=== PATIENT | female | born 1945 | race Caucasian/White ===

== ENCOUNTER 2024-02-02 10:14 | Outpatient (AMB) | payer MEDICARE, SELFPAY ==
--- NOTE | 2024-02-02 10:18 | MHC.PC.OV ---
Vital Signs 02/02/24 10:33 Height 4 ft 11.65 in Weight 163 lb 8 oz BMI 32.3 BP 128/70 Blood Pressure Location Lt brachial Position Sitting Respiration 14 Pulse 87 Pulse Source Pulse Oximeter Temp 98.1 F Temp Source Oral Pulse Oximetry (%) 97 Oxygen Delivery Method Room Air Intake Visit Reasons: ESTABLISH CARE Intake Note: New patient visit Allergies codeine Allergy (Unknown, Verified 02/02/24 10:29) Nausea morphine Allergy (Unknown, Verified 02/02/24 10:29) Nausea tizanidine Allergy (Unknown, Verified 02/02/24 10:29) dry mouth Medication List - Last Reconciled 02/02/24 by Richelle Holcomb PA-C amlodipine 2.5 mg PO DAILY levothyroxine 88 mcg PO DAILY multivitamin 1 tab PO DAILY omeprazole 20 mg PO DAILY semaglutide (Ozempic) mg subcut tramadol 50 mg PO BID PRN vitamins A,C,H-qjkt-ahhqrt 2,148 mcg-113 mg-45 mg-17.4mg (PreserVision AREDS) 2 tabs PO BID Tobacco use date assessed: 02/02/24 Fall risk assessment: 2 + Falls in past year (Tripped) Last assessed Fall Risk: 02/02/24 Dental Screening Dental Screen Date: 02/02/24 Did you have a dental visit in the last 12 months?: Yes Did you have a dental problem in the last 6 months where you did not have access to dental care?: No Was dental information given to patient?: Patient has dentist HPI ESTABLISH CARE HPI Details Patient is an 78 year old female with a significant past medical history of hypothyroidism, CKD stage 3, hypertension, 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 This is her 1st visit here and she was last seen by myself in August. Psych: Her daughter, Tita, in December. She was dx with metastatic melanoma and within 2 weeks . Patient states that she is really struggling with this and most of our visit today was spent discussing Tita. She was her daughter who went everywhere with her. Tita has 3 boys, the youngest is 25. She states that this was sudden and unexpected and has been very challenging. She knows someone through the home who helps with grief counseling and states that she will consider reaching out if this does not gradually improve. She has 3 other children and 2 of them live very close by and her daughter who is in [place] calls in all the time. She states that she also goes to anglican. CV: bp today is wnl. She is on amlodipine 2.5 mg and losartan 50 mg Endo: last tsh was wnl. on levothyroxine 88 mcg. Her dm is managed with ozempic. Her last A1c was 6.4. Nephro: Follows with Dr. Brito. Musculoskeletal: Feels better with tramadol at night. States her neck pain and neuropathy feel better. [facility] Medical History (Updated 02/02/24 @ 12:52 by Richelle Holcomb PA-C) Vitreous hemorrhage, unspecified eye Hyperglycemia Type 2 diabetes mellitus Postablative hypothyroidism Obesity, Class I, BMI 30-34.9 Mild mitral regurgitation Macular degeneration Lumbar spinal stenosis Lumbar pain with radiation down both legs Hypothyroidism HTN (hypertension) History of nephrolithiasis Dyslipidemia Diabetic neuropathy CKD stage 3 due to type 2 diabetes mellitus Cervical spondylosis Surgical History (Updated 02/02/24 @ 11:02 by Tracy Mcintyre CMA) History of bilateral knee replacement History of colonoscopy Family History (Updated 02/02/24 @ 11:05 by Tracy Mcintyre CMA) Mother Family history of CABG Father Alcoholism Daughter Melanoma Sister Cirrhosis of liver Other Substance use Social History (Updated 02/02/24 @ 11:06 by Tracy Mcintyre CMA) Housing: House Patient Tobacco Use Status: Never used Tobacco e-Cigarette/Vaping Use: Never Used Second Hand Smoke Exposure: No service: No Current occupational status: retired Current occupational exposures/hazards: No Cognitive needs: No Hearing needs: No Vision needs: No Questionnaire PHQ-9 Over the last 2 weeks, how often have you been bothered by any of the following problems? 1. Little interest or pleasure in doing things: several days 2. Feeling down, depressed, or hopeless: several days 3. Trouble falling or staying asleep, or sleeping too much: not at all 4. Feeling tired or having little energy: several days 5. Poor appetite or overeating: several days 6. Feeling bad about yourself - or that you are a failure or have let yourself or your family down: not at all 7. Trouble concentrating on things, such as reading the newspaper or watching television: several days 8. Moving or speaking so slowly that other people could have noticed. Or the opposite - being so fidgety or restless that you have been moving around a lot more than usual: not at all 9. Thoughts that you would be better off or of hurting yourself in some way: not at all Total score: 5 Depression Screening Interpretation: Positive Depression Screening Done: Yes 06719 - PHQ-9 Billing: Yes Source: Developed by Drs. Artemio Diaz, Belinda Ding, Christian Godinez and colleagues, with an educational tonia from [employer]. Thrive Questionnaire Date Thrive assessed: 02/02/24 I am a: Patient What is your living situation today?: I have a steady place to live Within the past 12 months, did the food you bought not last and you didn't have the money to get more?: Never true Within the past 12 months, did you worry whether your food would run out before you got money to buy more?: Never true Do you have trouble paying for medicines?: No Do you have trouble getting transportation to medical appointments?: No Do you have trouble paying your heating and electricity bill?: No Do you have trouble taking care of your child, family member or friend?: No Do you have trouble with day-to-day activities such as bathing, preparing meals, shopping, managing finances, etc.?: No Are you currently unemployed and looking for a job?: No Are you interested in more education?: No Please select the resources that you would like help with: None Currently or been in a relationship where the following occur: No concerns reported THRIVE Score: 0 AUDIT C Alcohol Use Questionnaire (AUDIT-C) 1. How often do you have a drink containing alcohol?: Never 3. How often do you have six or more drinks on one occasion?: Never Total Score: 0 BRIAN-7 AMB Questionnaire BRIAN-7 Date BRIAN - 7 assessed: 02/02/24 Feeling nervous, anxious, or on edge: 1 = Several days Not being able to stop or control worryin = Several days Worrying too much about different things: 0 = Not at all Trouble relaxin = Not at all Being so restless that it is hard to sit still: 0 = Not at all Becoming easily annoyed or irritable: 0 = Not at all Feeling afraid as if something awful might happen: 0 = Not at all Total BRIAN-7 score (0-4 normal; 5-9 mild; 10-14 moderate; 15-21 severe): 2 Source: Developed by Drs. Artemio Diaz, Belinda Ding, Christian Godinez and colleagues, with an educational tonia from [employer]. BRIAN-7 Assessment Billing BRIAN-7 Assessment Tool: BRIAN-7 Assessment 77058 Physical exam (Primary Care) Vital Signs: Last Vital Signs Temp 98.1 F 02/02/24 10:33 Pulse 87 02/02/24 10:33 Resp 14 02/02/24 10:33 BP 128/70 02/02/24 10:33 Pulse Ox 97 02/02/24 10:33 Oxygen Delivery Method Room Air 02/02/24 10:33 BMI result Body Mass Index 32.3 Tobacco/Smoking Status: Tobacco use Status Tobacco use date assessed 02/02/24 02/02/24 10:22 Patient Tobacco Use Status Never used Tobacco 02/02/24 11:06 e-Cigarette/Vaping Use Never Used 02/02/24 11:06 PHQ-9: PHQ-9 Score PHQ-9: Total score 5 02/02/24 11:06 Depression Screening Interpretation: Positive Thrive Assessment: Date of Thrive Assessment Date Thrive assessed 02/02/24 02/02/24 11:06 Currently or been in a relationship where the following occur: No concerns reported Const Orientation/consciousness: patient oriented x3 HENMT Ears: hearing grossly normal bilaterally Neck Thyroid: Thyroid normal Lymphatic: no lymphadenopathy noted Resp Auscultation: clear to auscultation bilaterally Cardio Rate: regular rate Rhythm: regular rhythm Heart sounds: S1 normal heart sound present and S2 normal heart sound present GI Inspection: Yes normal to inspection Palpation (GI): Soft to palpation and Other GI palpation findings present (nontender, no cva tenderness) Auscultation: normoactive bowel sounds Rectal Exam - Female: deferred Skin General skin exam: no rashes or lesions noted Neuro General: patient oriented x3, gait normal and no focal motor deficits Assessment and Plan Assessment & Plan (1) Controlled type 2 diabetes mellitus: Code(s): E11.9 - Type 2 diabetes mellitus without complications Qualifiers: Diabetes mellitus alf insulin use: without alf use Diabetes mellitus complication status: with kidney complications Diabetes mellitus complication detail: with chronic kidney disease Chronic kidney disease stage: stage 3 (moderate) Qualified Code(s): E11.22 - Type 2 diabetes mellitus with diabetic chronic kidney disease; N18.30 - Chronic kidney disease, stage 3 unspecified Plan: Currently well-controlled with Ozempic 0.5 mg. Continue current regimen. Diabetic labs ordered. Follow up in 3 months. Sooner if needed. (2) Postablative hypothyroidism: Code(s): E89.0 - Postprocedural hypothyroidism Plan: TSH ordered. Continue levothyroxine 88 mcg. (3) Dyslipidemia: Code(s): E78.5 - Hyperlipidemia, unspecified Plan: Diet controlled. (4) Diabetic neuropathy: Code(s): E11.40 - Type 2 diabetes mellitus with diabetic neuropathy, unspecified Qualifiers: Diabetes mellitus type: type 2 Diabetes mellitus complication detail: diabetic polyneuropathy Qualified Code(s): E11.42 - Type 2 diabetes mellitus with diabetic polyneuropathy Plan: No improvement with gabapentin. Tolerates tramadol. (5) CKD stage 3 due to type 2 diabetes mellitus: Code(s): E11.22 - Type 2 diabetes mellitus with diabetic chronic kidney disease; N18.30 - Chronic kidney disease, stage 3 unspecified Plan: Follows with Dr. Brito. (6) HTN (hypertension): Code(s): I10 - Essential (primary) hypertension Qualifiers: Hypertension type: primary hypertension Qualified Code(s): I10 - Essential (primary) hypertension Plan: Recently had amlodipine added to her regimen. She is also on losartan 50 mg. (7) Grief reaction: Code(s): F43.21 - Adjustment disorder with depressed mood Plan: offered referral/medication and declines. has a good support system with son and daughter and anglican. She will let me know if she changes her mind Coding Level of Care Code Est Pt Level 4 (44364) Complex EM visit Add On G2211 Diagnoses Controlled type 2 diabetes mellitus with stage 3 chronic kidney disease, without long-term current use of insulin E11.22; N18.30 Diabetes mellitus predatory animal exterminator insulin use: without predatory animal exterminator use Diabetes mellitus complication status: with kidney complications Diabetes mellitus complication detail: with chronic kidney disease Chronic kidney disease stage: stage 3 (moderate) Postablative hypothyroidism E89.0 Dyslipidemia E78.5 Diabetic polyneuropathy associated with type 2 diabetes mellitus E11.42 Diabetes mellitus type: type 2 Diabetes mellitus complication detail: diabetic polyneuropathy CKD stage 3 due to type 2 diabetes mellitus E11.22; N18.30 Primary hypertension I10 Hypertension type: primary hypertension Grief reaction F43.21 Additional Codes BRIAN-7 Assessment Billing - BRIAN-7 Assessment Tool: BRIAN-7 Assessment [id number] ([id number])
[2024-02-02 10:33] VITALS: BP 128/70; PULSE 87; RESP 14; TEMP 36.7; O2SAT 97; BMI 32.3
== END 2024-02-02 11:49 | disposition home or self-care (01) ==
PROVIDERS: PCP Physician Assistant; Visit Provider Physician Assistant
DX: I12.9 Hypertensive chronic kidney disease with stage 1 through stage 4 chronic kidney disease, or unspecified chronic kidney disease (principal); E11.22 Type 2 diabetes mellitus with diabetic chronic kidney disease; N18.30 Chronic kidney disease, stage 3 unspecified; E11.42 Type 2 diabetes mellitus with diabetic polyneuropathy; E89.0 Postprocedural hypothyroidism; E78.5 Hyperlipidemia, unspecified; F43.21 Adjustment disorder with depressed mood
CPT/HCPCS: 99214; G2211

== ENCOUNTER 2024-04-12 07:33 | Outpatient (REF) | payer MEDICARE, SELFPAY ==
[2024-04-12 11:42] LABS: Estimated Average Glucose 140 mg/dL; Hemoglobin A1C 151.3382 umol/L; Hemoglobin A1c % 6.5 % (<6.0); Total Hemoglobin (HGBA1C) 3203.5896 umol/L
[2024-04-12 12:33] LABS: Alanine Aminotransferase 22 U/L (0-31); Albumin Level 4.2 g/dL (3.5-5.0); Alkaline Phosphatase 53 U/L (39-117); Anion Gap 12 (12-20); Aspartate Amino Transferase 34 U/L (5-31); Bilirubin Total 0.3 mg/dL (0.0-1.0); Blood Urea Nitrogen 24 mg/dL (9-16); Calcium 10.8 mg/dL (8.4-10.2); Carbon Dioxide 28 mmol/L (22-29); Chloride 105 mmol/L (96-108); Cholesterol 203 mg/dL (<200); Estimated Glomerular Filt Rate 37; Glucose Random 133 mg/dL (60-115); HDL Cholesterol 44 mg/dL (>40); LDL Cholesterol Calculated 104 mg/dL (<100); Sodium 141 mmol/L (135-145); TSH reflex Free T4 0.83 uIU/mL (0.32-4.0); Total Protein 7.6 g/dL (6.5-8.0); Triglycerides 279 mg/dL (<150)
[2024-04-12 12:33] LABS: Microalbum/Creatinine Ratio Ur 179.6 ug/mg cr (<30)
== END 2024-04-12 07:34 | disposition home or self-care (01) ==
LOC: HO.WFDLDS 07:33
PROVIDERS: Visit Provider Physician Assistant
DX: E11.22 Type 2 diabetes mellitus with diabetic chronic kidney disease (principal); N18.30 Chronic kidney disease, stage 3 unspecified; E89.0 Postprocedural hypothyroidism
CPT/HCPCS: 36415; 80053; 80061; 82043; 82570; 83036; 84443

== ENCOUNTER 2024-05-04 08:19 | Outpatient (AMB) | payer MEDICARE, SELFPAY ==
--- NOTE | 2024-05-04 08:28 | MHC.PC.OV ---
Vital Signs 05/04/24 08:33 Height 4 ft 11.65 in Weight 165 lb 8 oz BMI 32.7 BP 128/78 Blood Pressure Location Rt brachial Position Sitting Intake Visit Reasons: F/U Labs Intake Note: Follow up Allergies codeine Allergy (Unknown, Verified 05/04/24 08:28) Nausea morphine Allergy (Unknown, Verified 05/04/24 08:28) Nausea tizanidine Allergy (Unknown, Verified 05/04/24 08:28) dry mouth Medication List - Last Reconciled 05/04/24 by iRchelle Holcomb PA-C amlodipine 2.5 mg PO DAILY cholecalciferol (vitamin D3) 25 mcg PO DAILY levothyroxine 88 mcg PO DAILY losartan 25 mg PO DAILY mecobalamin (vitamin B12) 1,000 mcg sublingual DAILY metformin ER 500 mg PO TID multivitamin 1 tab PO DAILY omeprazole 20 mg PO DAILY [quinine 500 2 tablets daily] semaglutide (Ozempic) mg subcut tramadol 50 mg PO BID PRN 30 days vitamins A,C,G-qlag-cbipbh 2,148 mcg-113 mg-45 mg-17.4mg (PreserVision AREDS) 2 tabs PO BID Tobacco use date assessed: 02/02/24 Dental Screening Dental Screen Date: 02/02/24 HPI F/U Labs HPI Details Patient is an 78 year old female with a significant past medical history of hypothyroidism, CKD stage 3, hypertension, 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 Psych: Her daughter, Tita, in December. She was dx with metastatic melanoma and within 2 weeks . Patient states that she is really struggling with this and most of our visit today was spent discussing Tita. She was her daughter who went everywhere with her. Tita has 3 boys, the youngest is 25. She states that this was sudden and unexpected and has been very challenging. She knows someone through the home who helps with grief counseling and states that she will consider reaching out if this does not gradually improve. She has 3 other children and 2 of them live very close by and her daughter who is in [place] calls in all the time. She states that she also goes to restorationist. CV: bp today is wnl. She is on amlodipine 2.5 mg and losartan 50 mg Endo: Last calcium level was elevated however patient has been taking calcium and vitamin-D. last tsh was wnl. on levothyroxine 88 mcg. Her dm is managed with ozempic and metformin. Her last A1c was 6.5. Tolerating Ozempic well. Nephro: Follows with Dr. Brito. Musculoskeletal: Feels better with tramadol at night. States her neck pain and neuropathy feel better. [facility] Medical History (Updated 02/02/24 @ 12:52 by Richelle Holcomb PA-C) Vitreous hemorrhage, unspecified eye Hyperglycemia Type 2 diabetes mellitus Postablative hypothyroidism Obesity, Class I, BMI 30-34.9 Mild mitral regurgitation Macular degeneration Lumbar spinal stenosis Lumbar pain with radiation down both legs Hypothyroidism HTN (hypertension) History of nephrolithiasis Dyslipidemia Diabetic neuropathy CKD stage 3 due to type 2 diabetes mellitus Cervical spondylosis Surgical History History of bilateral knee replacement History of colonoscopy Family History Mother Family history of CABG Father Alcoholism Daughter Melanoma Sister Cirrhosis of liver Other Substance use Social History (Updated 05/04/24 @ 08:37 by Tracy Mcintyre CMA) Housing: House Alcohol intake: never Patient Tobacco Use Status: Never used Tobacco e-Cigarette/Vaping Use: Never Used Second Hand Smoke Exposure: No service: No Current occupational status: retired Current occupational exposures/hazards: No Cognitive needs: No Hearing needs: No Vision needs: No Questionnaire PHQ-9 Over the last 2 weeks, how often have you been bothered by any of the following problems? 1. Little interest or pleasure in doing things: not at all 2. Feeling down, depressed, or hopeless: not at all 3. Trouble falling or staying asleep, or sleeping too much: not at all 4. Feeling tired or having little energy: not at all 5. Poor appetite or overeating: not at all 6. Feeling bad about yourself - or that you are a failure or have let yourself or your family down: not at all 7. Trouble concentrating on things, such as reading the newspaper or watching television: not at all 8. Moving or speaking so slowly that other people could have noticed. Or the opposite - being so fidgety or restless that you have been moving around a lot more than usual: not at all 9. Thoughts that you would be better off or of hurting yourself in some way: not at all Total score: 0 Depression Screening Interpretation: Negative Depression Screening Done: Yes 57827 - PHQ-9 Billing: Yes Source: Developed by Drs. Artemio Diaz, Belinda Ding, Christian Godinez and colleagues, with an educational tonia from [employer]. Thrive Questionnaire Date Thrive assessed: 05/04/24 I am a: Patient What is your living situation today?: I have a steady place to live Within the past 12 months, did the food you bought not last and you didn't have the money to get more?: Never true Within the past 12 months, did you worry whether your food would run out before you got money to buy more?: Never true Do you have trouble paying for medicines?: No Do you have trouble getting transportation to medical appointments?: No Do you have trouble paying your heating and electricity bill?: No Do you have trouble taking care of your child, family member or friend?: No Do you have trouble with day-to-day activities such as bathing, preparing meals, shopping, managing finances, etc.?: No Are you currently unemployed and looking for a job?: No Are you interested in more education?: No Please select the resources that you would like help with: None Currently or been in a relationship where the following occur: No concerns reported THRIVE Score: 0 AUDIT C Alcohol Use Questionnaire (AUDIT-C) 1. How often do you have a drink containing alcohol?: Never 3. How often do you have six or more drinks on one occasion?: Never Total Score: 0 BRIAN-7 AMB Questionnaire BRIAN-7 Date BRIAN - 7 assessed: 05/04/24 Feeling nervous, anxious, or on edge: 0 = Not at all Not being able to stop or control worryin = Not at all Worrying too much about different things: 0 = Not at all Trouble relaxin = Not at all Being so restless that it is hard to sit still: 0 = Not at all Becoming easily annoyed or irritable: 0 = Not at all Feeling afraid as if something awful might happen: 0 = Not at all Total BRIAN-7 score (0-4 normal; 5-9 mild; 10-14 moderate; 15-21 severe): 0 Source: Developed by Drs. Artemio Diaz, Belinda Ding, Christian Godinez and colleagues, with an educational tonia from [employer]. BRIAN-7 Assessment Billing BRIAN-7 Assessment Tool: BRIAN-7 Assessment 01905 Physical exam (Primary Care) Vital Signs: Last Vital Signs BP 128/78 05/04/24 08:33 BMI result Body Mass Index 32.7 Tobacco/Smoking Status: Tobacco use Status Tobacco use date assessed 02/02/24 05/04/24 08:35 Patient Tobacco Use Status Never used Tobacco 05/04/24 08:37 e-Cigarette/Vaping Use Never Used 05/04/24 08:37 PHQ-9: PHQ-9 Score PHQ-9: Total score 0 05/04/24 08:42 Depression Screening Interpretation: Negative Thrive Assessment: Date of Thrive Assessment Date Thrive assessed 05/04/24 05/04/24 08:37 Currently or been in a relationship where the following occur: No concerns reported Const Orientation/consciousness: patient oriented x3 HENMT Ears: hearing grossly normal bilaterally Neck Thyroid: Thyroid normal Lymphatic: no lymphadenopathy noted Resp Auscultation: clear to auscultation bilaterally Cardio Rate: regular rate Rhythm: regular rhythm Heart sounds: S1 normal heart sound present and S2 normal heart sound present Skin General skin exam: no rashes or lesions noted Neuro General: patient oriented x3, gait normal and no focal motor deficits Results Reviewed Results Reviewed: Laboratory Tests 04/12/24 04/12/24 07:35 07:42 Sodium 141 Potassium 4.0 Chloride 105 BUN 24 H Creatinine 1.37 Estimated GFR 37 Estimat Average Glucose 140 Hemoglobin A1c % 6.5 H Calcium 10.8 H AST 34 H ALT 22 Alkaline Phosphatase 53 Triglycerides 279 H Cholesterol 203 H LDL Cholesterol, Calc 104 H HDL Cholesterol 44 TSH 0.83 Urine Creatinine 133.60 Urine Microalbumin 240.0 Microalb/Creat Ratio 179.6 H Coding Level of Care Code Est Pt Level 4 (73867) Complex EM visit Add On G2211 Diagnoses CKD stage 3 due to type 2 diabetes mellitus E11.22; N18.30 Primary hypertension I10 Hypertension type: primary hypertension Controlled type 2 diabetes mellitus with stage 3 chronic kidney disease, without long-term current use of insulin E11.22; N18.30 Chronic kidney disease stage: stage 3 (moderate) Diabetes mellitus complication detail: with chronic kidney disease Diabetes mellitus complication status: with kidney complications Diabetes mellitus terminal operations manager insulin use: without prison use Hypercalcemia E83.52 Additional Codes BRIAN-7 Assessment Billing - BRIAN-7 Assessment Tool: BRIAN-7 Assessment 01991 ([id number]) PHQ-9 - 04652 - PHQ-9 Billing: Yes ([id number]) Assessment & Plan Assessment & Plan (1) CKD stage 3 due to type 2 diabetes mellitus: Code(s): E11.22 - Type 2 diabetes mellitus with diabetic chronic kidney disease; N18.30 - Chronic kidney disease, stage 3 unspecified Category: Medical Plan: Following with Nephrology (2) HTN (hypertension): Code(s): I10 - Essential (primary) hypertension Category: Medical Qualifiers: Hypertension type: primary hypertension Qualified Code(s): I10 - Essential (primary) hypertension Plan: WNL. Continue current regimen (3) Controlled type 2 diabetes mellitus: Code(s): E11.9 - Type 2 diabetes mellitus without complications Category: Medical Qualifiers: Chronic kidney disease stage: stage 3 (moderate) Diabetes mellitus complication detail: with chronic kidney disease Diabetes mellitus complication status: with kidney complications Diabetes mellitus terminal operations manager insulin use: without prison use Qualified Code(s): E11.22 - Type 2 diabetes mellitus with diabetic chronic kidney disease; N18.30 - Chronic kidney disease, stage 3 unspecified Plan: Discontinue metformin. Increase Ozempic. (4) Hypercalcemia: Code(s): E83.52 - Hypercalcemia Plan: Discontinue calcium supplement. Take vitamin-D alone. Recheck lab in a few weeks. Orders: Orders Basic Metabolic Panel Today E11.22 - Type 2 diabetes mellitus with diabetic chronic kidney disease, E83.52 - Hypercalcemia, I10 - Essential (primary) hypertension, N18.30 - Chronic kidney disease, stage 3 unspecified Medications: New semaglutide (Ozempic) 1 mg (0.75 mL) subcut QWEEK 3 mL 3RF
[2024-05-04 08:33] VITALS: BP 128/78; BMI 32.7
== END 2024-05-04 09:12 | disposition home or self-care (01) ==
PROVIDERS: PCP Physician Assistant; Visit Provider Physician Assistant
DX: E11.22 Type 2 diabetes mellitus with diabetic chronic kidney disease (principal); N18.30 Chronic kidney disease, stage 3 unspecified; I10 Essential (primary) hypertension; E83.52 Hypercalcemia

== ENCOUNTER → 2024-05-04 08:19 | Outpatient (BNVA) | payer MEDICARE, SELFPAY | PROVIDERS: PCP Physician Assistant; Visit Provider Physician Assistant | DX: I12.9 Hypertensive chronic kidney disease with stage 1 through stage 4 chronic kidney disease, or unspecified chronic kidney disease (principal); E11.22 Type 2 diabetes mellitus with diabetic chronic kidney disease; N18.30 Chronic kidney disease, stage 3 unspecified; E83.52 Hypercalcemia | CPT/HCPCS: 96127; 99212 ==

== ENCOUNTER 2024-06-26 08:17 | Outpatient (REF) | payer MEDICARE, SELFPAY ==
[2024-06-26 12:13] LABS: Anion Gap 12 (12-20); Blood Urea Nitrogen 27 mg/dL (9-16); Calcium 10.4 mg/dL (8.4-10.2); Carbon Dioxide 26 mmol/L (22-29); Chloride 106 mmol/L (96-108); Estimated Glomerular Filt Rate 33; Glucose Random 129 mg/dL (60-115); Potassium 4.4 mmol/L (3.3-5.1); Sodium 140 mmol/L (135-145)
== END 2024-06-26 08:18 | disposition home or self-care (01) ==
LOC: HO.WFDLDS 08:17
PROVIDERS: Visit Provider Physician Assistant
DX: E11.22 Type 2 diabetes mellitus with diabetic chronic kidney disease (principal); N18.30 Chronic kidney disease, stage 3 unspecified; I10 Essential (primary) hypertension; E83.52 Hypercalcemia
CPT/HCPCS: 36415; 80048

== ENCOUNTER 2024-07-06 10:06 | Outpatient (AMB) | payer MEDICARE, SELFPAY ==
--- NOTE | 2024-07-06 10:15 | A.OFFPC_ITS ---
Vital Signs 07/06/24 10:17 Height 4 ft 11.65 in Weight 167 lb 2 oz BMI 33.0 BP 136/72 Blood Pressure Location Rt brachial Position Sitting Pulse 72 Pulse Source Pulse Oximeter Pulse Oximetry (%) 98 Oxygen Delivery Method Room Air Intake Visit Reasons: labs Allergies codeine Allergy (Unknown, Verified 05/04/24 08:28) Nausea morphine Allergy (Unknown, Verified 05/04/24 08:28) Nausea tizanidine Allergy (Unknown, Verified 05/04/24 08:28) dry mouth Medication List - Last Reconciled 07/06/24 by Richelle Holcomb PA-C amlodipine 2.5 mg PO DAILY cholecalciferol (vitamin D3) 25 mcg PO DAILY levothyroxine 88 mcg PO DAILY losartan 25 mg PO DAILY mecobalamin (vitamin B12) 1,000 mcg sublingual DAILY multivitamin 1 tab PO DAILY omeprazole 20 mg PO DAILY [quinine 500 2 tablets daily] semaglutide (Ozempic) 1 mg (0.75 mL) subcut QWEEK tramadol 50 mg PO BID PRN 30 days vitamins A,C,E-zvea-dujdmp 2,148 mcg-113 mg-45 mg-17.4mg (PreserVision AREDS) 2 tabs PO BID Tobacco use date assessed: 02/02/24 Dental Screening Dental Screen Date: 02/02/24 HPI labs HPI Details Patient is an 78 year old female with a significant past medical history of hypothyroidism, CKD stage 3, hypertension, 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 Psych: Her daughter, Tita, in December. She was dx with metastatic melanoma and within 2 weeks . She is overall coping and doing better. She does not want to speak with anyone about this and has a good support system. She was her daughter who went everywhere with her. Tita has 3 boys, the youngest is 25. She has 3 other children and 2 of them live very close by and her daughter who is in [place] calls in all the time. She states that she also goes to orthodox. CV: bp today is wnl. She is on amlodipine 2.5 mg and losartan 50 mg Endo: Last calcium level was elevated despite stopping calcium supplements. last tsh was wnl. on levothyroxine 88 mcg. Her dm is managed with ozempic. Tolerating Ozempic well. States that her GI upset resolved once she discontinued the metformin.. Her last A1c was 6.5. Nephro: Follows with Dr. Brito. Musculoskeletal: Feels better with tramadol 1 to 2 times a day. States her neck pain and neuropathy feel better. She thinks that she should see [facility] again because her low back has been stiff and achy. This was bothered her on and off for years.. At times it goes into the right buttock. She states the right hip is achy as well. She is worried about seeing someone for the hip because she had her left hip replaced a few years ago and it is still painful. No urinary symptoms. Ambulates without assistive devices. No numbness, tingling or weakness. [facility] Medical History (Updated 07/06/24 @ 10:35 by Richelle Holcomb PA-C) Vitreous hemorrhage, unspecified eye Hyperglycemia Type 2 diabetes mellitus Postablative hypothyroidism Obesity, Class I, BMI 30-34.9 Mild mitral regurgitation Macular degeneration Lumbar spinal stenosis Lumbar pain with radiation down both legs Hypothyroidism HTN (hypertension) History of nephrolithiasis Dyslipidemia Diabetic neuropathy CKD stage 3 due to type 2 diabetes mellitus Cervical spondylosis Surgical History History of bilateral knee replacement History of colonoscopy Family History Mother Family history of CABG Father Alcoholism Daughter Melanoma Sister Cirrhosis of liver Other Substance use Social History (Updated 07/06/24 @ 10:20 by Tracy Mcintyre CMA) Housing: House Alcohol intake: never Patient Tobacco Use Status: Never used Tobacco e-Cigarette/Vaping Use: Never Used Second Hand Smoke Exposure: No service: No Current occupational status: retired Current occupational exposures/hazards: No Cognitive needs: No Hearing needs: No Vision needs: No Questionnaire PHQ-9 Over the last 2 weeks, how often have you been bothered by any of the following problems? 1. Little interest or pleasure in doing things: not at all 2. Feeling down, depressed, or hopeless: not at all 3. Trouble falling or staying asleep, or sleeping too much: several days 4. Feeling tired or having little energy: several days 5. Poor appetite or overeating: not at all 6. Feeling bad about yourself - or that you are a failure or have let yourself or your family down: not at all 7. Trouble concentrating on things, such as reading the newspaper or watching television: not at all 8. Moving or speaking so slowly that other people could have noticed. Or the opposite - being so fidgety or restless that you have been moving around a lot more than usual: not at all 9. Thoughts that you would be better off or of hurting yourself in some way: not at all Total score: 2 Depression Screening Interpretation: Negative Depression Screening Done: Yes 24578 - PHQ-9 Billing: Yes Source: Developed by Drs. Artemio Diaz, Belinda Ding, Christian Godinez and colleagues, with an educational tonia from [employer]. Thrive Questionnaire Date Thrive assessed: 07/06/24 I am a: Patient What is your living situation today?: I have a steady place to live Within the past 12 months, did the food you bought not last and you didn't have the money to get more?: Never true Within the past 12 months, did you worry whether your food would run out before you got money to buy more?: Never true Do you have trouble paying for medicines?: No Do you have trouble getting transportation to medical appointments?: No Do you have trouble paying your heating and electricity bill?: No Do you have trouble taking care of your child, family member or friend?: No Do you have trouble with day-to-day activities such as bathing, preparing meals, shopping, managing finances, etc.?: No Are you currently unemployed and looking for a job?: No Are you interested in more education?: No Please select the resources that you would like help with: Utilities Currently or been in a relationship where the following occur: No concerns reported THRIVE Score: 0 AUDIT C Alcohol Use Questionnaire (AUDIT-C) 1. How often do you have a drink containing alcohol?: Never Total Score: 0 Score Reviewed/Action Taken: Yes BRIAN-7 AMB Questionnaire BRIAN-7 Date BRIAN - 7 assessed: 07/06/24 Feeling nervous, anxious, or on edge: 1 = Several days Not being able to stop or control worryin = Several days Worrying too much about different things: 1 = Several days Trouble relaxin = Not at all Being so restless that it is hard to sit still: 0 = Not at all Becoming easily annoyed or irritable: 0 = Not at all Feeling afraid as if something awful might happen: 0 = Not at all Total BRIAN-7 score (0-4 normal; 5-9 mild; 10-14 moderate; 15-21 severe): 3 Source: Developed by Drs. Artemio Diaz, Belinda Ding, Christian Godinez and colleagues, with an educational tonia from [employer]. BRIAN-7 Assessment Billing BRIAN-7 Assessment Tool: BRIAN-7 Assessment 03554 Physical exam (Primary Care) Vital Signs: Last Vital Signs Pulse 72 07/06/24 10:17 BP 136/72 07/06/24 10:17 Pulse Ox 98 07/06/24 10:17 Oxygen Delivery Method Room Air 07/06/24 10:17 BMI result Body Mass Index 33.0 Tobacco/Smoking Status: Tobacco use Status Tobacco use date assessed 02/02/24 07/06/24 10:16 Patient Tobacco Use Status Never used Tobacco 07/06/24 10:20 e-Cigarette/Vaping Use Never Used 07/06/24 10:20 PHQ-9: PHQ-9 Score PHQ-9: Total score 2 07/06/24 10:20 Depression Screening Interpretation: Negative Thrive Assessment: Date of Thrive Assessment Date Thrive assessed 07/06/24 07/06/24 10:20 Currently or been in a relationship where the following occur: No concerns reported Const Orientation/consciousness: patient oriented x3 HENMT Ears: hearing grossly normal bilaterally Neck Thyroid: Thyroid normal Lymphatic: no lymphadenopathy noted Resp Auscultation: clear to auscultation bilaterally Cardio Rate: regular rate Rhythm: regular rhythm Heart sounds: S1 normal heart sound present and S2 normal heart sound present GI Inspection: Yes normal to inspection Palpation (GI): Soft to palpation and Other GI palpation findings present (nontender, no cva tenderness) Auscultation: normoactive bowel sounds Rectal Exam - Female: deferred Skin General skin exam: no rashes or lesions noted Neuro General: patient oriented x3, gait normal and no focal motor deficits Results Reviewed Results Reviewed: Laboratory Tests 04/12/24 06/26/24 07:35 08:17 Creatinine 1.37 1.52 H Random Glucose 133 H 129 H Hemoglobin A1c % 6.5 H Calcium 10.8 H 10.4 H Coding Level of Care Code Est Pt Level 4 (81781) Complex EM visit Add On G2211 Diagnoses CKD stage 3 due to type 2 diabetes mellitus E11.22; N18.30 Primary hypertension I10 Hypertension type: primary hypertension Hypercalcemia E83.52 Postablative hypothyroidism E89.0 Dyslipidemia E78.5 Right hip pain M25.551 Lumbar pain M54.50 Additional Codes PHQ-9 - 08792 - PHQ-9 Billing: Yes ([id number]) BRIAN-7 Assessment Billing - BRIAN-7 Assessment Tool: BRIAN-7 Assessment 99896 ([id number]) Assessment & Plan Assessment & Plan (1) CKD stage 3 due to type 2 diabetes mellitus: Code(s): E11.22 - Type 2 diabetes mellitus with diabetic chronic kidney disease; N18.30 - Chronic kidney disease, stage 3 unspecified Category: Medical Plan: Following with Dr. Brito for her kidney function. Stable. We will rechecked dax munson. Doing very well on Ozempic. We will continue to monitor. A1c ordered. (2) HTN (hypertension): Code(s): I10 - Essential (primary) hypertension Category: Medical Qualifiers: Hypertension type: primary hypertension Qualified Code(s): I10 - Essential (primary) hypertension Plan: WNL (3) Hypercalcemia: Code(s): E83.52 - Hypercalcemia Category: Medical Plan: Labs ordered. We will follow up pending test results. (4) Postablative hypothyroidism: Code(s): E89.0 - Postprocedural hypothyroidism Category: Medical Plan: We will monitor TSH (5) Dyslipidemia: Code(s): E78.5 - Hyperlipidemia, unspecified Category: Medical Plan: Overdue for lipids (6) Right hip pain: Code(s): M25.551 - Pain in right hip Category: Medical Plan: X-rays ordered. Referral to physiatry. Phone number provided. (7) Lumbar pain: Code(s): M54.50 - Low back pain, unspecified Category: Medical Plan . Orders: Orders Lipid Panel Today E78.5 - Hyperlipidemia, unspecified Basic Metabolic Panel Today E11.22 - Type 2 diabetes mellitus with diabetic chronic kidney disease, E83.52 - Hypercalcemia, I10 - Essential (primary) hypertension, N18.30 - Chronic kidney disease, stage 3 unspecified TSH reflex Free T4 Today E89.0 - Postprocedural hypothyroidism Hemoglobin A1c Today R73.01 - Impaired fasting glucose XR lumbar spine 2-3V Today M25.551 - Pain in right hip, M54.50 - Low back pain, unspecified XR hip RT w PEL 1V Today M25.551 - Pain in right hip, M54.50 - Low back pain, unspecified Referrals Physiatry Referral M25.551 - Pain in right hip, M54.50 - Low back pain, unspecified Medications: Refilled tramadol 50 mg PO BID 30 days PRN 60 tabs 0RF pain semaglutide (Ozempic) 1 mg (0.75 mL) subcut QWEEK 9 mL 3RF
[2024-07-06 10:17] VITALS: BP 136/72; PULSE 72; O2SAT 98; BMI 33.0
== END 2024-07-06 11:08 | disposition home or self-care (01) ==
PROVIDERS: PCP Physician Assistant; Visit Provider Physician Assistant
DX: E11.22 Type 2 diabetes mellitus with diabetic chronic kidney disease (principal); N18.30 Chronic kidney disease, stage 3 unspecified; I10 Essential (primary) hypertension; E83.52 Hypercalcemia; E89.0 Postprocedural hypothyroidism; E78.5 Hyperlipidemia, unspecified; M25.551 Pain in right hip; M54.50 Low back pain, unspecified

== ENCOUNTER 2024-07-06 11:02 | Outpatient (REF) | payer MEDICARE, SELFPAY ==
[2024-07-06 14:17] LABS: Estimated Average Glucose 154 mg/dL; Hemoglobin A1C 176.5952 umol/L; Total Hemoglobin (HGBA1C) 3300.3792 umol/L
[2024-07-06 14:24] LABS: Anion Gap 13 (12-20); Blood Urea Nitrogen 29 mg/dL (9-16); Carbon Dioxide 24 mmol/L (22-29); Chloride 106 mmol/L (96-108); Cholesterol 220 mg/dL (<200); Estimated Glomerular Filt Rate 36; Glucose Random 179 mg/dL (60-115); HDL Cholesterol 40 mg/dL (>40); LDL Cholesterol Calculated 116 mg/dL (<100); Potassium 4.4 mmol/L (3.3-5.1); Sodium 139 mmol/L (135-145); Triglycerides 324 mg/dL (<150)
[2024-07-06 14:39] LABS: TSH reflex Free T4 0.45 uIU/mL (0.32-4.0)
== END 2024-07-06 11:03 | disposition home or self-care (01) ==
LOC: HO.WFDLDS 11:02
PROVIDERS: Visit Provider Physician Assistant
DX: E11.22 Type 2 diabetes mellitus with diabetic chronic kidney disease (principal); I12.9 Hypertensive chronic kidney disease with stage 1 through stage 4 chronic kidney disease, or unspecified chronic kidney disease; N18.30 Chronic kidney disease, stage 3 unspecified; E83.52 Hypercalcemia; E89.0 Postprocedural hypothyroidism; E78.5 Hyperlipidemia, unspecified; M25.551 Pain in right hip; M54.50 Low back pain, unspecified
CPT/HCPCS: 36415; 80048; 80061; 83036; 84443; 96127; 99212

== ENCOUNTER 2024-07-13 08:26 | Outpatient (REF) | payer MEDICARE, SELFPAY ==
--- NOTE | ~2024-07-13 | XR_ITS ---
CLINICAL HISTORY: M54.50 - Low back pain, unspecified Exam: AP, lateral, and spot lateral views of the lumbar spine. Comparison: None. Findings: Bony alignment of the lumbar vertebral bodies is anatomic. No fracture. [id number] degenerative disc disease throughout the visualized thoracolumbar spine, especially at the lumbosacral junction. At the lumbosacral junction, there is osteophytic ridging, discogenic sclerosis, and vacuum phenomenon. Moderate to severe degenerative change of the facet joints within the mid to lower lumbar spine. Partial visualization of the left hip arthroplasty. Impression: Multilevel degenerative disc disease and degenerative facet disease as above. This document has been electronically signed by: Alex Chan MD on 07/14/2024 09:13:41
--- NOTE | ~2024-07-13 | XR_ITS ---
CLINICAL HISTORY: M25.551 - Pain in right hip Exam: AP pelvis with AP and frog-leg lateral views of the right hip. Comparison: None. Findings: Severe degenerative change of the right hip joint. There is complete loss of the medial joint space with bulky osteophyte formation. No fracture or erosive change identified. Left hip arthroplasty is identified. Position and alignment of the prosthesis is appropriate. No fracture or abnormal lucency is seen adjacent to the surgical hardware. Mild degenerative change of the sacroiliac joints and pubic symphysis. Impression: Severe right hip DJD. This document has been electronically signed by: Alex Chan MD on 07/14/2024 09:14:00
== END 2024-07-13 08:27 | disposition home or self-care (01) ==
LOC: HO.XRAY 08:26
PROVIDERS: PCP Physician Assistant; Visit Provider Physician Assistant
DX: M54.50 Low back pain, unspecified (principal); M25.551 Pain in right hip
CPT/HCPCS: 72100; 73502

== ENCOUNTER → 2024-07-13 08:31 | Outpatient (BNV) | payer MEDICARE, SELFPAY | PROVIDERS: PCP Physician Assistant; Visit Provider Radiology Diagnostic Radiology | DX: M51.360 Other intervertebral disc degeneration, lumbar region with discogenic back pain only (principal); M16.11 Unilateral primary osteoarthritis, right hip | CPT/HCPCS: 72100; 73502 ==

== ENCOUNTER 2024-10-05 10:03 | Outpatient (AMB) | payer MEDICARE, SELFPAY ==
--- NOTE | 2024-10-05 10:22 | A.OFFPC_ITS ---
Vital Signs 10/05/24 10:24 Height 4 ft 11.65 in BP 130/68 Blood Pressure Location Lt brachial Position Sitting Pulse 72 Pulse Source Pulse Oximeter Pulse Oximetry (%) 99 Oxygen Delivery Method Room Air Intake Visit Reasons: dm Intake Note: Diabetes. 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 Psych: Her daughter, Tita, in December. She was dx with metastatic melanoma and within 2 weeks . She is overall coping and doing better. She does not want to speak with anyone about this and has a good support system. She was her daughter who went everywhere with her. Tita has 3 boys, the youngest is 25. She has 3 other children and 2 of them live very close by and her daughter who is in [place] calls in all the time. She states that she also goes to [employer]. CV: bp today is wnl. She is on amlodipine 2.5 mg and losartan 50 mg Endo: Last calcium level was elevated despite stopping calcium supplements. last tsh was wnl. on levothyroxine 88 mcg. Her dm is managed with ozempic. Tolerating Ozempic well. States that her GI upset resolved once she discontinued the metformin.. Her A1c is 7.3. She does not want to increase her dose. States that she has been eating a lot of Easter candy. Nephro: Follows with Dr. Brito. Musculoskeletal: Feels better with tramadol 1 to 2 times a day. States her neck pain and neuropathy feel better. She follows with [facility] again for her back. She states the right hip is becoming more bothersome. She requests a referral to a doctor in [place]. No urinary symptoms. Ambulates without assistive devices. No numbness, tingling or weakness. [facility] Medical History (Updated 07/06/24 @ 10:35 by Richelle Holcomb PA-C) Vitreous hemorrhage, unspecified eye Hyperglycemia Type 2 diabetes mellitus Postablative hypothyroidism Obesity, Class I, BMI 30-34.9 Mild mitral regurgitation Macular degeneration Lumbar spinal stenosis Lumbar pain with radiation down both legs Hypothyroidism HTN (hypertension) History of nephrolithiasis Dyslipidemia Diabetic neuropathy CKD stage 3 due to type 2 diabetes mellitus Cervical spondylosis Surgical History History of bilateral knee replacement History of colonoscopy Family History Mother Family history of CABG Father Alcoholism Daughter Melanoma Sister Cirrhosis of liver Other Substance use Social History (Updated 07/06/24 @ 10:20 by Tracy Mcintyre CMA) Housing: House Alcohol intake: never Patient Tobacco Use Status: Never used Tobacco e-Cigarette/Vaping Use: Never Used Second Hand Smoke Exposure: No service: No Current occupational status: retired Current occupational exposures/hazards: No Cognitive needs: No Hearing needs: No Vision needs: No Questionnaire Thrive Questionnaire Date Thrive assessed: 07/06/24 I am a: Patient What is your living situation today?: I have a steady place to live Within the past 12 months, did the food you bought not last and you didn't have the money to get more?: Never true Within the past 12 months, did you worry whether your food would run out before you got money to buy more?: Never true Do you have trouble paying for medicines?: No Do you have trouble getting transportation to medical appointments?: No Do you have trouble paying your heating and electricity bill?: No Do you have trouble taking care of your child, family member or friend?: No Do you have trouble with day-to-day activities such as bathing, preparing meals, shopping, managing finances, etc.?: No Are you currently unemployed and looking for a job?: No Are you interested in more education?: No Please select the resources that you would like help with: Utilities Currently or been in a relationship where the following occur: No concerns reported THRIVE Score: 0 AUDIT C Alcohol Use Questionnaire (AUDIT-C) 1. How often do you have a drink containing alcohol?: Never 3. How often do you have six or more drinks on one occasion?: Never Total Score: 0 BRIAN-7 AMB Questionnaire BRIAN-7 Date BRIAN - 7 assessed: 07/06/24 Source: Developed by Drs. Artemio Diaz, Belinda Ding, Christian Godinez and colleagues, with an educational tonia from [employer]. Physical exam (Primary Care) Vital Signs: Last Vital Signs Pulse 72 10/05/24 10:24 BP 130/68 10/05/24 10:24 Pulse Ox 99 10/05/24 10:24 Oxygen Delivery Method Room Air 10/05/24 10:24 Tobacco/Smoking Status: Tobacco use Status Tobacco use date assessed 02/02/24 10/05/24 10:27 Patient Tobacco Use Status Never used Tobacco 10/05/24 10:27 e-Cigarette/Vaping Use Never Used 10/05/24 10:27 Thrive Assessment: Date of Thrive Assessment Date Thrive assessed 07/06/24 10/05/24 10:27 Currently or been in a relationship where the following occur: No concerns reported Const Orientation/consciousness: patient oriented x3 HENMT Ears: hearing grossly normal bilaterally Neck Thyroid: Thyroid normal Lymphatic: no lymphadenopathy noted Resp Auscultation: clear to auscultation bilaterally Cardio Rate: regular rate Rhythm: regular rhythm Heart sounds: S1 normal heart sound present and S2 normal heart sound present GI Inspection: Yes normal to inspection Palpation (GI): Soft to palpation and Other GI palpation findings present (nontender, no cva tenderness) Auscultation: normoactive bowel sounds Rectal Exam - Female: deferred Skin General skin exam: no rashes or lesions noted Neuro General: patient oriented x3, gait normal and no focal motor deficits Results AMB Hemoglobin A1c AMB Hemoglobin A1c 7.3 % Last Edit by Tracy Mcintyre CMA on 10/05/24 10:35 Results Reviewed Results Reviewed: Laboratory Last Values Hgb A1c (Clinic) 7.3 % (4.0-6.0) H 10/05/24 10:34 Coding Level of Care Code Est Pt Level 4 (52584) Complex EM visit Add On G2211 Diagnoses Controlled type 2 diabetes mellitus with stage 3 chronic kidney disease, without long-term current use of insulin E11.22; N18.30 Chronic kidney disease stage: stage 3 (moderate) Diabetes mellitus complication detail: with chronic kidney disease Diabetes mellitus complication status: with kidney complications Diabetes mellitus skilled nursing insulin use: without skilled nursing use Diabetic polyneuropathy associated with type 2 diabetes mellitus E11.42 Diabetes mellitus complication detail: diabetic polyneuropathy Diabetes mellitus type: type 2 Right hip pain M25.551 CKD stage 3 due to type 2 diabetes mellitus E11.22; N18.30 Primary hypertension I10 Hypertension type: primary hypertension Assessment & Plan Assessment & Plan (1) Controlled type 2 diabetes mellitus: Code(s): E11.9 - Type 2 diabetes mellitus without complications Category: Medical Qualifiers: Chronic kidney disease stage: stage 3 (moderate) Diabetes mellitus complication detail: with chronic kidney disease Diabetes mellitus complication status: with kidney complications 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 use: without scoring machine operator use Qualified Code(s): E11.22 - Type 2 diabetes mellitus with diabetic chronic kidney disease; N18.30 - Chronic kidney disease, stage 3 unspecified (2) Diabetic neuropathy: Code(s): E11.40 - Type 2 diabetes mellitus with diabetic neuropathy, unspecified Category: Medical Qualifiers: Diabetes mellitus complication detail: diabetic polyneuropathy Diabetes mellitus type: type 2 Qualified Code(s): E11.42 - Type 2 diabetes mellitus with diabetic polyneuropathy (3) Right hip pain: Code(s): M25.551 - Pain in right hip Category: Medical (4) CKD stage 3 due to type 2 diabetes mellitus: Code(s): E11.22 - Type 2 diabetes mellitus with diabetic chronic kidney disease; N18.30 - Chronic kidney disease, stage 3 unspecified Category: Medical (5) HTN (hypertension): Code(s): I10 - Essential (primary) hypertension Category: Medical Qualifiers: Hypertension type: primary hypertension Qualified Code(s): I10 - Essential (primary) hypertension Plan Discussed increasing Ozempic but currently wants to hold off on this. We will continue current regimen. Labs prior to appointment. Requested referral today to a specific orthopedic surgeon for her right hip for question repair. Orders: Orders AMB Hemoglobin A1c Today E11.22 - Type 2 diabetes mellitus with diabetic chronic kidney disease, N18.30 - Chronic kidney disease, stage 3 unspecified Lipid Panel Today E11.22 - Type 2 diabetes mellitus with diabetic chronic kidney disease, E11.42 - Type 2 diabetes mellitus with diabetic polyneuropathy, I10 - Essential (primary) hypertension, M25.551 - Pain in right hip, N18.30 - Chronic kidney disease, stage 3 unspecified Comprehensive [place]. Panel Fast Today E11.22 - Type 2 diabetes mellitus with diabetic chronic kidney disease, E11.42 - Type 2 diabetes mellitus with diabetic polyneuropathy, I10 - Essential (primary) hypertension, M25.551 - Pain in right hip, N18.30 - Chronic kidney disease, stage 3 unspecified Calcium, Ionized Today E11.22 - Type 2 diabetes mellitus with diabetic chronic kidney disease, E11.42 - Type 2 diabetes mellitus with diabetic polyneuropathy, E83.52 - Hypercalcemia, I10 - Essential (primary) hypertension, M25.551 - Pain in right hip, N18.30 - Chronic kidney disease, stage 3 unspecified Hemoglobin A1c Today E11.22 - Type 2 diabetes mellitus with diabetic chronic kidney disease, E11.42 - Type 2 diabetes mellitus with diabetic polyneuropathy, I10 - Essential (primary) hypertension, M25.551 - Pain in right hip, N18.30 - Chronic kidney disease, stage 3 unspecified, R73.01 - Impaired fasting glucose TSH reflex Free T4 Today E11.22 - Type 2 diabetes mellitus with diabetic chronic kidney disease, E11.42 - Type 2 diabetes mellitus with diabetic rafaela yneuropathy, I10 - Essential (primary) hypertension, M25.551 - Pain in right hip, N18.30 - Chronic kidney disease, stage 3 unspecified Microalbumin, Random (w Creat) Today E11.22 - Type 2 diabetes mellitus with diabetic chronic kidney disease, E11.42 - Type 2 diabetes mellitus with diabetic polyneuropathy, I10 - Essential (primary) hypertension, M25.551 - Pain in right hip, N18.30 - Chronic kidney disease, stage 3 unspecified Referrals Orthopedics Referral M25.551 - Pain in right hip
[2024-10-05 10:24] VITALS: BP 130/68; PULSE 72; O2SAT 99
--- OUTSIDE RECORDS SUMMARY | 2024-10-05 11:50 | XMS_ITS | Clinical Summary ---
Author Organization [facility] Address [address] [place] [address] Phone Care Team Providers Care Solvent Process Extractor Operator Name Role Phone Richelle Holcomb PA-C Primary Care Provider + Allergies Active Allergy Reactions Criticality Noted Date Comments Codeine 03/24/2023 Morphine 03/24/2023 Sulfa Antibiotics 09/23/2018 Mother and sister allergic to this Tizanidine 03/24/2023 Medications * This document contains information received from the source organization and may not represent a complete record from that organization. Calcium Citrate 250 MG tablet Take 250 mg by mouth 1 (one) time each day Active LEVOTHYROXINE SODIUM PO Take 0.88 mcg by mouth 1 (one) time each day Active metFORMIN (GLUCOPHAGE) 500 MG tablet Take 500 mg by mouth in the morning and 500 mg in the evening. Take with meals. 1 tablet in AM and 2 Tablets at night . Active omeprazole (PriLOSEC) [address] capsule Take 20 mg by mouth 1 (one) time each day Do not crush or chew. Active Semaglutide, 1 MG/DOSE, (Ozempic, 1 MG/DOSE,) 2 MG/1.5ML solution pen-injector Inject under the skin Active cyanocobalamin (VITAMIN B-12) 1000 MCG tablet Take 100 mcg by mouth 1 (one) time each day Active Ascorbic Acid (vitamin C) 500 MG tablet Take 500 mg by mouth 1 (one) time each day Active traMADol (ULTRAM) 50 MG tablet TAKE 1 TABLET BY MOUTH EVERY 12 HOURS NEEDED FOR PAIN FOR 30 DAYS Active QUININE SULFATE PO Take 500 mg by mouth in the morning and 500 mg in the evening. 2 tablets at night . Active Multiple Vitamins-Amador als (PRESERVISION AREDS 2 PO) Take by mouth Active acetaminophen (TYLENOL 8 HOUR) 650 MG 8 hr tablet Take 650 mg by mouth every 8 (eight) hours if needed for mild pain Do not crush, chew, or split. Active losartan (Cozaar) 25 MG tablet Take 1 tablet (25 mg total) by mouth 1 (one) time each day 90 tablet 3 4 Active amLODIPine (NORVASC) 2.5 MG tablet TAKE 1 TABLET BY MOUTH 1 TIME EACH DAY. 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 03/24/2023 Dyslipidemia 03/24/2023 History of calculus of kidney 03/24/2023 Essential (primary) hypertension 03/24/2023 Hypothyroidism 03/24/2023 Low back pain 03/24/2023 Macular degeneration 03/24/2023 Mild mitral valve regurgitation 03/24/2023 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 03/24/2023 Body mass index 40+ - severely obese 03/24/2023 Postablative hypothyroidism 03/24/2023 Type 2 diabetes mellitus with hyperglycemia 09/2022 Polymyalgia rheumatica 03/24/2023 Encounters Date Type Department Care Team Description 09/06/2024 Refill [facility] [place] [address] [place] [address] Slim Brito MD from Last 3 Months Social History Tobacco Use Types Packs/Day Years Used Date Smoking Tobacco: Never Smokeless Tobacco: Never Tobacco Cessation:Counseling Given: Not Answered Alcohol Use Standard Drinks/Week Comments Never 0 (1 standard drink = 0.6 oz pur e alcohol) Comments Unknown Sex and Gender Information Value Date Recorded Sex Assigned at Not on file Legal Sex Female 10:20 AM EDT Gender Identity Not on file Sexual Orientation Not on file Last Filed Vital Signs Vital Sign Reading Time Taken Comments Blood Pressure 136/83 04/20/2024 2:09 PM EDT Pulse 86 04/20/2024 2:09 PM EDT Temperature - - Respiratory Rate - - Oxygen Saturation - - Inhaled Oxygen Concentration - - Weight 73.9 kg (163 lb) 04/20/2024 2:09 PM EDT Height - - Body Mass Index - - Plan of Treatment Upcoming Encounters Date Type Department Care Team (Late st Contact Info) Description 04/26/2025 1:30 PM EST Office Visit [facility] [address] [place] [phone] Slim Brito MD [facility] [address] [phone] 04/26/2025 1:45 PM EST Office Visit [facility] [address] [phone] Slim Brito MD [facility] [address] [phone] Health Maintenance Due Date Last Done Comments Pneumococcal Vaccine: 50+ Ye ars (1 of 2 - PCV) 11/03/1964 Diabetes: Hemoglobin A1C 03/24/2023 Diabetes: Ophthalmology Exam 03/24/2023 Diabetes: Pedal Pulse Checked 03/24/2023 Diabetes: Sensory Foot Exam 03/24/2023 Diabetes: Visual Foot Exam 03/24/2023 Influenza Vaccine (Season Ended) 2025 02/28/20 19 Hepatitis B Vaccine Aged Out No longe r eligible based on patient's age to complete this topic Insurance Medicare [facility] Medicare [facility] Care Teams Solvent Process Extractor Operator Relationship Specialty Start Date End Date Richelle Holcomb PA-C [address] [place] [phone] PCP - General Physician Soil Engineer 10/21/22
== END 2024-10-05 10:53 | disposition home or self-care (01) ==
LOC: HO.HMCFM 10:04
PROVIDERS: PCP Physician Assistant; Visit Provider Physician Assistant
DX: E11.22 Type 2 diabetes mellitus with diabetic chronic kidney disease (principal); N18.30 Chronic kidney disease, stage 3 unspecified; E11.42 Type 2 diabetes mellitus with diabetic polyneuropathy; M25.551 Pain in right hip; I10 Essential (primary) hypertension

== ENCOUNTER → 2024-10-05 10:03 | Outpatient (BNVA) | payer MEDICARE, SELFPAY | PROVIDERS: PCP Physician Assistant; Visit Provider Physician Assistant | DX: I12.9 Hypertensive chronic kidney disease with stage 1 through stage 4 chronic kidney disease, or unspecified chronic kidney disease (principal); E11.22 Type 2 diabetes mellitus with diabetic chronic kidney disease; N18.30 Chronic kidney disease, stage 3 unspecified; E11.42 Type 2 diabetes mellitus with diabetic polyneuropathy; M25.551 Pain in right hip | CPT/HCPCS: 83036; 99212 ==

== ENCOUNTER 2024-12-19 07:43 | Outpatient (REF) | payer MEDICARE, SELFPAY ==
--- OUTSIDE RECORDS SUMMARY | 2024-12-19 07:45 | XMS_ITS | Clinical Summary ---
Author Organization [facility] Address [address] [place] [address] Phone Care Team Providers Care Wholesale Diamond Broker Name Role Phone Richelle Holcomb PA-C Primary [...] 2 tablets at night . Active Multiple Vitamins-Minera ls (PRESERVISION AREDS 2 PO) Take by mouth Active acetaminophen (TYLENOL 8 HOUR) 650 MG 8 hr tablet Take 650 mg by mouth every 8 (eight) hours if needed for mild pain Do not crush, chew, or split. Active losartan (Cozaar) 25 MG tablet Take 1 tablet (25 mg total) by mouth 1 (one) time each day 90 tablet 3 04/20/2024 Active amLODIPine (NORVASC) 2.5 MG tablet TAKE 1 TABLET BY MOUTH 1 TIME EACH DAY. 90 tablet 3 09/06/2024 Active Active Problems Problem Noted Date Diagnosed Date [...] mellitus with hyperglycemia 09/2022 Polymyalgia rheumatica 03/24/2023 Social History Tobacco Use Types Packs/Day Years [...] Office Visit [facility] [address] [place] [phone] Slim Brito MD [address] [phone] 04/26/2025 1:45 PM EST Office Visit [facility] [address] [place] [phone] Slim Brito MD [address] [phone] Health Maintenance Due Date Last Done Comments [...] age to complete this topic Insurance Medicare [facility] Medicare [facility] Care Teams Wholesale Diamond Broker Relationship Specialty Start Date End Date Richelle Holcomb PA-C [address] [place] [phone] PCP - General Physician Supervisor Felting 10/21/22
[2024-12-19 11:52] LABS: Hemoglobin A1C 169.4716 umol/L; Total Hemoglobin (HGBA1C) 3224.2004 umol/L
[2024-12-19 12:13] LABS: Microalbum/Creatinine Ratio Ur 54.0 ug/mg cr (<30)
[2024-12-19 12:14] LABS: Alanine Aminotransferase 25 U/L (0-31); Albumin Level 4.2 g/dL (3.5-5.0); Alkaline Phosphatase 59 U/L (39-117); Anion Gap 13 (12-20); Aspartate Amino Transferase 35 U/L (5-31); Blood Urea Nitrogen 23 mg/dL (9-16); Calcium 9.8 mg/dL (8.4-10.2); Carbon Dioxide 25 mmol/L (22-29); Chloride 106 mmol/L (96-108); Cholesterol 216 mg/dL (<200); Estimated Glomerular Filt Rate 33; HDL Cholesterol 41 mg/dL (>40); Magnesium 1.6 mg/dL (1.6-2.6); Potassium 4.3 mmol/L (3.3-5.1); Sodium 140 mmol/L (135-145); Total Protein 7.3 g/dL (6.5-8.0); Triglycerides 242 mg/dL (<150)
[2024-12-20 15:42] LABS: Calcium, Ionized 5.4 mg/dL (4.7-5.5)
== END 2024-12-19 07:44 | disposition home or self-care (01) ==
LOC: HO.WFDLDS 07:43
PROVIDERS: Visit Provider Physician Assistant
DX: E83.52 Hypercalcemia (principal); M25.551 Pain in right hip; E11.42 Type 2 diabetes mellitus with diabetic polyneuropathy; E11.22 Type 2 diabetes mellitus with diabetic chronic kidney disease; N18.30 Chronic kidney disease, stage 3 unspecified; I10 Essential (primary) hypertension; R73.01 Impaired fasting glucose
CPT/HCPCS: 36415; 80053; 80061; 82043; 82306; 82330; 82570; 83036; 83735; 84443

== ENCOUNTER 2025-01-04 08:16 | Outpatient (AMB) | payer MEDICARE, SELFPAY ==
--- OUTSIDE RECORDS SUMMARY | 2025-01-04 08:20 | XMS_ITS | Clinical Summary ---
Author Organization [facility] [place] Address [address] [place] [address] Phone Care Team Providers Care Special Education Resource Teacher Name Role Phone Richelle Holcomb PA-C Primary [...] Office Visit [facility] [address] [place] [phone] Slim Brito MD [address] [phone] 04/26/2025 1:45 PM EST Office Visit [facility] [address] [place] [phone] Slim Brito MD [address] [phone] Health Maintenance Due Date Last Done Comments Pneumococcal Vaccine: 50+ Ye ars (1 of 2 - PCV) 11/03/1964 Diabetes: Hemoglobin A1C 03/24/2023 Diabetes: Ophthalmology Exam 03/24/2023 Diabetes: Pedal Pulse Checked 03/24/2023 Diabetes: Sensory Foot Exam 03/24/2023 Diabetes: Visual Foot Exam 03/24/2023 Influenza Vaccine (#1) 2025 02/27/2019 Hepatitis B Vaccine Aged Out No longe r eligible based on patient's age to complete this topic Insurance Medicare [facility] Medicare [facility] Care Teams Special Education Resource Teacher Relationship Specialty Start Date End Date Richelle Holcomb PA-C [address] [place] [phone] PCP - General Physician It Professional 10/21/22
--- NOTE | 2025-01-04 08:24 | MHC.PC.OV ---
Vital Signs 01/04/25 08:26 Height 4 ft 11.65 in Weight 170 lb 2 oz BMI 33.6 BP 126/72 Blood Pressure Location Rt brachial Position Sitting Respiration 12 Pulse 78 Pulse Source Pulse Oximeter Pulse Oximetry (%) 97 Oxygen Delivery Method Room Air Intake Visit Reasons: labs and dm Intake Note: Diabetes follow up. Air Traffic Control Supervisor Required: No Allergies codeine Allergy (Unknown, Verified 01/04/25 08:24) Nausea morphine Allergy (Unknown, Verified 01/04/25 08:24) Nausea tizanidine Allergy (Unknown, Verified 01/04/25 08:24) dry mouth Medication List - Last Reconciled 01/04/25 by Richelle Holcomb PA-C amlodipine 2.5 mg PO DAILY cholecalciferol (vitamin D3) 25 mcg PO DAILY levothyroxine 88 mcg PO DAILY losartan 25 mg PO DAILY mecobalamin (vitamin B12) 1,000 mcg sublingual DAILY multivitamin 1 tab PO DAILY omeprazole 20 mg PO DAILY [quinine 500 2 tablets daily] semaglutide (Ozempic) 1 mg (0.75 mL) subcut QWEEK tramadol 50 mg PO BID PRN 30 days vitamins A,C,L-hwjs-bsklnx 2,148 mcg-113 mg-45 mg-17.4mg (PreserVision AREDS) 2 tabs PO BID Tobacco use date assessed: 01/04/25 Fall risk assessment: No Falls in past year Last assessed Fall Risk: 01/04/25 Dental Screening Dental Screen Date: 01/04/25 Did you have a dental visit in the last 12 months?: Yes Did you have a dental problem in the last 6 months where you did not have access to dental care?: No Was dental information given to patient?: Patient has dentist HPI labs and dm HPI Details Patient is an 79 year old female with a significant past medical history of hypothyroidism, CKD stage 3, hypertension, 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 Psych: Her daughter, Tita, in December 2023. She was dx with metastatic melanoma and within 2 weeks . She is overall coping and doing better. She does not want to speak with anyone about this and has a good support system. She was her daughter who went everywhere with her. [place] lives in [facility] [place] is local (helps with lawn and finances), Pricila lives out by [place]. She states that she also goes to [facility]. CV: bp today is wnl. She is on amlodipine 2.5 mg and losartan 50 mg Endo: Last calcium level was elevated despite stopping calcium supplements. last tsh was wnl. on levothyroxine 88 mcg. Her dm is managed with ozempic. Tolerating Ozempic well. States that her GI upset resolved once she discontinued the metformin.. Her A1c is 7. Nephro: Follows with Dr. Brito. She is seeing Dr. Brito in March. Uro: follows with urology in the fall for monitoring the stones. She sees Dr. Ceron. GI: Uses omeprazole Musculoskeletal: Feels better with tramadol 1 to 2 times a day. States her neck pain and neuropathy feel better. She follows with [facility] again for her back. She states the right hip is becoming more bothersome. She is seeing an ortho in [place] in February. She has been doing pt for 3 months. She finds PT somewhat helpful. No urinary symptoms. Ambulates without assistive devices. No numbness, tingling or weakness. [facility] Medical History (Updated 01/04/25 @ 08:59 by Richelle Holcomb PA-C) Vitreous hemorrhage, unspecified eye Hyperglycemia Type 2 diabetes mellitus Postablative hypothyroidism Obesity, Class I, BMI 30-34.9 Mild mitral regurgitation Macular degeneration Lumbar spinal stenosis Lumbar pain with radiation down both legs Hypothyroidism HTN (hypertension) History of nephrolithiasis Dyslipidemia Diabetic neuropathy CKD stage 3 due to type 2 diabetes mellitus Cervical spondylosis Surgical History History of bilateral knee replacement History of colonoscopy Family History Mother Family history of CABG Father Alcoholism Daughter Melanoma Sister Cirrhosis of liver Other Substance use Social History (Updated 01/04/25 @ 08:30 by Tracy Mcintyre CMA) Housing: House Alcohol intake: never Patient Tobacco Use Status: Never used Tobacco e-Cigarette/Vaping Use: Never Used Second Hand Smoke Exposure: No service: No Current occupational status: retired Current occupational exposures/hazards: No Cognitive needs: No Hearing needs: No Vision needs: No Questionnaire Thrive Questionnaire Date Thrive assessed: 07/06/24 I am a: Patient What is your living situation today?: I have a steady place to live Within the past 12 months, did the food you bought not last and you didn't have the money to get more?: Never true Within the past 12 months, did you worry whether your food would run out before you got money to buy more?: Never true Do you have trouble paying for medicines?: No Do you have trouble getting transportation to medical appointments?: No Do you have trouble paying your heating and electricity bill?: No Do you have trouble taking care of your child, family member or friend?: No Do you have trouble with day-to-day activities such as bathing, preparing meals, shopping, managing finances, etc.?: No Are you currently unemployed and looking for a job?: No Are you interested in more education?: No Please select the resources that you would like help with: Utilities Currently or been in a relationship where the following occur: No concerns reported THRIVE Score: 0 AUDIT C Alcohol Use Questionnaire (AUDIT-C) 1. How often do you have a drink containing alcohol?: Never 3. How often do you have six or more drinks on one occasion?: Never Total Score: 0 BRIAN-7 AMB Questionnaire BRIAN-7 Date BRIAN - 7 assessed: 07/06/24 Source: Developed by Drs. Artemio Diaz, Belinda Ding, Christian Godinez and colleagues, with an educational tonia from [employer]. Physical exam (Primary Care) Vital Signs: Last Vital Signs Pulse 78 01/04/25 08:26 Resp 12 01/04/25 08:26 BP 126/72 01/04/25 08:26 Pulse Ox 97 01/04/25 08:26 Oxygen Delivery Method Room Air 01/04/25 08:26 BMI result Body Mass Index 33.6 Tobacco/Smoking Status: Tobacco use Status Tobacco use date assessed 01/04/25 01/04/25 08:30 Patient Tobacco Use Status Never used Tobacco 01/04/25 08:30 e-Cigarette/Vaping Use Never Used 01/04/25 08:30 Thrive Assessment: Date of Thrive Assessment Date Thrive assessed 07/06/24 01/04/25 08:30 Currently or been in a relationship where the following occur: No concerns reported Results Reviewed Results Reviewed: Laboratory Tests 04/12/24 12/19/24 12/19/24 07:42 07:44 07:52 Sodium 140 Potassium 4.3 Chloride 106 Carbon Dioxide 25 Anion Gap 13 BUN 23 H Creatinine 1.51 H Estimated GFR 33 Fasting Glucose 130 H Hemoglobin A1c % 7.0 H Calcium 9.8 Ionized Calcium 5.4 Magnesium 1.6 Total Bilirubin 0.4 AST 35 H ALT 25 Alkaline Phosphatase 59 Total Protein 7.3 Albumin 4.2 Triglycerides 242 H Cholesterol 216 H LDL Cholesterol, Calc 127 H HDL Cholesterol 41 25-OH Vitamin D Total 79.9 TSH 1.11 Urine Creatinine 133.60 99.93 Urine Microalbumin 240.0 54.0 Microalb/Creat Ratio 179.6 H 54.0 H Coding Level of Care Code Est Pt Level 4 (81648) Complex EM visit Add On G2211 Diagnoses CKD stage 3 due to type 2 diabetes mellitus E11.22; N18.30 Dyslipidemia E78.5 Primary hypertension I10 Hypertension type: primary hypertension Controlled type 2 diabetes mellitus E11.9 Renal stones N20.0 Lumbar pain M54.50 Assessment & Plan Assessment & Plan (1) CKD stage 3 due to type 2 diabetes mellitus: Code(s): E11.22 - Type 2 diabetes mellitus with diabetic chronic kidney disease; N18.30 - Chronic kidney disease, stage 3 unspecified Category: Medical Plan: I will add Jardiance. We discussed risks and benefits and adverse effects such as yeast infections, UTIs etc.. I will recheck renal function in 2-3 weeks. We will return in 3-4 weeks for recheck. Continue with the Ozempic (2) Dyslipidemia: Code(s): E78.5 - Hyperlipidemia, unspecified Category: Medical Plan: We will monitor. (3) HTN (hypertension): Code(s): I10 - Essential (primary) hypertension Category: Medical Qualifiers: Hypertension type: primary hypertension Qualified Code(s): I10 - Essential (primary) hypertension Plan: WNL. Continue current regimen (4) Controlled type 2 diabetes mellitus: Code(s): E11.9 - Type 2 diabetes mellitus without complications Category: Medical Plan: As listed above (5) Renal stones: Code(s): N20.0 - Calculus of kidney Category: Medical Plan: following with urology. believes last u/s showed no stones (6) Lumbar pain: Code(s): M54.50 - Low back pain, unspecified Category: Medical Plan: well controlled with tramadol Orders: Orders Basic Metabolic Panel Today E11.22 - Type 2 diabetes mellitus with diabetic chronic kidney disease, E78.5 - Hyperlipidemia, unspecified, I10 - Essential (primary) hypertension, N18.30 - Chronic kidney disease, stage 3 unspecified Microalbumin, Random (w Creat) Today E11.22 - Type 2 diabetes mellitus with diabetic chronic kidney disease, E78.5 - Hyperlipidemia, unspecified, I10 - Essential (primary) hypertension, N18.30 - Chronic kidney disease, stage 3 unspecified Medications: New empagliflozin (Jardiance) 10 mg PO QAM 90 tabs 0RF Refilled tramadol 50 mg PO BID PRN 60 tabs 0RF pain 30 days
[2025-01-04 08:26] VITALS: BP 126/72; PULSE 78; RESP 12; O2SAT 97; BMI 33.6
== END 2025-01-04 08:54 | disposition home or self-care (01) ==
LOC: HO.HMCFM 08:17
PROVIDERS: PCP Physician Assistant; Visit Provider Physician Assistant
DX: E11.22 Type 2 diabetes mellitus with diabetic chronic kidney disease (principal); N18.30 Chronic kidney disease, stage 3 unspecified; E78.5 Hyperlipidemia, unspecified; I10 Essential (primary) hypertension; N20.0 Calculus of kidney; M54.50 Low back pain, unspecified

== ENCOUNTER → 2025-01-04 08:16 | Outpatient (BNVA) | payer MEDICARE, SELFPAY | PROVIDERS: PCP Physician Assistant; Visit Provider Physician Assistant | DX: I12.9 Hypertensive chronic kidney disease with stage 1 through stage 4 chronic kidney disease, or unspecified chronic kidney disease (principal); E11.22 Type 2 diabetes mellitus with diabetic chronic kidney disease; N18.30 Chronic kidney disease, stage 3 unspecified; E78.5 Hyperlipidemia, unspecified; N20.0 Calculus of kidney; M54.50 Low back pain, unspecified | CPT/HCPCS: 99212 ==

== ENCOUNTER 2025-01-23 07:48 | Outpatient (REF) | payer MEDICARE, SELFPAY ==
--- OUTSIDE RECORDS SUMMARY | 2025-01-23 07:50 | XMS_ITS | Clinical Summary ---
Author Organization [facility] Address [address] [place] [address] Phone Care Team Providers Care Field Crop Harvest Worker Name Role Phone Richelle Holcomb PA-C Primary [...] Care Team (Late st Contact Info) Description 02/20/2025 Orders Only [facility] [address] [place] [phone] Slim Brito MD [address] [phone] Stage 3a chronic kidney disease (HCC); Hypertensive chronic kidney disease 04/26/2025 1:30 PM EST Office Visit [facility] [address] [place] [phone] Slim Brito MD [address] [phone] 04/26/2025 1:45 PM EST Office Visit [facility] [address] [phone] Slim Brito MD [address] [phone] Health Maintenance Due Date Last [...] age to complete this topic Insurance Medicare [facility] Medicare [facility] Care Teams Field Crop Harvest Worker Relationship Specialty Start Date End Date Richelle Holcomb PA-C [address] [place] [phone] PCP - General Physician Microbiology Professor 10/21/22
--- OUTSIDE RECORDS SUMMARY | 2025-01-23 07:50 | XMS_ITS | Clinical Summary ---
Author Organization [facility] Address [address] [place] [phone] Phone Care Team Providers Care Magnet Placer Name Role Phone Richelle Holcomb Primary Care Provider [phone] Allergies Active Allergy Reactions Criticality Noted Date Comments Codeine Nausea and/or Vomiting 02/02/2018 vomiting Morphine Nausea and/or Vomiting 09/23/2018 Sulfa (Sulfonamide Antibiotics) 09/23/2018 Mother and sister allergic to this Medications losartan (COZAAR) 25 MG tablet 11/28/2017 Active potassium citrate (UROCIT-K) 10 mEq SR tablet Take 10 mEq by mouth 3 (three) times a day with meals. 11/17/2017 Active JANUVIA 100 mg tablet Take 100 mg by mouth daily. 12/11/2017 Active MULTIVITAMIN ORAL Take 1 tablet by mouth daily. Active ergocalciferol, vitamin D2, (VITAMIN D2 ORAL) Take 1 tablet by mouth daily. Active docusate sodium (COLACE) 100 MG capsule Take 100 mg by mouth 2 (two) times a day as needed for constipation . Active CONTOUR NEXT Strp strips CHECK BLOOD GLUCOSE LEVELS TWICE A WEEK 6 08/23/2018 Active ascorbic acid, vitamin C, (VITAMIN C) 500 MG tablet Take 500 mg by mouth daily. Active vitamin E 100 units capsule Take 100 Units by mouth daily. Active traMADol (ULTRAM) 50 mg tablet Take 1 tablets by mouth every 6-8 hours as needed for pain, maximum 400 mg/day. Patient may request partial fill. 15 tablet 11/17/2018 Active levothyroxine (SYNTHROID, LEVOTHROID) 100 MCG tablet 03/24/2019 Active metFORMIN (GLUCOPHAGE) 500 MG tablet 02/27/2019 Activ e cyanocobalamin, vitamin B-12, 100 MCG tablet Take 100 mcg by mouth daily. Active Active Problems Problem Noted Date Diagnosed Date Aftercare following left hip joint replacement s adry 09/28/2018 Primary osteoarthritis of left hip 05/03/2018 Hx of total knee replacement, left 02/02/2018 Overview (02/02/2018): 2003 [place] Left knee pain 12/17/2017 Left hip pain 12/17/2017 Encounters Date Type Department Care Team Description 12/20/2024 9:45 AM EDT Office Visit [address] [address] Gaurav Manriquez MD Robbins, Rebecca, PT Chronic bilateral low back pain, unspecified whether sciatica present (Primary Dx) 12/18/2024 4:00 PM EDT Office Visit [address] [address] Gaurav Manriquez MD Robbins, Rebecca, PT Chronic bilateral low back pain, unspecified whether sciatica present (Primary Dx); Impaired functional mobility, balance, gait, and endurance 12/13/2024 9:45 AM EDT Office Visit [address] [address] Gaurav Manriquez MD Robbins, Rebecca, PT Chronic bilateral low back pain, unspecified whether sciatica present (Primary Dx) 12/11/2024 12:00 PM EDT Office Visit [address] [address] Gaurav Manriquez MD Robbins, Rebecca, PT Chronic bilateral low back pain, unspecified whether sciatica present (Primary Dx) 12/06/2024 8:15 AM EDT Office Visit [address] [address] Gaurav Manriquez MD Robbins, Rebecca, PT Chronic bilateral low back pain, unspecified whether sciatica present (Primary Dx); Impaired functional mobility, balance, gait, and endurance 12/04/2024 12:00 PM EDT Office Visit [address] [address] Gaurav Manriquez MD Robbins, Rebecca, PT Chronic bilateral low back pain, unspecified whether sciatica present (Primary Dx); Impaired functional mobility, balance, gait, and endurance 11/29/2024 8:15 AM EDT Office Visit [address] [address] Gaurav Manriquez MD Robbins, Rebecca, PT Chronic bilateral low back pain, unspecified whether sciatica present (Primary Dx) 11/27/2024 2:30 PM EDT Office Visit [address] [address] Gaurav Manriquez MD Robbins, Rebecca, PT Chronic bilateral low back pain, unspecified whether sciatica present (Primary Dx); Impaired functional mobility, balance, gait, and endurance 11/22/2024 9:00 AM EDT Office Visit [address] [address] Gaurav Manriquez MD Robbins, Rebecca, PT Chronic bilateral low back pain, unspecified whether sciatica present (Primary Dx) 11/01/2024 3:15 PM EDT Office Visit [address] [address] Gaurav Manriquez MD Robbins, Rebecca, PT Chronic bilateral low back pain, unspecified whether sciatica present (Primary Dx); Impaired functional mobility, balance, gait, and endurance 10/27/2024 9:00 AM EDT Office Visit [address] [address] Gaurav Manriquez MD Robbins, Rebecca, PT Chronic bilateral low back pain, unspecified whether sciatica present (Primary Dx) 10/25/2024 8:15 AM EDT Office Visit [address] [address] Gaurav Manriquez MD Robbins, Estee, PT Chronic bilateral low back pain, unspecified whether sciatica present (Primary Dx) from Last 3 Months Immunizations Immunization Administration Dates Next Due Pneumococcal conjugate PCV13 09/29/2018(Deferred : Patient Refused) Family History Medical History Relation Comments No Known Problems Brother Cancer Daughter No Known Problems Father No Known Problems Maternal Aunt No Known Problems Maternal Grandfather No Known Problems Maternal Grandmother No Known Problems Maternal Uncle Infl. arthritis Mother No Known Problems Paternal Aunt No Known Problems Paternal Grandfather No Known Problems Paternal Grandmother No Known Problems Paternal Uncle Diabetes Sister Infl. arthritis Sister Infl. arthritis Unspecified Clotting disorder Neg Hx Collagen disease Neg Hx Depression Neg Hx Dislocations Neg Hx Gout Neg Hx Osteoporosis Neg Hx Scoliosis Neg Hx Relation Status Comments Brother Daughter Father Maternal Aunt Maternal Grandfather Maternal Grandmother Maternal Uncle Mother Paternal Aunt Paternal Grandfather Paternal Grandmother Paternal Uncle Sister Unspecified Social History Tobacco Use Types Packs/Day Years Used Date Smoking Tobacco: Never Smokeless Tobacco: Never Alcohol Use Standard Drinks/Week Comments No 0 (1 standard drink = 0.6 oz pur e alcohol) Education Answer Date Recorded Are you interested in more education? Not on montrell e 10/16/2022 Are you concerned about learning? Not on file 10/16/2022 No 10/16/2022 No 10/16/2022 Digital Access Answer Date Recorded No 11/14/2022 No 11/14/2022 No 11/14/2022 Reliable internet access at home? Not on file 11/14/2022 Device with a working camera? Not on file Comments No Sex and Gender Information Value Date Recorded Sex Assigned at Not on file Legal Sex Female 4:01 PM EDT Gender Identity Not on file Sexual Orientation Not on file Last Filed Vital Signs Vital Sign Reading Time Taken Comments Blood Pressure 126/78 10/13/2018 12:00 PM EDT Pulse 87 10/13/2018 12:00 PM EDT Temperature 36.6 C (97.8 F) 10/13/2018 12:00 PM EDT Respiratory Rate 16 10/01/2018 7:20 AM EDT Oxygen Saturation 97% 10/13/2018 12:00 PM EDT Inhaled Oxygen Concentration - - Weight 78.9 kg (174 lb) 11/10/2018 8:30 AM EDT Height 152.4 cm (5') 10/31/2018 11:04 AM EDT Body Mass Index 33.98 10/31/2018 11:04 AM EDT Plan of Treatment Health Maintenance Due Date Last Done Comments Adult Td,Tdap Booster 1945 TSH LEVEL 1945 DEPRESSION SCREENING 1955 PNEUMOCOCCAL VACCINES (50+ years) (1 of 1 - PCV) 11/03/1993 ZOSTER VACCINES (1 of 2) 11/03/1993 OSTEOPOROSIS SCREENING INITI AL (ONE-TIME) 11/03/2008 RSV VACCINE (1 - 1-dose 75+ series) 11/03/2018 CREATININE LEVEL 09/30/2019 09/29/2018, 09/01/2018 POTASSIUM LEVEL 09/30/2019 09/29/2018, 09/01/2018 COVID-19 VACCINE (3 - 2023-2 5 season) 2024 08/24/2020, 07/27/2020 HEPATITIS A VACCINES Aged Out No long er eligible based on patient's age to complete this topic HIB VACCINES Aged Out No longer eligi ble based on patient's age to complete this topic MENINGOCOCCAL VACCINES (ACWY) Aged Out No longer eligible based on patient's age to complete this topic MENINGOCOCCAL VACCINES (B) Aged Out N o longer eligible based on patient's age to complete this topic Medical Devices Implanted Type Area Agile Scrum Coach Device Identifier Shelf Expiration Date Model / Serial / Lot Bilateral Knee Replacements Permanent Oral Bridges Acetabular Shell 54mm Size F G7 Porous Plasma [employer] Hole - [id number] Implanted:Qty: 1 on 09/28/2018 by Gaurav Hayden MD at [facility] Left: Hip [employer] 07/17/2028 [id number] / / [id number] Screw Dome 6.5x35mm G7 Aceetabular Low Profile Hip - [id number] Implanted:Qty: 1 on 09/28/2018 by Gaurav Hayden MD at [facility] Left: Hip [employer] 07/20/2023 [id number] / / [id number] Acetabular Liner 36 Mmf G7 Polyethylene Arcomxl Neutral - [id number] Implanted:Qty: 1 on 09/28/2018 by Gaurav Hayden MD at [facility] Left: Hip [employer] 07/27/2023 [id number] / / [id number] Hip Stem [id number] 135deg Echo Bimetric Revision Titanium Porous Reduced Proximalimal Profile Neck - [id number] Implanted:Qty: 1 on 09/28/2018 by Gaurav Hayden MD at [facility] Left: Hip [employer] 08/23/2028 [id number] / / [id number] Hip Head 1 36mm Minus 3 Implant Femoral Hd Modular Bailey 05 - [id number] Implanted:Qty: 1 on 09/28/2018 by Gaurav Hayden MD at [facility] Left: Hip [employer] 07/15/[id number] / / [id number] Procedures Procedure Name Priority Date/Time Associated Diagnosis Comments BASIC METABOLIC PANEL Routine 09/29/2018 4:39 AM EDT from Last 3 Months or Most Recently Relevant to Health Maintenance Results * (ABNORMAL) Basic metabolic panel (09/29/2018 4:39 AM EDT) SODIUM 135 133 - 146 mmol/L [facility] CHLORIDE 99 96 - 108 mmol/L [facility] POTASSIUM 4.6 3.3 - 5.1 mmol/L [facility] CO2 23 21 - 35 mmol/L [facility] BUN 19 6 - 19 mg/dL [facility] CREATININE 0.90 0.5 - 1.5 mg/dL [facility] GLUCOSE 189(H) 70 - 99 mg/dL [facility] CALCIUM 8.6 8.4 - 10.3 mg/dL [facility] EGFR 63 >59 mL/min/1.7 3m2 [facility] Comment:If patient is black, multiply result by 1.159. Estimated glomerular filtration rate calculated using the CKD-EPI equation. ANION GAP 18 10 - 20 mmol/L [facility] Blood 09/29/2018 4:39 AM EDT 09/29/2018 5:07 AM EDT Gaurav Hayden MD LAB BLOOD ORDERABLES Final R esult [address] [id number] from Last 3 Months or Most Recently Relevant to Health Maintenance Insurance MEDICARE PART A & B [employer] MEDEX SUPPLEMENT MEDICARE PART A & B [employer] MEDEX SUPPLEMENT MEDICARE PART A & B [employer] MEDEX SUPPLEMENT MEDICARE PART A & B [employer]EX SUPPLEMENT MEDICARE PART A & B [employer] MEDEX SUPPLEMENT [place] MEDICARE PART A & B [employer] MEDEX SUPPLEMENT MEDICARE PART A & B [employer] MEDEX SUPPLEMENT MEDICARE PART A & B [employer] MEDEX SUPPLEMENT MEDICARE PART A & B [employer] MEDEX SUPPLEMENT Advance Directives For more information, please contact: [phone] (9AM - 5PM [facility]athy/[facility], Wednesday-Wednesday) Documents on File Type Date Recorded Patient Spring Former Hand Expl anation Healthcare Proxy 10/03/2018 11:50 AM * Full Code (Presumed) (Latest Code Status on File) Date Activated Date Inactivated Comments 09/28/2018 7:58 PM 10/01/2018 2:50 PM * Full Code (Presumed) Date Activated Date Inactivated Comments 09/28/2018 11:42 AM 09/28/2018 7:58 PM Care Teams Magnet Placer Relationship Specialty Start Date End Date Richelle Holcomb PA [address] [address] PCP - General Physician Pot Washer 08/28/24 Additional Source Comments The information contained in this document represents components of the legal health record. It is not the complete legal health record.[facility]
[2025-01-23 12:09] LABS: Anion Gap 14 (12-20); Blood Urea Nitrogen 29 mg/dL (9-16); Calcium 9.8 mg/dL (8.4-10.2); Carbon Dioxide 25 mmol/L (22-29); Chloride 106 mmol/L (96-108); Estimated Glomerular Filt Rate 29; Potassium 4.1 mmol/L (3.3-5.1); Sodium 141 mmol/L (135-145)
[2025-01-23 12:45] LABS: Microalbum/Creatinine Ratio Ur 29.2 ug/mg cr (<30)
== END 2025-01-23 07:49 | disposition home or self-care (01) ==
LOC: HO.WFDLDS 07:48
PROVIDERS: Visit Provider Physician Assistant
DX: E11.22 Type 2 diabetes mellitus with diabetic chronic kidney disease (principal); I12.9 Hypertensive chronic kidney disease with stage 1 through stage 4 chronic kidney disease, or unspecified chronic kidney disease; N18.30 Chronic kidney disease, stage 3 unspecified; E78.5 Hyperlipidemia, unspecified
CPT/HCPCS: 36415; 80048; 82043; 82570

== ENCOUNTER 2025-02-07 09:21 | Outpatient (AMB) | payer MEDICARE, SELFPAY ==
--- NOTE | 2025-02-07 09:28 | A.OFFPC_ITS ---
Vital Signs 02/07/25 09:31 Height 4 ft 11.65 in Weight 166 lb 2 oz BMI 32.8 BP 136/56 L Blood Pressure Location Rt brachial Position Sitting Respiration 14 Pulse 82 Pulse Source Pulse Oximeter Temp 98 F Temp Source Oral Pulse Oximetry (%) 98 Oxygen Delivery Method Room Air Intake Visit Reasons: med check Intake Note: Medication follow up Csr Retail Required: No Allergies codeine Allergy (Unknown, Verified 02/07/25 09:28) Nausea morphine Allergy (Unknown, Verified 02/07/25 09:28) Nausea tizanidine Allergy (Unknown, Verified 02/07/25 09:28) dry mouth Medication List - Last Reconciled 02/07/25 by Richelle Holcomb PA-C amlodipine 2.5 mg PO DAILY cholecalciferol (vitamin D3) 25 mcg PO DAILY empagliflozin (Jardiance) 10 mg PO QAM levothyroxine 88 mcg PO DAILY losartan 25 mg PO DAILY mecobalamin (vitamin B12) 1,000 mcg sublingual DAILY multivitamin 1 tab PO DAILY omeprazole 20 mg PO DAILY [quinine 500 2 tablets daily] semaglutide (Ozempic) 1 mg (0.75 mL) subcut QWEEK tramadol 50 mg PO BID PRN 30 days vitamins A,C,Q-ntev-quztmt 2,148 mcg-113 mg-45 mg-17.4mg (PreserVision AREDS) 2 tabs PO BID Tobacco use date assessed: 02/07/25 Fall risk assessment: 1 Fall in past year Last assessed Fall Risk: 02/07/25 Dental Screening Dental Screen Date: 01/04/25 HPI med check HPI Details Patient is an 79 year old female with a significant past medical his tory of hypothyroidism, CKD stage 3, hypertension, 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 Psych: Her daughter, Tita, in December 2023. She was dx with metastatic melanoma and within 2 weeks . She is overall coping and doing better. She does not want to speak with anyone about this and has a good support system. She was her daughter who went everywhere with her. Park lives in [place], Reagan is local (helps with lawn and finances), Pricila lives out by [place]. She states that she also goes to orthodox. CV: bp today is wnl. She is on amlodipine 2.5 mg and losartan 25 mg Endo: last tsh was wnl. on levothyroxine 88 mcg. Her dm is managed with ozempic and at our last visit I started her on Jardiance as she has CKD. Tolerating the medications well but states that she probably has not been drinking as much water as she should. Nephro: Follows with Dr. Brito. She is seeing Dr. Brito in March. Uro: follows with urology in the fall for monitoring the stones. She sees Dr. Ceron. GI: Uses omeprazole Musculoskeletal: Feels better with tramadol 1 to 2 times a day. States her neck pain and neuropathy feel better. She follows with [facility] again for her back. She states the right hip is becoming more bothersome. She is seeing an ortho in [place] in February. She has been doing pt for 3 months. She finds PT somewhat helpful. No urinary symptoms. Ambulates without assistive devices. No numbness, tingling or weakness. [facility] Medical History (Updated 01/04/25 @ 08:59 by Richelle Holcomb PA-C) Vitreous hemorrhage, unspecified eye Hyperglycemia Type 2 diabetes mellitus Postablative hypothyroidism Obesity, Class I, BMI 30-34.9 Mild mitral regurgitation Macular degeneration Lumbar spinal stenosis Lumbar pain with radiation down both legs Hypothyroidism HTN (hypertension) History of nephrolithiasis Dyslipidemia Diabetic neuropathy CKD stage 3 due to type 2 diabetes mellitus Cervical spondylosis Surgical History History of bilateral knee replacement History of colonoscopy Family History Mother Family history of CABG Father Alcoholism Daughter Melanoma Sister Cirrhosis of liver Other Substance use Social History (Updated 01/04/25 @ 08:30 by Tracy Mcintyre CMA) Housing: House Alcohol intake: never Patient Tobacco Use Status: Never used Tobacco e-Cigarette/Vaping Use: Never Used Second Hand Smoke Exposure: No service: No Current occupational status: retired Current occupational exposures/hazards: No Cognitive needs: No Hearing needs: No Vision needs: No Questionnaire Thrive Questionnaire Date Thrive assessed: 07/06/24 I am a: Patient What is your living situation today?: I have a steady place to live Within the past 12 months, did the food you bought not last and you didn't have the money to get more?: Never true Within the past 12 months, did you worry whether your food would run out before you got money to buy more?: Never true Do you have trouble paying for medicines?: No Do you have trouble getting transportation to medical appointments?: No Do you have trouble paying your heating and electricity bill?: No Do you have trouble taking care of your child, family member or friend?: No Do you have trouble with day-to-day activities such as bathing, preparing meals, shopping, managing finances, etc.?: No Are you currently unemployed and looking for a job?: No Are you interested in more education?: No Please select the resources that you would like help with: Utilities Currently or been in a relationship where the following occur: No concerns reported THRIVE Score: 0 BRIAN-7 AMB Questionnaire BRIAN-7 Date BRIAN - 7 assessed: 07/06/24 Source: Developed by Drs. Artemio Diaz, Belinda Ding, Christian Godinez and colleagues, with an educational tonia from [employer]. Physical exam (Primary Care) Tobacco/Smoking Status: Tobacco use Status Tobacco use date assessed 01/04/25 02/07/25 09:30 Patient Tobacco Use Status Never used Tobacco 02/07/25 09:30 e-Cigarette/Vaping Use Never Used 02/07/25 09:30 Thrive Assessment: Date of Thrive Assessment Date Thrive assessed 07/06/24 02/07/25 09:30 Currently or been in a relationship where the following occur: No concerns reported Const Orientation/consciousness: patient oriented x3 HENAZ Ears: hearing grossly normal bilaterally Neck Thyroid: Thyroid normal Lymphatic: no lymphadenopathy noted Resp Auscultation: clear to auscultation bilaterally Cardio Rate: regular rate Rhythm: regular rhythm Heart sounds: S1 normal heart sound present and S2 normal heart sound present GI Inspection: Yes normal to inspection Palpation (GI): Soft to palpation and Other GI palpation findings present (nontender, no cva tenderness) Auscultation: normoactive bowel sounds Rectal Exam - Female: deferred Skin General skin exam: no rashes or lesions noted Neuro General: patient oriented x3, gait normal and no focal motor deficits Coding Level of Care Code Est Pt Level 4 (72984) Complex EM visit Add On G2211 Diagnoses CKD stage 3 due to type 2 diabetes mellitus E11.22; N18.30 Primary hypertension I10 Hypertension type: primary hypertension Controlled type 2 diabetes mellitus E11.9 Assessment & Plan Assessment & Plan (1) CKD stage 3 due to type 2 diabetes mellitus: Code(s): E11.22 - Type 2 diabetes mellitus with diabetic chronic kidney disease; N18.30 - Chronic kidney disease, stage 3 unspecified Category: Medical Plan: Recently added Jardiance. We will check labs. (2) HTN (hypertension): Code(s): I10 - Essential (primary) hypertension Category: Medical Qualifiers: Hypertension type: primary hypertension Qualified Code(s): I10 - Essential (primary) hypertension Plan: We will recheck at next visit and if still low end normal we will consider discontinuing amlodipine (3) Controlled type 2 diabetes mellitus: Code(s): E11.9 - Type 2 diabetes mellitus without complications Category: Medical Plan: Monitor labs. Recently out of Jardiance with the Ozempic. Orders: Orders Basic Metabolic Panel Today E11.22 - Type 2 diabetes mellitus with diabetic chronic kidney disease, E78.5 - Hyperlipidemia, unspecified, I10 - Essential (primary) hypertension, N18.30 - Chronic kidney disease, stage 3 unspecified Hemoglobin A1c Today E11.22 - Type 2 diabetes mellitus with diabetic chronic kidney disease, E78.5 - Hyperlipidemia, unspecified, I10 - Essential (primary) hypertension, N18.30 - Chronic kidney disease, stage 3 unspecified, R73.01 - Impaired fasting glucose Complete Blood Count Auto Diff Today E11.22 - Type 2 diabetes mellitus with diabetic chronic kidney disease, E78.5 - Hyperlipidemia, unspecified, I10 - Essential (primary) hypertension, N18.30 - Chronic kidney disease, stage 3 unspecified Liver Panel Today E11.22 - Type 2 diabetes mellitus with diabetic chronic kidney disease, E78.5 - Hyperlipidemia, unspecified, I10 - Essential (primary) hypertension, N18.30 - Chronic kidney disease, stage 3 unspecified
[2025-02-07 09:31] VITALS: BP 136/56; PULSE 82; RESP 14; TEMP 36.6; O2SAT 98; BMI 32.8
--- OUTSIDE RECORDS SUMMARY | 2025-02-07 10:04 | XMS_ITS | Clinical Summary ---
Author Organization [facility] Address [address] [place] [address] Phone Care Team Providers Care Landscape Painter Name Role Phone Richelle Holcomb PA-C Primary [...] Orders Only [facility] [address] [place] [phone] Slim Brito MD [address] [phone] Stage 3a chronic kidney disease (HCC); Hypertensive chronic kidney disease 04/26/2025 1:30 PM EST Office Visit [facility] [address] [place] [phone] Slim Brito MD [address] [phone] 04/26/2025 1:45 PM EST Office Visit [facility] [address] [phone] Slim Brito MD [address] [phone] Health Maintenance Due Date Last [...] age to complete this topic Insurance Medicare [facility] Medicare [facility] Care Teams Landscape Painter Relationship Specialty Start Date End Date Richelle Holcomb PA-C [address] [place] [id number] PCP - General Physician Electronics Maintenance Technician 10/21/22
--- OUTSIDE RECORDS SUMMARY | 2025-02-07 10:04 | XMS_ITS | Clinical Summary ---
Author Organization [facility] Address [address] [place] [address] Phone Care Team Providers Care Brickmason Name Role Phone Richelle Holcomb Primary Care Provider [phone] Allergies Active Allergy Reactions Criticality Noted Date [...] Description 12/20/2024 9:45 AM EDT Office Visit [address] [address] Gaurav Manriquez MD Robbins, Rebecca, PT Chronic bilateral low back pain, unspecified whether sciatica present (Primary Dx) 12/18/2024 4:00 PM EDT Office Visit [address] [address] Gaurav Manriquez MD Robbins, Rebecca, PT Chronic bilateral low back pain, unspecified whether sciatica present (Primary Dx); Impaired functional mobility, balance, gait, and endurance 12/13/2024 9:45 AM EDT Office Visit [address] [address] Gaurav Manriquez MD Robbins, Rebecca, PT Chronic bilateral low back pain, unspecified whether sciatica present (Primary Dx) 12/11/2024 12:00 PM EDT Office Visit [address] [address] Gaurav Manriquez MD Robbins, Rebecca, PT Chronic bilateral low back pain, unspecified whether sciatica present (Primary Dx) 12/06/2024 8:15 AM EDT Office Visit [address] [address] Gaurav Manriquez MD Robbins, Rebecca, PT Chronic bilateral low back pain, unspecified whether sciatica present (Primary Dx); Impaired functional mobility, balance, gait, and endurance 12/04/2024 12:00 PM EDT Office Visit [address] [address] Gaurav Manriquez MD Robbins, Rebecca, PT Chronic bilateral low back pain, unspecified whether sciatica present (Primary Dx); Impaired functional mobility, balance, gait, and endurance 11/29/2024 8:15 AM EDT Office Visit [address] [address] Gaurav Manriquez MD Robbins, Rebecca, PT Chronic bilateral low back pain, unspecified whether sciatica present (Primary Dx) 11/27/2024 2:30 PM EDT Office Visit [address] [address] Gaurav Manriquez MD Robbins, Rebecca, PT Chronic bilateral low back pain, unspecified whether sciatica present (Primary Dx); Impaired functional mobility, balance, gait, and endurance 11/22/2024 9:00 AM EDT Office Visit [address] [address] Gaurav Manriquez MD Robbins, Rebecca, PT Chronic [...] this topic Medical Devices Implanted Type Area Hospice Registered Nurse Device Identifier Shelf Expiration Date Model / Serial / Lot Bilateral Knee Replacements Permanent Oral Bridges Acetabular Shell 54mm Size F G7 Porous Plasma Strong Limited Hole - [id number] Implanted:Qty: 1 on 09/28/2018 by Gaurav Hayden MD at [facility] Left: Hip [employer] 07/17/2028 [id number] / / [id number] Screw Dome 6.5x35mm G7 Aceetabular Low Profile Hip - [id number] Implanted:Qty: 1 on 09/28/2018 by Gaurav Hayden MD at [facility] Left: Hip [employer] 07/20/2023 [id number] / / [id number] Acetabular Liner 36 Mmf G7 Polyethylene Arcomxl Neutral - [id number] Implanted:Qty: 1 on 09/28/2018 by Gaurav Hayden MD at [facility] Left: Hip [employer] 07/27/2023 [id number] / / [id number] Hip Stem [id number] 135deg Echo Bimetric Revision Titanium Porous Reduced Proximalimal Profile Neck - [id number] Implanted:Qty: 1 on 09/28/2018 by Gaurav Hayden MD at [facility] Left: Hip [employer] 08/23/2028 [id number] / / [id number] Hip Head 1 36mm Minus 3 Implant Femoral Hd Modular [place] 05 - [id number] Implanted:Qty: 1 on 09/28/2018 by Gaurav Hayden MD at [facility] Left: Hip [employer] 07/15/2028 [id number] / / [id number] Procedures Procedure Name Priority Date/Time Associated Diagnosis Comments BASIC METABOLIC PANEL Routine 09/29/2018 4:39 AM EDT from Last 3 Months or Most Recently Relevant to Health Maintenance Results * (ABNORMAL) Basic metabolic panel (09/29/2018 4:39 AM EDT) SODIUM 135 133 - 146 mmol/L [facility] CHLORIDE 99 96 - 108 mmol/L [facility] POTASSIUM 4.6 3.3 - 5.1 mmol/L [facility] CO2 23 21 - 35 mmol/L [facility] BUN 19 6 - 19 mg/dL [facility] CREATININE 0.90 0.5 - 1.5 mg/dL [facility] GLUCOSE 189(H) 70 - 99 mg/dL [facility] CALCIUM 8.6 8.4 - 10.3 mg/dL [facility] EGFR 63 >59 mL/min/1.7 3m2 [facility] Comment:If patient is black, multiply result by 1.159. Estimated glomerular filtration rate calculated using the CKD-EPI equation. ANION GAP 18 10 - 20 mmol/L [facility] Blood 09/29/2018 4:39 AM EDT 09/29/2018 5:07 AM EDT us Gaurav Hayden MD LAB BLOOD ORDERABLES Final R esult [facility] [address] [place], [place] [id number] from Last 3 Months or Most Recently Relevant to Health Maintenance Insurance MED[place] PART [place] [id number] [place] MEDEX SUPPLEMENT MEDICARE PART A & B [employer] [place] MEDEX SUPPLEMENT MEDICARE PART A & B [employer] MEDEX SUPPLEMENT MEDICARE PART A & B [employer] MEDEX SUPPLEMENT [place] MEDICARE PART A & B [employer] MEDEX SUPPLEMENT MEDICARE PART A & B [employer] MEDEX SUPPLEMENT MEDICARE PART A & B [employer] MEDEX SUPPLEMENT MEDICARE PART A & B [employer] MEDEX SUPPLEMENT MEDICARE PART A & B Member Subscriber Plan / Payer (Ef fective 2008-Present) Name:Sol Mott Member ID:[id number] Relation to Subscriber:Self Name:Sol Mott Subscriber ID:[id number] Payer ID:[id number] Group ID:Not on file Type:Medicare Address: [facility] [employer] [facility] [address] [address] [employer] MEDEX SUPPLEMENT Advance Directives For more information, please contact: [phone] (9AM - 5PM [facility], Wednesday-Wednesday) Documents on File Type Date Recorded Patient Watermaster Expl anation Healthcare Proxy 10/03/2018 11:50 AM * Full Code (Presumed) (Latest Code Status on File) Date Activated Date Inactivated Comments 09/28/2018 7:58 PM 10/01/2018 2:50 PM * Full Code (Presumed) Date Activated Date Inactivated Comments 09/28/2018 11:42 AM 09/28/2018 7:58 PM Care Teams Brickmason Relationship Specialty Start Date End Date Richelle Holcomb PA [address] [facility] [address] [place] [address] PCP - General Physician Sales Development Consultant 08/28/24 Additional Source Comments The information contained in this document represents components of the legal health record. It is not the complete legal health record.[facility]
== END 2025-02-07 09:55 | disposition home or self-care (01) ==
LOC: HO.HMCFM 09:21
PROVIDERS: PCP Physician Assistant; Visit Provider Physician Assistant
DX: E11.22 Type 2 diabetes mellitus with diabetic chronic kidney disease (principal); N18.30 Chronic kidney disease, stage 3 unspecified; I10 Essential (primary) hypertension

== ENCOUNTER → 2025-02-07 09:21 | Outpatient (BNVA) | payer MEDICARE, SELFPAY | PROVIDERS: PCP Physician Assistant; Visit Provider Physician Assistant | DX: I12.9 Hypertensive chronic kidney disease with stage 1 through stage 4 chronic kidney disease, or unspecified chronic kidney disease (principal); E11.22 Type 2 diabetes mellitus with diabetic chronic kidney disease; N18.30 Chronic kidney disease, stage 3 unspecified; Z79.899 Other long term (current) drug therapy | CPT/HCPCS: 99212 ==

== ENCOUNTER 2025-03-06 07:31 | Outpatient (REF) | payer MEDICARE, SELFPAY ==
--- OUTSIDE RECORDS SUMMARY | 2025-03-06 07:34 | XMS_ITS | Encounter Summary ---
Author Organization [facility] Address [address] [place] [address] Phone Care Team Providers Care Manager Communication Name Role Phone Noel Paul MD Primary Care Provider Marija Muniz MD Primary Care Provider [phone] Richelle Holcomb Primary Care Provider [phone]- [phone] Encounter Details Date Type Department Care Team (Late st Contact Info) Description 05/30/2018 Ancillary Orders [facility] Orthopedics & Sports Medicine [address] [place] [address] Irina Velasquez MD [address] [place] [address] Orthopedics & Sports Medicine, [facility] [place], [place] [id number] [email or web address] Social History Tobacco Use Types Packs/Day Years Used Date Smoking Tobacco: Never Smokeless Tobacco: Never Alcohol Use Standard Drinks/Week Comments No 0 (1 standard drink = 0.6 oz pur e alcohol) Comments Unknown Sex and Gender Information Value Date Recorded Sex Assigned at Not on file Legal Sex Female 4:01 PM EDT Gender Identity Not on file Sexual Orientation Not on file documented as of this encounter Plan of Treatment Not on file documented as of this encounter Visit Diagnoses Not on filedocumented in this encounter Care Teams Manager Communication Relationship Specialty Start Date End Date Noel Paul MD PCP - General Internal Medicine 12/08/17 09/07/18 Marija Schultz MD [address] [place] [address] [email or web address] PCP - General Internal Medicine 09/08/18 08/27/24 Richelle Holcomb PA [address] [place] [address] PCP - General Physician Milanese Knitting Machine Operator 08/28/24 documented as of this encounter Additional Source Comments The information contained in this document represents components of the legal health record. It is not the complete legal health record.[facility]
--- OUTSIDE RECORDS SUMMARY | 2025-03-06 07:34 | XMS_ITS | Encounter Summary ---
Author Organization [facility] Address [address] [place] [address] Phone Care Team Providers Care Sort Line Name Role Phone Noel Paul MD Primary Care Provider Marija Muniz MD Primary Care Provider [phone] Richelle Holcomb Primary Care Provider [phone] Encounter Details Date Type Department Care Team (Late st Contact Info) Description 12/27/2017 Ancillary Orders [facility] Orthopedics & Sports Medicine [address] [place] [address] Irina Velasquez MD [address] [place] [address] Orthopedics & Sports Medicine, [facility]. [place], [place] [id number] [email or web address] Social History Tobacco Use Types Packs/Day Years [...] on filedocumented in this encounter Care Teams Sort Line Relationship Specialty Start Date End Date Noel Paul MD PCP - General Internal Medicine 12/08/17 09/07/18 Marija Schultz MD [address] [place] [address] [email or web address] PCP - General Internal Medicine 09/08/18 08/27/24 Richelle Holcomb PA [address] [place] [address] PCP - General Physician Fitness Management Director 08/28/24 documented as of this encounter Additional Source Comments The information contained in this document represents components of the legal health record. It is not the complete legal health record.[facility]
--- OUTSIDE RECORDS SUMMARY | 2025-03-06 07:34 | XMS_ITS | Clinical Summary ---
Author Organization [facility] Address [address] [place] [address] Phone Care Team Providers Care Newspaper Delivery Driver Name Role Phone Richelle Holcomb PA-C Primary [...] Encounters Date Type Department Care Team Description 02/20/2025 Orders Only [facility] [address] [place] [address] Slim Brito MD Stage 3a chronic kidney disease (HCC); Hypertensive chronic kidney disease from Last 3 Months Social History Tobacco [...] Care Team (Late st Contact Info) Description 03/22/2025 1:30 PM EDT Office Visit [facility] [address] [place] [phone] Slim Brito MD [address] [phone] Health Maintenance Due Date Last Done Comments [...] age to complete this topic Insurance Medicare [facility] Medicare [facility] Care Teams Newspaper Delivery Driver Relationship Specialty Start Date End Date Richelle Holcomb PA-C [address] [place] [address] PCP - General Physician Promotions Director 10/21/22
--- OUTSIDE RECORDS SUMMARY | 2025-03-06 07:34 | XMS_ITS | Encounter Summary ---
Author Organization [facility] Address [address] [place] [address] Phone Care Team Providers Care Corporate Logistics Manager Name Role Phone Noel Paul MD Primary Care Provider Marija Muniz MD Primary Care Provider [phone] Richelle Holcomb Primary Care Provider [phone] Encounter Details Date Type Department Care Team (Late st Contact Info) Description 05/30/2018 Ancillary Orders [address] [address] Irina Velasquez MD [address] [place] [address] Orthopedics & Sports Medicine, [place] [address] [email or web address] Left hip pain Social History Tobacco Use Types Packs/Day Years [...] as of this encounter Plan of Treatment Pending Results Name Type Priority Associated Diagnoses Date /Time FL Guidance Needle Placement Non-Spine Imaging Routine Left hip pain 05/31/2018 2:19 PM EST Scheduled Orders Name Type Priority Associated Diagnoses Orde r Schedule FL Guidance Needle Placement Non-Spine Imaging Routine Left hip pain Expected: 05/30/2018, Expires: 08/29/2019 documented as of this encounter Visit Diagnoses Diagnosis Left hip pain Pain in joint, pelvic region and thigh documented in this encounter Care Teams Corporate Logistics Manager Relationship Specialty Start Date End Date Noel Paul MD PCP - General Internal Medicine 12/08/17 09/07/18 Marija Schultz MD [address] [place] [address] [email or web address] PCP - General Internal Medicine 09/08/18 08/27/24 Richelle Holcomb PA [address] [place] [address] PCP - General Physician Weather Anchor 08/28/24 documented as of this encounter Additional Source Comments The information contained in this document represents components of the legal health record. It is not the complete legal health record.[facility]
--- OUTSIDE RECORDS SUMMARY | 2025-03-06 07:34 | XMS_ITS | Clinical Summary ---
Author Organization [facility] Address [address] [place] [address] Phone Care Team Providers Care Slate Handler Name Role Phone Richelle Holcomb Primary Care Provider [phone] Allergies Active Allergy Reactions Criticality Noted Date [...] Description 12/20/2024 9:45 AM EDT Office Visit [address] [address] Gaurav Manriquez MD Robbins, Rebecca, PT Chronic bilateral low back pain, unspecified whether sciatica present (Primary Dx) 12/18/2024 4:00 PM EDT Office Visit [address] [address] Gaurav Manriquez MD Robbins, Rebecca, PT Chronic bilateral low back pain, unspecified whether sciatica present (Primary Dx); Impaired functional mobility, balance, gait, and endurance 12/13/2024 9:45 AM EDT Office Visit [address] [address] Gaurav Manriquez MD Robbins, Rebecca, PT Chronic bilateral low back pain, unspecified whether sciatica present (Primary Dx) 12/11/2024 12:00 PM EDT Office Visit [address] [address] Gaurav Manriquez MD Robbins, Rebecca, PT Chronic bilateral low back pain, unspecified whether sciatica present (Primary Dx) 12/06/2024 8:15 AM EDT Office Visit [address] [address] Gaurav Manriquez MD Robbins, Rebecca, PT Chronic bilateral low back pain, unspecified whether sciatica present (Primary Dx); Impaired functional mobility, balance, gait, and endurance 12/04/2024 12:00 PM EDT Office Visit [facility] [address] [place] [address] Gaurav Manriquez MD Robbins, Rebecca, PT Chronic bilateral low back pain, unspecified whether sciatica present (Primary Dx); Impaired functional mobility, balance, gait, and endurance from Last 3 Months Immunizations Immunization Administration [...] VACCINES (1 of 2) 11/03/1993 OSTEOPOROSIS SCREENING INITIAL (ONE-TIME) 11/03/2008 RSV VACCINE (1 - 1-dose 75+ series) 11/03/2018 CREATININE LEVEL 09/30/2019 09/29/2018, 09/01/2018 POTASSIUM LEVEL 09/30/2019 09/29/2018, 09/01/2018 INFLUENZA VACCINE (#1) 2025 9, 02/19/2018, 03/03/2017, Additional history exists COVID-19 VACCINE ( season) 2025 08/24/2020, 07/27/2020 HEPATITIS A VACCINES Aged Out [...] this topic Medical Devices Implanted Type Area Senior Software Architect Device Identifier Shelf Expiration Date Model / Serial / Lot Bilateral Knee Replacements Permanent Oral Bridges Acetabular Shell 54mm Size F G7 Porous Plasma [place] [employer] Hole - [id number] Implanted:Qty: 1 on 09/28/2018 by Gaurav Hayden MD at [facility] Left: Hip [employer] 07/17/2028 [id number] / / [id number] Screw Dome 6.5x35mm G7 Aceetabular Low Profile Hip - [id number] Implanted:Qty: 1 on 09/28/2018 by Gaurav Hayden MD at [facility] Left: Hip [employer] 07/20/2023 [id number] / / [id number] Acetabular Liner 36 Mmf G7 Polyethylene Arcomxl Neutral - [id number] Implanted:Qty: 1 on 09/28/2018 by Gaurav Hayden MD at [facility] Left: Hip [employer] 07/27/2023 [id number] / / [id number] Hip Stem [id number] 135deg Echo Bimetric Revision Titanium Porous Reduced Proximalimal Profile Neck - [id number] Implanted:Qty: 1 on 09/28/2018 by Gaurav Hayden MD at [facility] Left: Hip [employer] 08/23/2028 [id number] / / [id number] Hip Head 1 36mm Minus 3 Implant Femoral Hd Modular [place] 05 - [id number] Implanted:Qty: 1 on 09/28/2018 by Gaurav Hayden MD at [facility] Left: Hip [employer] 07/15/2028 [id number] / / [id number] Procedures Procedure Name Priority Date/Time Associated Diagnosis Comments BASIC METABOLIC PANEL Routine 09/29/2018 4:39 AM EDT from Last 3 Months or Most Recently Relevant to Health Maintenance Results * (ABNORMAL) Basic metabolic panel (09/29/2018 4:39 AM EDT) SODIUM 135 133 - 146 mmol/L [facility] CHLORIDE 99 96 - 108 mmol/L [facility] POTASSIUM 4.6 3.3 - 5.1 mmol/L [facility] CO2 23 21 - 35 mmol/L [facility] BUN 19 6 - 19 mg/dL [facility] CREATININE 0.90 0.5 - 1.5 mg/dL [facility] GLUCOSE 189(H) 70 - 99 mg/dL [facility] CALCIUM 8.6 8.4 - 10.3 mg/dL [facility] EGFR 63 >59 mL/min/1.7 3m2 [facility] Comment:If patient is black, multiply result by 1.159. Estimated glomerular filtration rate calculated using the CKD-EPI equation. ANION GAP 18 10 - 20 mmol/L [facility] Blood 09/29/2018 4:39 AM EDT 09/29/2018 5:07 AM EDT Gaurav Hayden MD LAB BLOOD ORDERABLES Final R esult [facility] [address] [place] [address] from Last 3 Months or Most Recently Relevant to Health Maintenance Insurance [place] A [place] [id number] [facility] MEDEX SUPPLEMENT MEDICARE PART A & B [employer] MEDEX SUPPLEMENT MEDICARE PART A & B [employer] MEDEX SUPPLEMENT MEDICARE PART A & B [employer] MEDEX SUPPLEMENT MEDICARE PART A & B [place] [employer] MEDEX SUPPLEMENT [place] MEDICARE PART A & B [employer] MEDEX SUPPLEMENT [facility] [place] MEDICARE PART A & B [employer] MEDEX SUPPLEMENT MEDICARE PART A & B [facility] MEDEX SUPPLEMENT [facility] [place], [place] MEDICARE PART A & B [employer] MED[employer] SUPPLEMENT Advance Directives For more information, please contact: [phone] (9AM - 5PM [facility], Wednesday-Wednesday) Documents on File Type Date Recorded Patient Medical Reception Expl anation Healthcare Proxy 10/03/2018 11:50 AM * Full Code (Presumed) (Latest Code Status on File) Date Activated Date Inactivated Comments 09/28/2018 7:58 PM 10/01/2018 2:50 PM * Full Code (Presumed) Date Activated Date Inactivated Comments 09/28/2018 11:42 AM 09/28/2018 7:58 PM Care Teams Slate Handler Relationship Specialty Start Date End Date Richelle Holcomb PA [address] [place] [address] PCP - General Physician Chief Dispatcher Service 08/28/24 Additional Source Comments The information contained in this document represents components of the legal health record. It is not the complete legal health record.[facility]
--- OUTSIDE RECORDS SUMMARY | 2025-03-06 07:34 | XMS_ITS | Encounter Summary ---
Author Organization [facility] Address [address] [place] [address] Phone Care Team Providers Care Health Technician Name Role Phone Marija Schultz MD Primary Care Provider Richelle Holcomb Primary Care Provider [phone] Encounter Details Date Type Department Care Team (Late st Contact Info) Description 09/28/2018 Procedure Pass [place] Admitting Dept - Virtual Department [address] [place] [address] Social History Tobacco Use Types Packs/Day Years Used Date Smoking Tobacco: Never Smokeless Tobacco: Never Alcohol Use Standard Drinks/Week Comments No 0 (1 standard drink = 0.6 oz pur e alcohol) Comments No Sex and Gender Information Value Date Recorded Sex Assigned at Not on file Legal Sex Female 4:01 PM EDT Gender Identity Not on file Sexual Orientation Not on file documented as of this encounter Plan of Treatment Not on file documented as of this encounter Visit Diagnoses Not on filedocumented in this encounter Care Teams Health Technician Relationship Specialty Start Date End Date Marija Schultz MD [address] [address] [email or web address] PCP - General Internal Medicine 09/08/18 08/27/24 Richelle Holcomb PA [address] [place] [address] PCP - General Physician Web Programmer 08/28/24 documented as of this encounter Additional Source Comments The information contained in this document represents components of the legal health record. It is not the complete legal health record.[facility]
--- OUTSIDE RECORDS SUMMARY | 2025-03-06 07:34 | XMS_ITS | Encounter Summary ---
Author Organization [facility] Address [address] [place] [address] Phone Care Team Providers Care Early Morning Babysitter Name Role Phone Noel Paul MD Primary Care Provider Marija Muniz MD Primary Care Provider [phone] Richelle Holcomb Primary Care Provider [phone] Encounter Details Date Type Department Care Team (Late st Contact Info) Description 12/27/2017 Ancillary Orders [address] [address] Irina Velasquez MD [address] [place] [address] Orthopedics & Sports Medicine, [place] [address] [email or web address] Left hip pain Social History Tobacco Use [...] Placement Non-Spine Imaging Routine Left hip pain 12/28/2017 2:15 PM EDT Scheduled Orders Name Type Priority Associated Diagnoses Orde r Schedule FL Guidance Needle Placement Non-Spine Imaging Routine Left hip pain Expected: 12/27/2017, Expires: 12/27/2018 documented as of this encounter Visit Diagnoses Diagnosis Left hip pain Pain in joint, pelvic region and thigh documented in this encounter Care Teams Early Morning Babysitter Relationship Specialty Start Date End Date Noel Paul MD PCP - General Internal Medicine 12/08/17 09/07/18 Marija Schultz MD [address] [place] [address] [email or web address] PCP - General Internal Medicine 09/08/18 08/27/24 Richelle Holcomb PA [address] [place] [address] PCP - General Physician Pit Worker Power Shovel 08/28/24 documented as of this encounter Additional Source Comments The information contained in this document represents components of the legal health record. It is not the complete legal health record.[facility]
[2025-03-06 11:26] LABS: MANUAL DIFF FLAG NO
[2025-03-06 11:41] LABS: Hematocrit 37.8 % (37.0-47.0); Hemoglobin 12.6 g/dl (12.0-16.0); Imm Gran Abs Auto 0.03 X10*3/uL (0.00-0.03); Imm Gran Pct Auto 0.5 % (0.0-0.4); Lymphocytes Absolute Auto 2.4 X10*3/uL (1.2-4.9); Mean Corpuscular HGB Conc 33.3 g/dl (31.0-35.0); Mean Corpuscular Hemoglobin 28.6 pg (27.0-33.0); Mean Corpuscular Volume 85.9 fL (80.0-98.0); NRBC Abs Auto 0.000 X10*3/uL (0.0-0.012); NRBC Pct Auto 0.0 /100WBC (0.0-0.2); Platelet Count 219 X10*3/uL (160-400); Red Blood Count 4.40 X10*6/uL (4.20-5.50); White Blood Count 5.8 X10*3/uL (4.8-10.8)
[2025-03-06 11:48] LABS: Hemoglobin A1C 171.5969 umol/L; Total Hemoglobin (HGBA1C) 3275.5947 umol/L
[2025-03-06 12:27] LABS: Alanine Aminotransferase 21 U/L (0-31); Albumin Level 4.2 g/dL (3.5-5.0); Alkaline Phosphatase 68 U/L (39-117); Anion Gap 14 (12-20); Aspartate Amino Transferase 31 U/L (5-31); Blood Urea Nitrogen 28 mg/dL (9-16); Calcium 9.7 mg/dL (8.4-10.2); Carbon Dioxide 23 mmol/L (22-29); Chloride 106 mmol/L (96-108); Estimated Glomerular Filt Rate 30; Potassium 3.8 mmol/L (3.3-5.1); Sodium 139 mmol/L (135-145); Total Protein 7.5 g/dL (6.5-8.0)
== END 2025-03-06 07:32 | disposition home or self-care (01) ==
LOC: HO.WFDLDS 07:31
PROVIDERS: Visit Provider Physician Assistant
DX: I12.9 Hypertensive chronic kidney disease with stage 1 through stage 4 chronic kidney disease, or unspecified chronic kidney disease (principal); E11.22 Type 2 diabetes mellitus with diabetic chronic kidney disease; N18.30 Chronic kidney disease, stage 3 unspecified; E78.5 Hyperlipidemia, unspecified
CPT/HCPCS: 36415; 80048; 80076; 83036; 85025

== ENCOUNTER 2025-03-15 10:08 | Outpatient (AMB) | payer MEDICARE, SELFPAY ==
[2025-03-15 10:19] VITALS: BP 136/84; PULSE 58; RESP 14; O2SAT 93; BMI 32.5
--- NOTE | 2025-03-15 10:19 | A.OFFPC_ITS ---
Vital Signs 03/15/25 10:19 Height 4 ft 11.65 in Weight 164 lb 8 oz BMI 32.5 BP 136/84 Blood Pressure Location Rt brachial Position Sitting Respiration 14 Pulse 58 Pulse Source Pulse Oximeter Pulse Oximetry (%) 93 Oxygen Delivery Method Room Air Intake Visit Reasons: dm check, lab check Intake Note: Diabetes follow up Jewelry Store Manager Required: No Allergies codeine Allergy (Unknown, Verified 03/15/25 10:20) Nausea morphine Allergy (Unknown, Verified 03/15/25 10:20) Nausea tizanidine Allergy (Unknown, Verified 03/15/25 10:20) dry mouth Tobacco use date assessed: 03/15/25 Fall risk assessment: No Falls in past year Last assessed Fall Risk: 03/15/25 Dental Screening Dental Screen Date: 01/04/25 HPI dm check, lab check HPI Details Patient is an 79 year old female with a significant past medical history of hypothyroidism, CKD stage 3, hypertension, 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 Psych: Her daughter, Tita, in December 2023. She was dx with metastatic melanoma and within 2 weeks . She is overall coping and doing better. She does not want to speak with anyone about this and has a good support system. She was her daughter who went everywhere with her. Park lives in [place], Reagan is local (helps with lawn and finances), Pricila lives out by [place]. She states that she also goes to congregational. CV: bp today is wnl. She is on amlodipine 2.5 mg and losartan 25 mg Endo: last tsh was wnl. on levothyroxine 88 mcg. Her dm is managed with ozempic and at our last visit I started her on Jardiance as she has CKD. Tolerating the medications well and states that she is trying to increase her fluid intake. Nephro: Follows with Dr. Brito. She is seeing Dr. Brito in March. Uro: follows with urology in the fall for monitoring the stones. She sees Dr. Ceron. GI: Uses omeprazole Musculoskeletal: Feels better with tramadol 1 to 2 times a day. States her neck pain and neuropathy feel better. She follows with [facility] again for her back. She states the right hip is becoming more bothersome. She is seeing an ortho Dr. Cadet in [place] and is scheduled for her surgery at the end of March. She has been doing pt for 3 months. She finds PT somewhat helpful. No urinary symptoms. Ambulates without assistive devices. No numbness, tingling or weakness. [facility] Medical History (Updated 01/04/25 @ 08:59 by Richelle Holcomb PA-C) Vitreous hemorrhage, unspecified eye Hyperglycemia Type 2 diabetes mellitus Postablative hypothyroidism Obesity, Class I, BMI 30-34.9 Mild mitral regurgitation Macular degeneration Lumbar spinal stenosis Lumbar pain with radiation down both legs Hypothyroidism HTN (hypertension) History of nephrolithiasis Dyslipidemia Diabetic neuropathy CKD stage 3 due to type 2 diabetes mellitus Cervical spondylosis Surgical History History of bilateral knee replacement History of colonoscopy Family History Mother Family history of CABG Father Alcoholism Daughter Melanoma Sister Cirrhosis of liver Other Substance use Social History (Updated 02/07/25 @ 09:39 by Tracy Mcintyre CMA) Housing: House Alcohol intake: never Patient Tobacco Use Status: Never used Tobacco e-Cigarette/Vaping Use: Never Used Second Hand Smoke Exposure: No service: No Current occupational status: retired Current occupational exposures/hazards: No Cognitive needs: No Hearing needs: No Vision needs: No Questionnaire Thrive Questionnaire Date Thrive assessed: 07/06/24 I am a: Patient What is your living situation today?: I have a steady place to live Within the past 12 months, did the food you bought not last and you didn't have the money to get more?: Never true Within the past 12 months, did you worry whether your food would run out before you got money to buy more?: Never true Do you have trouble paying for medicines?: No Do you have trouble getting transportation to medical appointments?: No Do you have trouble paying your heating and electricity bill?: No Do you have trouble taking care of your child, family member or friend?: No Do you have trouble with day-to-day activities such as bathing, preparing meals, shopping, managing finances, etc.?: No Are you currently unemployed and looking for a job?: No Are you interested in more education?: No Please select the resources that you would like help with: Utilities Currently or been in a relationship where the following occur: No concerns reported THRIVE Score: 0 AUDIT C Alcohol Use Questionnaire (AUDIT-C) 2. How many drinks containing alcohol do you have on a typical day when you are drinking?: 1 or 2 3. How often do you have six or more drinks on one occasion?: Never Total Score: 0 BRIAN-7 AMB Questionnaire BRIAN-7 Date BRIAN - 7 assessed: 07/06/24 Source: Developed by Drs. Artemio Diaz, Belinda Ding, Christian Godinez and colleagues, with an educational tonia from [employer]. Physical exam (Primary Care) Vital Signs: Last Vital Signs Pulse 58 03/15/25 10:19 Resp 14 03/15/25 10:19 BP 136/84 03/15/25 10:19 Pulse Ox 93 03/15/25 10:19 Oxygen Delivery Method Room Air 03/15/25 10:19 BMI result Body Mass Index 32.5 Tobacco/Smoking Status: Tobacco use Status Tobacco use date assessed 03/15/25 03/15/25 10:26 Patient Tobacco Use Status Never used Tobacco 03/15/25 10:26 e-Cigarette/Vaping Use Never Used 03/15/25 10:26 Thrive Assessment: Date of Thrive Assessment Date Thrive assessed 07/06/24 03/15/25 10:26 Currently or been in a relationship where the following occur: No concerns reported Const Orientation/consciousness: patient oriented x3 HENMT Ears: hearing grossly normal bilaterally Neck Thyroid: Thyroid normal Lymphatic: no lymphadenopathy noted Resp Auscultation: clear to auscultation bilaterally Cardio Rate: regular rate Rhythm: regular rhythm Heart sounds: S1 normal heart sound present and S2 normal heart sound present GI Inspection: Yes normal to inspection Palpation (GI): Soft to palpation and Other GI palpation findings present (nontender, no cva tenderness) Auscultation: normoactive bowel sounds Rectal Exam - Female: deferred Skin General skin exam: no rashes or lesions noted Neuro General: patient oriented x3, gait normal and no focal motor deficits Coding Level of Care Code Est Pt Level 4 (58126) Complex EM visit Add On G2211 Diagnoses Dyslipidemia E78.5 Primary hypertension I10 Hypertension type: primary hypertension Postablative hypothyroidism E89.0 Controlled type 2 diabetes mellitus E11.9 Assessment & Plan Assessment & Plan (1) Dyslipidemia: Code(s): E78.5 - Hyperlipidemia, unspecified Category: Medical Plan: We will monitor (2) HTN (hypertension): Code(s): I10 - Essential (primary) hypertension Category: Medical Qualifiers: Hypertension type: primary hypertension Qualified Code(s): I10 - Essential (primary) hypertension Plan: WNL. Continue current regimen (3) Postablative hypothyroidism: Code(s): E89.0 - Postprocedural hypothyroidism Category: Medical Plan: Continue current regimen. We will monitor (4) Controlled type 2 diabetes mellitus: Code(s): E11.9 - Type 2 diabetes mellitus without complications Category: Medical Plan: A1c has improved. Continue current regimen. Orders: Orders Comprehensive Met. Panel 03/15/25 E11.22 - Type 2 diabetes mellitus with diabetic chronic kidney disease, E78.5 - Hyperlipidemia, unspecified, E89.0 - Postprocedural hypothyroidism, I10 - Essential (primary) hypertension, N18.30 - Chronic kidney disease, stage 3 unspecified Hemoglobin A1c 03/15/25 E11.22 - Type 2 diabetes mellitus with diabetic chronic kidney disease, E78.5 - Hyperlipidemia, unspecified, E89.0 - Postprocedural hypothyroidism, I10 - Essential (primary) hypertension, N18.30 - Chronic kidney disease, stage 3 unspecified, R73.01 - Impaired fasting glucose Complete Blood Count Auto Diff 03/15/25 E11.22 - Type 2 diabetes mellitus with diabetic chronic kidney disease, E78.5 - Hyperlipidemia, unspecified, E89.0 - Postprocedural hypothyroidism, I10 - Essential (primary) hypertension, N18.30 - Chronic kidney disease, stage 3 unspecified TSH reflex Free T4 03/15/25 E11.22 - Type 2 diabetes mellitus with diabetic chronic kidney disease, E78.5 - Hyperlipidemia, unspecified, E89.0 - Postprocedural hypothyroidism, I10 - Essential (primary) hypertension, N18.30 - Chronic kidney disease, stage 3 unspecified
--- OUTSIDE RECORDS SUMMARY | 2025-03-15 12:20 | XMS_ITS | Encounter Summary ---
Author Organization [facility] Address [address] [place] [address] Phone Care Team Providers Care Chief Green Officer Name Role Phone Noel Paul MD Primary Care Provider Marija Muniz MD Primary Care Provider [phone] Richelle Holcomb Primary Care Provider [phone] Encounter Details Date Type Department Care Team (Late st Contact Info) Description 12/27/2017 Ancillary Orders [address] [address] Irina Velasquez MD [address] [place] [address] Orthopedics & Sports Medicine, [place] [address] [email or web address] Left hip pain Social History Tobacco Use [...] thigh documented in this encounter Care Teams Chief Green Officer Relationship Specialty Start Date End Date Noel Paul MD PCP - General Internal Medicine 12/08/17 09/07/18 Marija Schultz MD [address] [place] [address] [email or web address] PCP - General Internal Medicine 09/08/18 08/27/24 Richelle Holcomb PA [address] [place] [address] PCP - General Physician Boat Assembler 08/28/24 documented as of this encounter Additional Source Comments The information contained in this document represents components of the legal health record. It is not the complete legal health record.[facility]
--- OUTSIDE RECORDS SUMMARY | 2025-03-15 12:20 | XMS_ITS | Encounter Summary ---
Author Organization [facility] Address [address] [place] [address] Phone Care Team Providers Care Terminologist Name Role Phone Noel Paul MD Primary Care Provider Marija Muniz MD Primary Care Provider [phone] Richelle Holcomb Primary Care Provider [phone] Encounter Details Date Type Department Care Team (Late st Contact Info) Description 05/30/2018 Ancillary Orders [address] [address] Irina Velasquez MD [address] [place] [address] Orthopedics & Sports Medicine, [place] [address] [email or web address] Left hip pain Social History Tobacco Use [...] thigh documented in this encounter Care Teams Terminologist Relationship Specialty Start Date End Date Noel Paul MD PCP - General Internal Medicine 12/08/17 09/07/18 Marija Schultz MD [address] [place] [address] [email or web address] PCP - General Internal Medicine 09/08/18 08/27/24 Richelle Holcomb PA [address] [place] [address] PCP - General Physician Clothing And Textiles Teacher 08/28/24 documented as of this encounter Additional Source Comments The information contained in this document represents components of the legal health record. It is not the complete legal health record.[facility]
--- OUTSIDE RECORDS SUMMARY | 2025-03-15 12:20 | XMS_ITS | Encounter Summary ---
Author Organization [facility] Address [address] [place] [address] Phone Care Team Providers Care Soil Chemist Name Role Phone Noel Paul MD Primary Care Provider Marija Muniz MD Primary Care Provider [phone] Richelle Holcomb Primary Care Provider [phone] Encounter Details Date Type Department Care Team (Late st Contact Info) Description 12/27/2017 Ancillary Orders [facility] Orthopedics & Sports Medicine [address] [place] [address] Irina Velasquez MD [address] [place] [address] Orthopedics & Sports Medicine, [facility]. [place], [place] [id number] [email or web address] Social History Tobacco Use Types Packs/Day Years [...] on filedocumented in this encounter Care Teams Soil Chemist Relationship Specialty Start Date End Date Noel Paul MD PCP - General Internal Medicine 12/08/17 09/07/18 Marija Schultz MD [address] [place] [address] [email or web address] PCP - General Internal Medicine 09/08/18 08/27/24 Richelle Holcomb PA [address] [place] [address] PCP - General Physician Physician Assistant Surgery 08/28/24 documented as of this encounter Additional Source Comments The information contained in this document represents components of the legal health record. It is not the complete legal health record.[facility]
--- OUTSIDE RECORDS SUMMARY | 2025-03-15 12:20 | XMS_ITS | Clinical Summary ---
Author Organization [facility] Address [address] [place] [address] Phone Care Team Providers Care Door Operator Name Role Phone Richelle Holcomb PA-C [...] Only [facility] [place] [address] [place] [address] Slim Brito MD Stage 3a [...] Office Visit [facility] [address] [place] [phone] Slim Brito MD [address] [phone] Health Maintenance Due Date Last Done Comments [...] age to complete this topic Insurance Medicare [facility] Medicare [facility] Care Teams Door Operator Relationship Specialty Start Date End Date Richelle Holcomb PA-C [address] [place] [address] PCP - General Physician Topstitcher Zigzag 10/21/22
--- OUTSIDE RECORDS SUMMARY | 2025-03-15 12:20 | XMS_ITS | Encounter Summary ---
Author Organization [facility] Address [address] [place] [address] Phone Care Team Providers Care Agronomy Instructor Name Role Phone Noel Paul MD Primary Care Provider Marija Muniz MD Primary Care Provider [phone] Richelle Holcomb Primary Care Provider [phone] Encounter Details Date Type Department Care Team (Late st Contact Info) Description 05/30/2018 Ancillary Orders [facility] Orthopedics & Sports Medicine [address] [place] [address] Irina Velasquez MD [address] [place] [address] Orthopedics & Sports Medicine, [facility] [place], [place] [id number] [email or web address] Social History Tobacco Use Types Packs/Day Years [...] on filedocumented in this encounter Care Teams Agronomy Instructor Relationship Specialty Start Date End Date Noel Paul MD PCP - General Internal Medicine 12/08/17 09/07/18 Marija Schultz MD [address] [place] [address] [email or web address] PCP - General Internal Medicine 09/08/18 08/27/24 Richelle Holcomb PA [address] [place] [address] PCP - General Physician Pourer Crane Ladle 08/28/24 documented as of this encounter Additional Source Comments The information contained in this document represents components of the legal health record. It is not the complete legal health record.[facility]
--- OUTSIDE RECORDS SUMMARY | 2025-03-15 12:20 | XMS_ITS | Encounter Summary ---
Author Organization [facility] Address [address] [place] [address] Phone Care Team Providers Care Railroad Operator Name Role Phone Marija Schultz MD Primary Care Provider Richelle Holcomb Primary Care Provider [phone] Encounter Details Date Type Department Care Team (Late st Contact Info) Description 09/28/2018 Procedure Pass [place] Admitting Dept - Virtual Department [address] [place] [address] Social History Tobacco Use Types Packs/Day Years [...] on filedocumented in this encounter Care Teams Railroad Operator Relationship Specialty Start Date End Date Marija Schultz MD [address] [address] [email or web address] PCP - General Internal Medicine 09/08/18 08/27/24 Richelle Holcomb PA [address] [place] [address] PCP - General Physician Manager Icu 08/28/24 documented as of this encounter Additional Source Comments The information contained in this document represents components of the legal health record. It is not the complete legal health record.[facility]
--- OUTSIDE RECORDS SUMMARY | 2025-03-15 12:20 | XMS_ITS | Clinical Summary ---
Author Organization [facility] Address [address] [place] [address] Phone Care Team Providers Care Medical Social Consultant Name Role Phone Richelle Holcomb Primary Care Provider [phone] Allergies Active Allergy Reactions Criticality Noted Date [...] Description 12/20/2024 9:45 AM EDT Office Visit [address] [address] Gaurav Manriquez MD Robbins, Rebecca, PT Chronic bilateral low back pain, unspecified whether sciatica present (Primary Dx) 12/18/2024 4:00 PM EDT Office Visit [address] [address] Gaurav Manriquez MD Robbins, Rebecca, PT Chronic bilateral low back pain, unspecified whether sciatica present (Primary Dx); Impaired functional mobility, balance, gait, and endurance 12/13/2024 9:45 AM EDT Office Visit [address] [address] Gaurav Manriquez MD Robbins, Rebecca, PT Chronic [...] this topic Medical Devices Implanted Type Area Easement Man Device Identifier Shelf Expiration Date Model / Serial / Lot Bilateral Knee Replacements Permanent Oral Bridges Acetabular Shell 54mm Size F G7 Porous Plasma [employer] Hole - [id number] Implanted:Qty: 1 on 09/28/2018 by Gaurav Hayden MD at [facility] Left: Hip [employer] 07/17/2028 [id number] / / [id number] Screw Dome 6.5x35mm G7 Aceetabular Low Profile Hip - [id number] Implanted:Qty: 1 on 09/28/2018 by Gaurav Hayden MD at [facility] Left: Hip [employer] 07/20/2023 [id number] / / [id number] Acetabular Liner 36 Mmf G7 Polyethylene Arcomxl Neutral - [id number] Implanted:Qty: 1 on 09/28/2018 by Gaurav Hayden MD at [facility] Left: Hip [employer] 07/27/2023 [id number] / / [id number] Hip Stem [id number] 135deg Echo Bimetric Revision Titanium Porous Reduced Proximalimal Profile Neck - [id number] Implanted:Qty: 1 on 09/28/2018 by Gaurav Hayden MD at [facility] Left: Hip [employer] 08/23/2028 [id number] / / [id number] Hip Head 1 36mm Minus 3 Implant Femoral Hd Modular [place] 05 - [id number] Implanted:Qty: 1 on 09/28/2018 by Gaurav Hayden MD at [facility] Left: Hip [employer] 07/15/2028 [id number] / / [id number] Procedures Procedure Name Priority Date/Time Associated Diagnosis Comments BASIC METABOLIC PANEL Routine 09/29/2018 4:39 AM EDT from Last 3 Months or Most Recently Relevant to Health Maintenance Results * (ABNORMAL) Basic metabolic panel (09/29/2018 4:39 AM EDT) SODIUM 135 133 - 146 mmol/L [facility] CHLORIDE 99 96 - 108 mmol/L [facility] POTASSIUM 4.6 3.3 - 5.1 mmol/L [facility] CO2 23 21 - 35 mmol/L [facility] BUN 19 6 - 19 mg/dL [facility] CREATININE 0.90 0.5 - 1.5 mg/dL [facility] GLUCOSE 189(H) 70 - 99 mg/dL [facility] CALCIUM 8.6 8.4 - 10.3 mg/dL [facility] EGFR 63 >59 mL/min/1.7 3m2 [facility] Comment:If patient is black, multiply result by 1.159. Estimated glomerular filtration rate calculated using the CKD-EPI equation. ANION GAP 18 10 - 20 mmol/L [facility] Blood 09/29/2018 4:39 AM EDT 09/29/2018 5:07 AM EDT Gaurav Hayden MD LAB BLOOD ORDERABLES Final R esult [address] [address] from Last 3 Months or Most Recently Relevant to Health Maintenance Insurance MEDICARE PART A & B [employer] SUPPLEMENT [place] [id number] MEDICARE PART A & B E[employer] SOLAR MEDEX SUPPLEMENT [place], [place] MEDICARE PART A & B [employer]MENT MEDICARE PART A & B [employer] SUPPLEMENT Member Subscriber Plan / Payer ( fective 2008-Present) Name:Sol Mott Relation to Subscriber:Self Name:Sol Mott Payer ID:[id number] (NAIC) Type:[facility] Address: [place] [id number] MEDICARE PART A & B EPV SOLAR MEDEX SUPPLEMENT MEDICARE PART A & B EPV SOLAR MEDEX SUPPLEMENT MEDICARE PART A & B EPV SOLAR MEDEX SUPPLEMENT [place]EX SUPPLEMENT MEDICARE PART A & B [employer] SUPPLEMENT Advance Directives For more information, please contact: [phone] (9AM - 5PM Cathy/[facility], Wednesday-Wednesday) Documents on File Type Date Recorded Patient Mixer Diamond Powder Expl anation Healthcare Proxy 10/03/2018 11:50 AM * Full Code (Presumed) (Latest Code Status on File) Date Activated Date Inactivated Comments 09/28/2018 7:58 PM 10/01/2018 2:50 PM * Full Code (Presumed) Date Activated Date Inactivated Comments 09/28/2018 11:42 AM 09/28/2018 7:58 PM Care Teams Medical Social Consultant Relationship Specialty Start Date End Date Richelle Holcomb PA [address] [place] [address] PCP - General Physician It Desktop Support Specialist 08/28/24 Additional Source Comments The information contained in this document represents components of the legal health record. It is not the complete legal health record.[facility]
== END 2025-03-15 10:47 | disposition home or self-care (01) ==
LOC: HO.HMCFM 10:09
PROVIDERS: PCP Physician Assistant; Visit Provider Physician Assistant
DX: E78.5 Hyperlipidemia, unspecified (principal); I10 Essential (primary) hypertension; E89.0 Postprocedural hypothyroidism; E11.9 Type 2 diabetes mellitus without complications

== ENCOUNTER → 2025-03-15 10:08 | Outpatient (BNVA) | payer MEDICARE, SELFPAY | PROVIDERS: PCP Physician Assistant; Visit Provider Physician Assistant | DX: E78.5 Hyperlipidemia, unspecified (principal); E89.0 Postprocedural hypothyroidism; E11.9 Type 2 diabetes mellitus without complications; I10 Essential (primary) hypertension | CPT/HCPCS: 99212 ==

== ENCOUNTER 2025-04-04 07:31 | Outpatient (REF) | payer MEDICARE, SELFPAY ==
--- OUTSIDE RECORDS SUMMARY | 2025-04-04 07:34 | XMS_ITS | Clinical Summary ---
Author Organization [facility] Address [address] [place] [address] Phone Care Team Providers Care Object Oriented Developer Name Role Phone Richelle Holcomb Primary Care Provider [phone] Allergies Active Allergy Reactions Criticality Noted Date [...] Date Aftercare following left hip joint replacement bob rider 09/28/2018 Primary osteoarthritis of left hip 05/03/2018 Hx of total knee replacement, left 02/02/2018 Overview (02/02/2018): 2003 Drinker Left knee pain 12/17/2017 Left hip pain 12/17/2017 Immunizations Immunization Administration Dates Next Due Pneumococcal [...] this topic Medical Devices Implanted Type Area Stock Holder Device Identifier Shelf Expiration Date Model / Serial / Lot Bilateral Knee Replacements Permanent Oral Bridges Acetabular Shell 54mm Size F G7 Porous Plasma [employer] Hole - [id number] Implanted:Qty: 1 on 09/28/2018 by Gaurav Hayden MD at [facility] Left: Hip [employer] 07/17/2028 [id number] / / [id number] Screw Dome 6.5x35mm G7 Aceetabular Low Profile Hip - [id number] Implanted:Qty: 1 on 09/28/2018 by Gaurav Hayden MD at [facility] Left: Hip [employer] 07/20/2023 [id number] / / [id number] Acetabular Liner 36 Mmf G7 Polyethylene Arcomxl Neutral - [id number] Implanted:Qty: 1 on 09/28/2018 by Gaurav Hayden MD at [facility] Left: Hip [employer] 07/27/2023 [id number] / / [id number] Hip Stem [id number] 135deg Echo Bimetric Revision Titanium Porous Reduced Proximalimal Profile Neck - [id number] Implanted:Qty: 1 on 09/28/2018 by Gaurav Hayden MD at [facility] Left: Hip [employer] 08/23/2028 [id number] / / [id number] Hip Head 1 36mm Minus 3 Implant Femoral Hd Modular [place] 05 - [id number] Implanted:Qty: 1 on 09/28/2018 by Gaurav Hayden MD at [facility] Left: Hip [employer] 07/15/2028 [id number] / / [id number] Procedures Procedure Name Priority Date/Time Associated Diagnosis Comments BASIC METABOLIC PANEL Routine 09/29/2018 4:39 AM EDT from Last 3 Months or Most Recently Relevant to Health Maintenance Results * (ABNORMAL) Basic metabolic panel (09/29/2018 4:39 AM EDT) SODIUM 135 133 - 146 mmol/L [facility] CHLORIDE 99 96 - 108 mmol/L [facility] POTASSIUM 4.6 3.3 - 5.1 mmol/L [facility] CO2 23 21 - 35 mmol/L [facility] BUN 19 6 - 19 mg/dL [facility] CREATININE 0.90 0.5 - 1.5 mg/dL [facility] GLUCOSE 189(H) 70 - 99 mg/dL [facility] CALCIUM 8.6 8.4 - 10.3 mg/dL [facility] EGFR 63 >59 mL/min/1.7 3m2 [facility] Comment:If patient is black, multiply result by 1.159. Estimated glomerular filtration rate calculated using the CKD-EPI equation. ANION GAP 18 10 - 20 mmol/L [facility] Blood 09/29/2018 4:39 AM EDT 09/29/2018 5:07 AM EDT us Gaurav Hayden MD LAB BLOOD ORDERABLES Final R esult [facility] [address] [place] [address] from Last 3 Months or Most Recently Relevant to Health Maintenance Insurance MEDICARE PART A & B [employer] MEDEX SUPPLEMENT MEDICARE PART A & B [employer] CROSS MEDEX SUPPLEMENT MEDICARE PART A & B [employer] MEDEX SUPPLEMENT MEDICARE PART A & B [employer] MED[employer] SUPPLEMENT MEDICARE PART A & B [employer] MEDEX SUPPLEMENT MEDICARE PART A & B [employer] MEDEX SUPPLEMENT MEDICARE PART A & B BLUE CROSS MEDEX SUPPLEMENT MEDICARE PART A & B [employer] CROSS MEDEX SUPPLEMENT MEDICARE PART A & B [employer] CROSS MEDEX SUPPLEMENT Advance Directives For more information, please contact: [phone] (9AM - 5PM [facility], Wednesday-Wednesday) Documents on File Type Date Recorded Patient Multicut Line Operator Expl anation Healthcare Proxy 10/03/2018 11:50 AM * Full Code (Presumed) (Latest Code Status on File) Date Activated Date Inactivated Comments 09/28/2018 7:58 PM 10/01/2018 2:50 PM * Full Code (Presumed) Date Activated Date Inactivated Comments 09/28/2018 11:42 AM 09/28/2018 7:58 PM Care Teams Object Oriented Developer Relationship Specialty Start Date End Date Richelle Holcomb PA [address] [place] [address] PCP - General Physician Collection Analyst 08/28/24 Additional Source Comments The information contained in this document represents components of the legal health record. It is not the complete legal health record.[facility]
--- OUTSIDE RECORDS SUMMARY | 2025-04-04 07:35 | XMS_ITS | Encounter Summary ---
Author Organization [facility] Address [address] [place] [address] Phone Care Team Providers Care Sap Bw Consultant Name Role Phone Noel Paul MD Primary Care Provider Marija Muniz MD Primary Care Provider [phone] Richelle Holcomb Primary Care Provider [phone] Encounter Details Date Type Department Care Team (Late st Contact Info) Description 05/30/2018 Ancillary Orders [facility] Orthopedics & Sports Medicine [address] [place] [address] Irina Velasquez MD [address] [place] [address] Orthopedics & Sports Medicine, [facility] [place], [place] [id number] [email or web address] Social History Tobacco Use [...] on filedocumented in this encounter Care Teams Sap Bw Consultant Relationship Specialty Start Date End Date Noel Paul MD PCP - General Internal Medicine 12/08/17 09/07/18 Marija Schultz MD [address] [place] [address] [email or web address] PCP - General Internal Medicine 09/08/18 08/27/24 Richelle Holcomb PA [address] [place] [address] PCP - General Physician Chip Drier 08/28/24 documented as of this encounter Additional Source Comments The information contained in this document represents components of the legal health record. It is not the complete legal health record.[facility]
--- OUTSIDE RECORDS SUMMARY | 2025-04-04 07:35 | XMS_ITS | Encounter Summary ---
Author Organization [facility] Address [address] [place] [address] Phone Care Team Providers Care Radiographer Name Role Phone Noel Paul MD Primary Care Provider Marija Muniz MD Primary Care Provider [phone] Richelle Holcomb Primary Care Provider [phone] Encounter Details Date Type Department Care Team (Late st Contact Info) Description 12/27/2017 Ancillary Orders [address] [address] Irina Velasquez MD [address] [place] [address] Orthopedics & Sports Medicine, [place] [address] [email or web address] Left hip pain Social History Tobacco Use [...] thigh documented in this encounter Care Teams Radiographer Relationship Specialty Start Date End Date Noel Palu MD PCP - General Internal Medicine 12/08/17 09/07/18 Marija Schultz MD [address] [place] [address] [email or web address] PCP - General Internal Medicine 09/08/18 08/27/24 Richelle Holcomb PA [address] [place] [address] PCP - General Physician Value Stream Coach 08/28/24 documented as of this encounter Additional Source Comments The information contained in this document represents components of the legal health record. It is not the complete legal health record.[facility]
--- OUTSIDE RECORDS SUMMARY | 2025-04-04 07:35 | XMS_ITS | Encounter Summary ---
Author Organization [facility] Address [address] [place] [address] Phone Care Team Providers Care Uat Tester Name Role Phone Noel Paul MD Primary Care Provider Marija Muniz MD Primary Care Provider [phone] Richelle Holcomb Primary Care Provider [phone] Encounter Details Date Type Department Care Team (Late st Contact Info) Description 12/27/2017 Ancillary Orders [facility] Orthopedics & Sports Medicine [address] [place] [address] Irina Velasquez MD [address] [place] [address] Orthopedics & Sports Medicine, [facility] [place], [place] [id number] [email or web address] Social History Tobacco Use Types Packs/Day Years [...] on filedocumented in this encounter Care Teams Uat Tester Relationship Specialty Start Date End Date Noel Paul MD PCP - General Internal Medicine 12/08/17 09/07/18 Marija Schultz MD [address] [place] [address] [email or web address] PCP - General Internal Medicine 09/08/18 08/27/24 Richelle Holcomb PA [address] [place] [address] PCP - General Physician Sod Stripper 08/28/24 documented as of this encounter Additional Source Comments The information contained in this document represents components of the legal health record. It is not the complete legal health record.[facility]
--- OUTSIDE RECORDS SUMMARY | 2025-04-04 07:35 | XMS_ITS | Clinical Summary ---
Author Organization [facility] Address [address] [place] [address] Phone Care Team Providers Care Welfare Director Name Role Phone Richelle Holcomb PA-C Primary [...] 2 tablets at night . Active Multiple Vitamins-Personalization Specialist als (PRESERVISION AREDS 2 PO) Take by mouth Active acetaminophen (TYLENOL 8 HOUR) 650 MG 8 hr tablet Take 650 mg by mouth every 8 (eight) hours if needed for mild pain Do not crush, chew, or split. Active Empagliflozin (Jardiance) 10 MG tablet Take 10 mg by mouth 1 (one) time each day in the morning Active amLODIPine (NORVASC) 5 MG tablet Take 1 tablet (5 mg total) by mouth 1 (one) time each day 90 tablet 3 5 03/22/20 26 Active losartan (Cozaar) 25 MG tablet Take 1 tablet (25 mg total) by mouth 1 (one) time each day 90 tablet 3 4 03/22/20 25 Discontinued amLODIPine (NORVASC) 2.5 MG tablet TAKE 1 TABLET BY MOUTH 1 TIME EACH DAY. 90 tablet 3 5 03/22/20 25 Discontinued Active Problems Problem Noted Date [...] Encounters Date Type Department Care Team Description 03/22/2025 1:30 PM EDT Office Visit [facility] [address] [address] Slim Brito MD Other acute kidney failure (HCC) (Primary Dx); Stage 3b chronic kidney disease (HCC); Hypertensive chronic kidney disease 02/20/2025 Orders Only [facility] [address] [place] [id number] Slim Brito MD Stage 3a chronic kidney [...] Sign Reading Time Taken Comments Blood Pressure 132/72 03/22/2025 1:24 PM EDT Pulse 73 03/22/2025 1:24 PM EDT Temperature - - Respiratory Rate - - Oxygen Saturation - - Inhaled Oxygen Concentration - - Weight 74.4 kg (164 lb) 03/22/2025 1:24 PM EDT Height - - Body Mass Index - - Plan of Treatment Upcoming Encounters Date Type Department Care Team (Late st Contact Info) Description 07/26/2025 1:00 PM EST Office Visit [facility] [address] [place] [phone] Slim Brito MD [address] [phone] Health Maintenance Due Date Last Done Comments Pneumococcal Vaccine: 50+ Ye ars (1 of 2 - PCV) 11/03/1964 Diabetes: Hemoglobin A1C 03/24/2023 Diabetes: Ophthalmology Exam 03/24/2023 Diabetes: Pedal Pulse Checked 03/24/2023 Diabetes: Sensory Foot Exam 03/24/2023 Diabetes: Visual Foot Exam 03/24/2023 Influenza Vaccine (#1) 2025 02/27/2019 Hepatitis B Vaccine Aged Out No longe r eligible based on patient's age to complete this topic Procedures Procedure Name Priority Date/Time Associated Diagnosis Comments PROTEIN / CREATININE RATIO, URINE Routine 03/16/2025 7:37 AM EDT Stage 3a chronic kidney disease (HCC) Hypertensive chronic kidney disease VITAMIN D 25 HYDROXY Routine 03/16/2025 7:37 AM EDT Stage 3a chronic kidney disease (HCC) Hypertensive chronic kidney disease RENAL FUNCTION PANEL Routine 03/16/2025 7:37 AM EDT Stage 3a chronic kidney disease (HCC) Hypertensive chronic kidney disease PTH, INTACT Routine 03/16/2025 7:37 AM EDT Stage 3a chronic kidney disease (HCC) Hypertensive chronic kidney disease from Last 3 Months Results * (ABNORMAL) Urine Protein / creatinine ratio (03/16/2025 7:37 AM EDT) Creatinine, Ur 112.2 Not Estab. mg/dL [facility] Protein, Ur 23.7 Not Estab. mg/dL [facility] Urine Protein/Creati nine Ratio 211(H) 0 - 200 mg/g creat [facility] Urine specimen (specimen) Urine specimen obtained by clean catch procedure / Unknown 03/16/2025 7:37 AM EDT 03/16/2025 us Slim Brito MD LAB URINE ORDERABLES Final Resu lt LABAgilvaxRP [facility] [address] [place] [address] * Vitamin D 25 hydroxy (03/16/2025 7:37 AM EDT) Vitamin D, 25-OH, Total 31.9 30.0 - 100.0 ng/mL [facility] Comment: Vitamin D deficiency has been defined by the [place] of Medicine and an Endocrine Society practice guideline as a level of serum 25-OH vitamin D less than 20 ng/mL (1,2). The Endocrine Society went on to further define vitamin D insufficiency as a level between 21 and 29 ng/mL (2). 1. IOM ([place] of Medicine). 2010. Dietary reference intakes for calcium and D. [place]: The National Academies Press. 2. Jorge MF, Priscilla NC, Isaac NUÑEZ, et al. Evaluation, treatment, and prevention of vitamin D deficiency: an Endocrine Society clinical practice guideline. JCEM. 2010; 96(7):1911-30. Blood specimen (specimen) Venous blood / Unknown 03/16/2025 7:37 AM EDT 03/16/2025 Slim Brito MD LAB BLOOD ORDERABLES Final Resu lt Performing Organization Address City/[facility]/ZIP Co de Phone Number [facility] [address] [place] [address] * PTH, intact (03/16/2025 7:37 AM EDT) PTH 26 15 - 65 pg/mL [facility] Blood specimen (specimen) Venous blood / Unknown 03/16/2025 7:37 AM EDT 03/16/2025 Slim Brito MD LAB BLOOD ORDERABLES Final Resu lt Performing Organization Address City/[facility]/ZIP Co de Phone Number [facility] [address] [place] [address] * (ABNORMAL) Renal function panel (03/16/2025 7:37 AM EDT) Glucose 140(H) 70 - 99 mg/dL [facility] BUN 34(H) 8 - 27 mg/dL [facility] Creatinine 1.62(H) 0.57 - 1.00 mg/dL [facility] eGFR CKD-EPI CR 2020 32(L) >59 mL/min/1.7 3 [facility] BUN/Creatinine Ratio 21 12 - 28 [facility] Sodium 137 134 - 144 mmol/L [facility] Potassium 3.8 3.5 - 5.2 mmol/L [facility] Chloride 103 96 - 106 mmol/L [facility] Bicarbonate (CO2) 19(L) 20 - 29 mmol/L [facility] Calcium 9.9 8.7 - 10.3 mg/dL [facility] Albumin 4.5 3.7 - 4.7 g/dL [facility] Phosphorus 3.5 3.0 - 4.3 mg/dL [facility] Blood specimen (specimen) Venous blood / Unknown 03/16/2025 7:37 AM EDT 03/16/2025 Slim Brito MD LAB BLOOD ORDERABLES Final Resu lt [facility] [address] [place] [address] from Last [address] [facility] Medicare [facility] Care Teams Welfare Director Relationship Specialty Start Date End Date Richelle Holcomb PA-C [address] [place] [address] PCP - General Physician Camera Storage Clerk 10/21/22
--- OUTSIDE RECORDS SUMMARY | 2025-04-04 07:35 | XMS_ITS | Encounter Summary ---
Author Organization [facility] Address [address] [place] [address] Phone Care Team Providers Care Senior Compensation Consultant Name Role Phone Noel Paul MD Primary Care Provider Marija Muniz MD Primary Care Provider [phone] Richelle Holcomb Primary Care Provider [phone] Encounter Details Date Type Department Care Team (Late st Contact Info) Description 05/30/2018 Ancillary Orders [address] [address] Irina Velasquez MD [address] [place] [address] Orthopedics & Sports Medicine, [place] [address] [email or web address] Left hip pain Social History Tobacco Use [...] thigh documented in this encounter Care Teams Senior Compensation Consultant Relationship Specialty Start Date End Date Noel Paul MD PCP - General Internal Medicine 12/08/17 09/07/18 Marija Schultz MD [address] [place] [address] [email or web address] PCP - General Internal Medicine 09/08/18 08/27/24 Richelle Holcomb PA [address] [place] [address] PCP - General Physician Electronics Technician Apprentice 08/28/24 documented as of this encounter Additional Source Comments The information contained in this document represents components of the legal health record. It is not the complete legal health record.[facility]
--- OUTSIDE RECORDS SUMMARY | 2025-04-04 07:35 | XMS_ITS | Encounter Summary ---
Author Organization [facility] Address [address] [place] [address] Phone Care Team Providers Care Cylinder Filler Name Role Phone Marija Schultz MD Primary Care Provider [phone] Richelle Holcomb Primary Care Provider [phone] Encounter Details Date Type Department Care Team (Late st Contact Info) Description 09/28/2018 Procedure Pass OR Admitting Dept - Virtual Department [address] [place] [address] Social History Tobacco Use Types Packs/Day Years [...] on filedocumented in this encounter Care Teams Cylinder Filler Relationship Specialty Start Date End Date Marija Schultz MD [address] [address] [email or web address] PCP - General Internal Medicine 09/08/18 08/27/24 Richelle Holcomb PA [address] [place] [address] PCP - General Physician Coloring Room Man 08/28/24 documented as of this encounter Additional Source Comments The information contained in this document represents components of the legal health record. It is not the complete legal health record.[facility]
[2025-04-04 11:07] LABS: MANUAL DIFF FLAG NO
[2025-04-04 11:24] LABS: Hematocrit 38.3 % (37.0-47.0); Hemoglobin 12.7 g/dl (12.0-16.0); Imm Gran Abs Auto 0.01 X10*3/uL (0.00-0.03); Imm Gran Pct Auto 0.2 % (0.0-0.4); Lymphocytes Absolute Auto 2.2 X10*3/uL (1.2-4.9); Mean Corpuscular HGB Conc 33.2 g/dl (31.0-35.0); Mean Corpuscular Hemoglobin 28.2 pg (27.0-33.0); Mean Corpuscular Volume 85.1 fL (80.0-98.0); NRBC Abs Auto 0.020 X10*3/uL (0.0-0.012); NRBC Pct Auto 0.3 /100WBC (0.0-0.2); Platelet Count 256 X10*3/uL (160-400); Red Blood Count 4.50 X10*6/uL (4.20-5.50); White Blood Count 6.1 X10*3/uL (4.8-10.8)
[2025-04-04 11:55] LABS: Alanine Aminotransferase 23 U/L (0-31); Albumin Level 4.3 g/dL (3.5-5.0); Alkaline Phosphatase 64 U/L (39-117); Anion Gap 12 (12-20); Aspartate Amino Transferase 31 U/L (5-31); Blood Urea Nitrogen 25 mg/dL (9-16); Calcium 9.7 mg/dL (8.4-10.2); Carbon Dioxide 24 mmol/L (22-29); Chloride 108 mmol/L (96-108); Estimated Glomerular Filt Rate 32; Potassium 3.4 mmol/L (3.3-5.1); Sodium 141 mmol/L (135-145); Total Protein 7.6 g/dL (6.5-8.0)
== END 2025-04-04 07:32 | disposition home or self-care (01) ==
LOC: HO.WFDLDS 07:31
PROVIDERS: Visit Provider Physician Assistant
DX: I12.9 Hypertensive chronic kidney disease with stage 1 through stage 4 chronic kidney disease, or unspecified chronic kidney disease (principal); E11.22 Type 2 diabetes mellitus with diabetic chronic kidney disease; N18.30 Chronic kidney disease, stage 3 unspecified; E78.5 Hyperlipidemia, unspecified; E89.0 Postprocedural hypothyroidism; Z13.29 Encounter for screening for other suspected endocrine disorder
CPT/HCPCS: 36415; 80053; 83036; 84443; 85025

== ENCOUNTER 2025-04-12 10:53 | Outpatient (AMB) | payer MEDICARE, SELFPAY ==
--- NOTE | 2025-04-12 10:59 | A.OFFPC_ITS ---
Vital Signs 04/12/25 11:11 Height 4 ft 11.65 in Weight 160 lb 4 oz BMI 31.7 BP 134/72 Blood Pressure Location Lt brachial Position Sitting Respiration 16 Pulse 76 Pulse Source Pulse Oximeter Temp 97.7 F Temp Source Oral Pulse Oximetry (%) 97 Oxygen Delivery Method Room Air Intake Visit Reasons: Right hip replacement on 04/16/2025 Intake Note: right hip replacement Unemployment Benefits Claims Taker Required: No Allergies codeine Allergy (Unknown, Verified 04/12/25 11:08) Nausea morphine Allergy (Unknown, Verified 04/12/25 11:08) Nausea tizanidine Allergy (Unknown, Verified 04/12/25 11:08) dry mouth Tobacco use date assessed: 04/12/25 Fall risk assessment: No Falls in past year Last assessed Fall Risk: 04/12/25 Dental Screening Dental Screen Date: 04/12/25 Did you have a dental visit in the last 12 months?: Yes Did you have a dental problem in the last 6 months where you did not have access to dental care?: Yes Was dental information given to patient?: Patient has dentist HPI Right hip replacement on 04/16/2025 HPI Details Patient is an 79 year old female with a significant past medical history of hypothyroidism, CKD stage 3, hypertension, controlled type 2 diabetes with kidney disease, peripheral neuropathy, kideny stones presenting today for a preop. She is having her right hip replaced by Dr. Cadet on 04/16/25. She states that she is excited about this. -she denies any chest pain or shortness on breath. She feels well. States that she is able to walk up a flight of stairs without difficulty. She denies any previous issues with anesthesia. She did require a blood transfusion after her last hip replacement. She says that the surgeon is aware of this. She says that she has never had issues with bruising, bleeding or known clotting issues. She has had other procedures without difficulty. CV: bp today is wnl. She is on amlodipine 2.5 mg and losartan 25 mg Endo: last tsh was wnl. on levothyroxine 88 mcg. Her dm is managed with ozempic and Jardiance. Most recent A1c is 6.6. Kidney function slightly improved. Nephro: Follows with Dr. Brito. She saw him last week. Uro: follows with urology in the fall for monitoring the stones. She sees Dr. Ceron. GI: Uses omeprazole PFSH Medical History (Updated 04/12/25 @ 11:31 by Richelle Holcomb PA-C) Vitreous hemorrhage, unspecified eye Hyperglycemia Type 2 diabetes mellitus Postablative hypothyroidism Obesity, Class I, BMI 30-34.9 Mild mitral regurgitation Macular degeneration Lumbar spinal stenosis Lumbar pain with radiation down both legs Hypothyroidism HTN (hypertension) History of nephrolithiasis Dyslipidemia Diabetic neuropathy CKD stage 3 due to type 2 diabetes mellitus Cervical spondylosis Surgical History History of bilateral knee replacement History of colonoscopy Family History Mother Family history of CABG Father Alcoholism Daughter Melanoma Sister Cirrhosis of liver Other Substance use Social History (Updated 04/12/25 @ 11:11 by Harrison Tsai MA) Housing: House Alcohol intake: never Patient Tobacco Use Status: Never used Tobacco e-Cigarette/Vaping Use: Never Used Second Hand Smoke Exposure: No service: No Current occupational status: retired Current occupational exposures/hazards: No Cognitive needs: No Hearing needs: No Vision needs: No Questionnaire Thrive Questionnaire Date Thrive assessed: 07/06/24 I am a: Patient What is your living situation today?: I have a steady place to live Within the past 12 months, did the food you bought not last and you didn't have the money to get more?: Never true Within the past 12 months, did you worry whether your food would run out before you got money to buy more?: Never true Do you have trouble paying for medicines?: No Do you have trouble getting transportation to medical appointments?: No Do you have trouble paying your heating and electricity bill?: No Do you have trouble taking care of your child, family member or friend?: No Do you have trouble with day-to-day activities such as bathing, preparing meals, shopping, managing finances, etc.?: No Are you currently unemployed and looking for a job?: No Are you interested in more education?: No Please select the resources that you would like help with: Utilities Currently or been in a relationship where the following occur: No concerns reported THRIVE Score: 0 BRIAN-7 AMB Questionnaire BRIAN-7 Date BRIAN - 7 assessed: 07/06/24 Source: Developed by Drs. Artemio Diaz, Belinda Ding, Christian Godinez and colleagues, with an educational tonia from [employer] Physical exam (Primary Care) Vital Signs: Last Vital Signs Temp 97.7 F 04/12/25 11:11 Pulse 76 04/12/25 11:11 Resp 16 04/12/25 11:11 BP 134/72 04/12/25 11:11 Pulse Ox 97 04/12/25 11:11 Oxygen Delivery Method Room Air 04/12/25 11:11 BMI result Body Mass Index 31.7 Tobacco/Smoking Status: Tobacco use Status Tobacco use date assessed 04/12/25 04/12/25 11:13 Patient Tobacco Use Status Never used Tobacco 04/12/25 11:11 e-Cigarette/Vaping Use Never Used 04/12/25 11:11 Thrive Assessment: Date of Thrive Assessment Date Thrive assessed 07/06/24 04/12/25 10:59 Currently or been in a relationship where the following occur: No concerns reported Const Orientation/consciousness: patient oriented x3 HENMT Ears: hearing grossly normal bilaterally Neck Thyroid: Thyroid normal Lymphatic: no lymphadenopathy noted Resp Auscultation: clear to auscultation bilaterally Cardio Rate: regular rate Rhythm: regular rhythm Heart sounds: S1 normal heart sound present and S2 normal heart sound present GI Inspection: Yes normal to inspection Palpation (GI): Soft to palpation and Other GI palpation findings present (nontender, no cva tenderness) Auscultation: normoactive bowel sounds Rectal Exam - Female: deferred Skin General skin exam: no rashes or lesions noted Neuro General: patient oriented x3, gait normal and no focal motor deficits Office Procedures EKG Details: EKG today in the office is sinus rhythm at a rate of [address] t wave abnormalities. ekg interpretted by myself and dr weldon. ?lvh 56457-Iectxaqumjjmnsjwe, Complete Results Reviewed Results Reviewed: Laboratory Tests 04/04/25 07:33 WBC 6.1 RBC 4.50 Hgb 12.7 Hct 38.3 Plt Count 256 Sodium 141 Potassium 3.4 Chloride 108 Carbon Dioxide 24 Anion Gap 12 BUN 25 H Creatinine 1.55 H Estimated GFR 32 Random Glucose 123 H Hemoglobin A1c % 6.6 H Calcium 9.7 Total Bilirubin 0.4 AST 31 ALT 23 Alkaline Phosphatase 64 Total Protein 7.6 Albumin 4.3 TSH 0.45 Coding Level of Care Code Est Pt Level 4 (36233) Complex EM visit Add On G2211 Diagnoses Pre-op evaluation Z01.818 CKD stage 3 due to type 2 diabetes mellitus E11.22; N18.30 Controlled type 2 diabetes mellitus with stage 3 chronic kidney disease, without long-term current use of insulin E11.22; N18.30 Chronic kidney disease stage: stage 3 (moderate) Diabetes mellitus complication detail: with chronic kidney disease Diabetes mellitus complication status: with kidney complications Diabetes mellitus rn long term care insulin use: without group home use Primary hypertension I10 Hypertension type: primary hypertension Dyslipidemia E78.5 Right hip pain M25.551 CPT Codes EKG - CPT: 01149-Zboqxlburevkpyvwc, Complete ([id number]) Assessment & Plan Assessment & Plan (1) Pre-op evaluation: Code(s): Z01.818 - Encounter for other preprocedural examination Category: Medical Plan: Patient is at average risk for moderate risk procedure. She is cleared for surgery. The only lab that was not drawn was the PT/INR. We will get that today. (2) CKD stage 3 due to type 2 diabetes mellitus: Code(s): E11.22 - Type 2 diabetes mellitus with diabetic chronic kidney disease; N18.30 - Chronic kidney disease, stage 3 unspecified Category: Medical Plan: Stable (3) Controlled type 2 diabetes mellitus: Code(s): E11.9 - Type 2 diabetes mellitus without complications Category: Medical Qualifiers: Chronic kidney disease stage: stage 3 (moderate) Diabetes mellitus complication detail: with chronic kidney disease Diabetes mellitus complication status: with kidney complications Diabetes mellitus group home insulin use: without group home use Qualified Code(s): E11.22 - Type 2 diabetes mellitus with diabetic chronic kidney disease; N18.30 - Chronic kidney disease, stage 3 unspecified Plan: Well-controlled (4) HTN (hypertension): Code(s): I10 - Essential (primary) hypertension Category: Medical Qualifiers: Hypertension type: primary hypertension Qualified Code(s): I10 - Essential (primary) hypertension Plan: WNL. Continue current regimen Echo ordered for possible LVH noted on EKG. (5) Dyslipidemia: Code(s): E78.5 - Hyperlipidemia, unspecified Category: Medical Plan: Controlled. We will monitor. (6) Right hip pain: Code(s): M25.551 - Pain in right hip Category: Medical Plan: Following with ortho Orders: Orders Prothrombin Time INR Today Z01.818 - Encounter for other preprocedural examination CA echo transthoracic complete Today I10 - Essential (primary) hypertension, R94.31 - Abnormal electrocardiogram [ECG] [EKG]
[2025-04-12 11:11] VITALS: BP 134/72; PULSE 76; RESP 16; TEMP 36.5; O2SAT 97; BMI 31.7
--- OUTSIDE RECORDS SUMMARY | 2025-04-12 13:27 | XMS_ITS | Clinical Summary ---
Author Organization [facility] Address [address] [place] [address] Phone Care Team Providers Care Cross Tie Maker Name Role Phone Richelle Holcomb Primary Care Provider [phone] Allergies Active Allergy Reactions Criticality Noted Date [...] this topic Medical Devices Implanted Type Area Supervisor Offset Plate Preparation Device Identifier Shelf Expiration Date Model / Serial / Lot Bilateral Knee Replacements Permanent Oral Bridges Acetabular Shell 54mm Size F G7 Porous Plasma Osteen Limited Hole - [id number] Implanted:Qty: 1 on 09/28/2018 by Gaurav Hay[place] MD at [facility] Left: Hip [employer] 07/17/2028 [id number] / / [id number] Screw Dome 6.5x35mm G7 Aceetabular Low Profile Hip - [id number] Implanted:Qty: 1 on 09/28/2018 by Gaurav [place] MD at [facility] Left: Hip [employer] 07/20/2023 [id number] / / [id number] Acetabular Liner 36 Mmf G7 Polyethylene Arcomxl Neutral - [id number] Implanted:Qty: 1 on 09/28/2018 by Gaurav Hay[place] MD at [facility] Left: Hip [employer] 07/27/2023 [id number] / / [id number] Hip Stem [id number] 135deg Echo Bimetric Revision Titanium Porous Reduced Proximalimal Profile Neck - [id number] Implanted:Qty: 1 on 09/28/2018 by Gaurav Hay[place] MD at [facility] Left: Hip [employer] 08/23/2028 [id number] / / [id number] Hip Head 1 36mm Minus 3 Implant Femoral Hd Modular [place] 05 - [id number] Implanted:Qty: 1 on 09/28/2018 by Gaurav Hay[place] MD at [facility] Left: Hip [employer] 07/15/2028 [id number] / / [id number] Procedures Procedure Name Priority Date/Time Associated Diagnosis Comments BASIC METABOLIC PANEL Routine 09/29/2018 4:39 AM EDT from Last 3 Months or Most Recently Relevant to Health Maintenance Results * (ABNORMAL) Basic metabolic panel (09/29/2018 4:39 AM EDT) SODIUM 135 133 - 146 mmol/L [facility] CHLORIDE 99 96 - 108 mmol/L [facility] POTASSIUM 4.6 3.3 - 5.1 mmol/L [facility] CO2 23 21 - 35 mmol/L [facility] BUN 19 6 - 19 mg/dL [facility] CREATININE 0.90 0.5 - 1.5 mg/dL [facility] GLUCOSE 189(H) 70 - 99 mg/dL [facility] CALCIUM 8.6 8.4 - 10.3 mg/dL [facility] EGFR 63 >59 mL/min/1.7 3m2 [facility] Comment:If patient is black, multiply result by 1.159. Estimated glomerular filtration rate calculated using the CKD-EPI equation. ANION GAP 18 10 - 20 mmol/L [facility] Blood 09/29/2018 4:39 AM EDT 09/29/2018 5:07 AM EDT us Gaurav Hayden MD LAB BLOOD ORDERABLES Final R esult [facility] [address] [place] [address] from Last 3 Months or Most Recently Relevant to Health Maintenance Insurance MEDICARE PART A & B [employer] MEDEX SUPPLEMENT MEDICARE PART A & B S[employer] CR[employer] MEDEX SUPPLEMENT MEDICARE PART A & B [employer] MEDEX SUPPLEMENT MEDICARE PART A & B [employer] MED[employer] SUPPLEMENT MEDICARE PART A & B [employer] MED[employer] SUPPLEMENT MEDICARE PART A & B [employer] MEDEX SUPPLEMENT MEDICARE PART A & B BLUE CROSS MEDEX SUPPLEMENT MEDICARE PART A & B SFOX [employer]OSS MEDEX SUPPLEMENT MEDICARE PART A & B SFOX CROSS MEDEX SUPPLEMENT Advance Directives For more information, please contact: [phone] (9AM - 5PM [facility], Wednesday-Wednesday) Documents on File Type Date Recorded Patient Nutrition Services Aide Expl anation Healthcare Proxy 10/03/2018 11:50 AM * Full Code (Presumed) (Latest Code Status on File) Date Activated Date Inactivated Comments 09/28/2018 7:58 PM 10/01/2018 2:50 PM * Full Code (Presumed) Date Activated Date Inactivated Comments 09/28/2018 11:42 AM 09/28/2018 7:58 PM Care Teams Cross Tie Maker Relationship Specialty Start Date End Date Richelle Holcomb PA [address] [place] [address] PCP - General Physician Compactor Driver 08/28/24 Additional Source Comments The information contained in this document represents components of the legal health record. It is not the complete legal health record.[facility]
--- OUTSIDE RECORDS SUMMARY | 2025-04-12 13:27 | XMS_ITS | Encounter Summary ---
Author Organization [facility] Address [address] [place] [address] Phone Care Team Providers Care Dye And Chemical Coordinator Name Role Phone Noel Paul MD Primary Care Provider Marija Muniz MD Primary Care Provider [phone] Richelle Holcomb Primary Care Provider [phone] Encounter Details Date Type Department Care Team (Late st Contact Info) Description 12/27/2017 Ancillary Orders [address] [address] Irina Velasquez MD [address] [place] [address] Orthopedics & Sports Medicine, [place] [address] [email or web address] Left hip pain Social History Tobacco Use [...] thigh documented in this encounter Care Teams Dye And Chemical Coordinator Relationship Specialty Start Date End Date Noel Paul MD PCP - General Internal Medicine 12/08/17 09/07/18 Marija Schultz MD [address] [place] [address] [email or web address] PCP - General Internal Medicine 09/08/18 08/27/24 Richelle Holcomb PA [address] [place] [address] PCP - General Physician Medieval English Literature Professor 08/28/24 documented as of this encounter Additional Source Comments The information contained in this document represents components of the legal health record. It is not the complete legal health record.[facility]
--- OUTSIDE RECORDS SUMMARY | 2025-04-12 13:27 | XMS_ITS | Encounter Summary ---
Author Organization [facility] Address [address] [place] [address] Phone Care Team Providers Care Tomato Pulper Operator Name Role Phone Noel Paul MD Primary Care Provider Marija Muniz MD Primary Care Provider [phone] Richelle Holcomb Primary Care Provider [phone] Encounter Details Date Type Department Care Team (Late st Contact Info) Description 05/30/2018 Ancillary Orders [address] [address] Irina Velasquez MD [address] [place] [address] Orthopedics & Sports Medicine, [place] [address] [email or web address] Left hip pain Social History Tobacco Use [...] thigh documented in this encounter Care Teams Tomato Pulper Operator Relationship Specialty Start Date End Date oNel Paul MD PCP - General Internal Medicine 12/08/17 09/07/18 Marija Schultz MD [address] [place] [address] [email or web address] PCP - General Internal Medicine 09/08/18 08/27/24 Richelle Holcomb PA [address] [place] [id number] PCP - General Physician All Purpose Clerk 08/28/24 documented as of this encounter Additional Source Comments The information contained in this document represents components of the legal health record. It is not the complete legal health record.[facility]
--- OUTSIDE RECORDS SUMMARY | 2025-04-12 13:27 | XMS_ITS | Encounter Summary ---
Author Organization [facility] Address [address] [place] [address] Phone Care Team Providers Care Director Sports Name Role Phone Noel Paul MD Primary Care Provider Marija Muniz MD Primary Care Provider [phone] Richelle Holcomb Primary Care Provider [phone] Encounter Details Date Type Department Care Team (Late st Contact Info) Description 05/30/2018 Ancillary Orders [facility] Orthopedics & Sports Medicine [address] [place] [address] Irina Velasquez MD [address] [place] [address] Orthopedics & Sports Medicine, [facility]. [place], [place] [id number] [email or web address] Social History Tobacco Use Types Packs/Day Years [...] on filedocumented in this encounter Care Teams Director Sports Relationship Specialty Start Date End Date Noel Paul MD PCP - General Internal Medicine 12/08/17 09/07/18 Marija Schultz MD [address] [place] [address] [email or web address] PCP - General Internal Medicine 09/08/18 08/27/24 Richelle Holcomb PA [address] [place] [address] PCP - General Physician Director Hydrogen Storage Engineering 08/28/24 documented as of this encounter Additional Source Comments The information contained in this document represents components of the legal health record. It is not the complete legal health record.[facility]
--- OUTSIDE RECORDS SUMMARY | 2025-04-12 13:28 | XMS_ITS | Encounter Summary ---
Author Organization [facility] Address [address] [place] [address] Phone Care Team Providers Care Fishing Tool Supervisor Name Role Phone Marija Schultz MD Primary Care Provider Richelle Holcomb Primary Care Provider [phone] Encounter Details Date Type Department Care Team (Late st Contact Info) Description 09/28/2018 Procedure Pass [place] Admitting Dept - Virtual Department [address] [place] [address] Social History Tobacco Use Types Packs/Day Years [...] on filedocumented in this encounter Care Teams Fishing Tool Supervisor Relationship Specialty Start Date End Date Marija Schultz MD [address] [address] [email or web address] PCP - General Internal Medicine 09/08/18 08/27/24 Richelle Holcomb PA [address] [place] [address] PCP - General Physician Fiberglass Autobody Repairer 08/28/24 documented as of this encounter Additional Source Comments The information contained in this document represents components of the legal health record. It is not the complete legal health record.[facility]
--- OUTSIDE RECORDS SUMMARY | 2025-04-12 13:28 | XMS_ITS | Encounter Summary ---
Author Organization [facility] Address [address] [place] [address] Phone Care Team Providers Care Electrician Sound Name Role Phone Noel Paul MD Primary Care Provider Marija Muniz MD Primary Care Provider [phone] Richelle Holcomb Primary Care Provider [phone] Encounter Details Date Type Department Care Team (Late st Contact Info) Description 12/27/2017 Ancillary Orders [facility] Orthopedics & Sports Medicine [address] [place] [address] Irina Velasquez MD [address] [place] [address] Orthopedics & Sports Medicine, [facility] [place], [place] [id number] [email or web address] Social History Tobacco Use Types Packs/Day Years [...] on filedocumented in this encounter Care Teams Electrician Sound Relationship Specialty Start Date End Date Noel Paul MD PCP - General Internal Medicine 12/08/17 09/07/18 Marija Schultz MD [address] [place] [address] [email or web address] PCP - General Internal Medicine 09/08/18 08/27/24 Richelle Holcomb PA [address] [place] [address] PCP - General Physician Commercial Production Editor 08/28/24 documented as of this encounter Additional Source Comments The information contained in this document represents components of the legal health record. It is not the complete legal health record.[facility]
--- OUTSIDE RECORDS SUMMARY | 2025-04-12 13:28 | XMS_ITS | Clinical Summary ---
Author Organization [facility] Address [address] [place] [address] Phone Care Team Providers Care Technical Training Manager Name Role Phone Richelle Holcomb PA-C Primary [...] 2 tablets at night . Active Multiple Vitamins-Commercial Door Installer als (PRESERVISION AREDS 2 PO) Take by [...] Office Visit [facility] [address] [address] Slim Brito MD Other acute kidney failure (HCC) (Primary Dx); Stage 3b chronic kidney disease (HCC); Hypertensive chronic kidney disease 02/20/2025 Orders Only [facility] [address] [place] [id number] Slim Brito MD Stage 3a chronic kidney [...] Office Visit [facility] [address] [place] [phone] Slim Brito MD [address] [phone] Health Maintenance Due Date Last Done Comments [...] Creatinine, Ur 112.2 Not Estab. mg/dL [facility] Protein, Ur 23.7 Not Estab. mg/dL [facility] Urine Protein/Creati nine Ratio 211(H) 0 - 200 mg/g creat [facility] Urine specimen (specimen) Urine specimen obtained by clean catch procedure / Unknown 03/16/2025 7:37 AM EDT 03/16/2025 us Slim Brito MD LAB URINE ORDERABLES Final Resu lt [email or web address] [facility] [address] [place] [address] * Vitamin D 25 hydroxy (03/16/2025 7:37 AM EDT) Vitamin D, 25-OH, Total 31.9 30.0 - 100.0 ng/mL [facility] Comment: Vitamin D deficiency has been defined by the [place] of Medicine and an Endocrine Society practice guideline as a level of serum 25-OH vitamin D less than 20 ng/mL (1,2). The Endocrine Society went on to further define vitamin D insufficiency as a level between 21 and 29 ng/mL (2). 1. IOM ([place] of Medicine). 2010. Dietary reference intakes for [...] ORDERABLES Final Resu lt Performing Organization Address City/[facility]/ZIP Co de Phone Number [facility] [address] [place] [address] * PTH, intact (03/16/2025 7:37 AM EDT) PTH 26 15 - 65 pg/mL [facility] Blood specimen (specimen) Venous blood / Unknown 03/16/2025 7:37 AM EDT 03/16/2025 Slim Brito MD LAB BLOOD ORDERABLES Final Resu lt Performing Organization Address City/[facility]/ZIP Co de Phone Number [facility] [address] [place] [address] * (ABNORMAL) Renal function panel (03/16/2025 7:37 AM EDT) Glucose 140(H) 70 - 99 mg/dL [facility] BUN 34(H) 8 - 27 mg/dL [facility] Creatinine 1.62(H) 0.57 - 1.00 mg/dL [facility] eGFR CKD-EPI CR 2020 32(L) >59 mL/min/1.7 3 [facility] BUN/Creatinine Ratio 21 12 - 28 [facility] Sodium 137 134 - 144 mmol/L [facility] Potassium 3.8 3.5 - 5.2 mmol/L [facility] Chloride 103 96 - 106 mmol/L [facility] Bicarbonate (CO2) 19(L) 20 - 29 mmol/L [facility] Calcium 9.9 8.7 - 10.3 mg/dL [facility] Albumin 4.5 3.7 - 4.7 g/dL [facility] Phosphorus 3.5 3.0 - 4.3 mg/dL [facility] Blood specimen (specimen) Venous blood / Unknown 03/16/2025 7:37 AM EDT 03/16/2025 Slim Brito MD LAB BLOOD ORDERABLES Final Resu lt [facility] [address] [place] [address] from Last 3 Months Insurance Medicare [facility] Medicare [facility] Care Teams Technical Training Manager Relationship Specialty Start Date End Date Richelle Holcomb PA-C [address] [place] [address] PCP - General Physician Blending Tank Tender 10/21/22
== END 2025-04-12 11:38 | disposition home or self-care (01) ==
LOC: HO.HMCFM 10:54
PROVIDERS: PCP Physician Assistant; Visit Provider Physician Assistant
DX: Z01.818 Encounter for other preprocedural examination (principal); E11.22 Type 2 diabetes mellitus with diabetic chronic kidney disease; N18.30 Chronic kidney disease, stage 3 unspecified; I10 Essential (primary) hypertension; E78.5 Hyperlipidemia, unspecified; M25.551 Pain in right hip

== ENCOUNTER 2025-04-12 10:53 | Outpatient (REF) | payer MEDICARE, SELFPAY ==
[2025-04-12 14:26] LABS: MANUAL DIFF FLAG NO
[2025-04-12 14:43] LABS: Hematocrit 38.3 % (37.0-47.0); Hemoglobin 12.6 g/dl (12.0-16.0); Imm Gran Abs Auto 0.02 X10*3/uL (0.00-0.03); Imm Gran Pct Auto 0.3 % (0.0-0.4); Lymphocytes Absolute Auto 2.4 X10*3/uL (1.2-4.9); Mean Corpuscular HGB Conc 32.9 g/dl (31.0-35.0); Mean Corpuscular Hemoglobin 27.9 pg (27.0-33.0); Mean Corpuscular Volume 84.9 fL (80.0-98.0); NRBC Abs Auto 0.000 X10*3/uL (0.0-0.012); NRBC Pct Auto 0.0 /100WBC (0.0-0.2); Platelet Count 261 X10*3/uL (160-400); Red Blood Count 4.51 X10*6/uL (4.20-5.50); White Blood Count 7.3 X10*3/uL (4.8-10.8)
[2025-04-12 14:49] LABS: INTERNATIONAL NORM RATIO 1.1 (0.9-1.1); Prothrombin Time 12.2 SEC (10.9-12.4)
[2025-04-12 15:04] LABS: Anion Gap 13 (12-20); Blood Urea Nitrogen 27 mg/dL (9-16); Calcium 9.8 mg/dL (8.4-10.2); Carbon Dioxide 25 mmol/L (22-29); Chloride 108 mmol/L (96-108); Estimated Glomerular Filt Rate 29; Potassium 3.8 mmol/L (3.3-5.1); Sodium 142 mmol/L (135-145)
== END 2025-04-12 10:54 | disposition home or self-care (01) ==
LOC: HO.WFDLDS 10:53
PROVIDERS: PCP Physician Assistant; Visit Provider Physician Assistant
DX: Z01.818 Encounter for other preprocedural examination (principal); R79.89 Other specified abnormal findings of blood chemistry; E78.5 Hyperlipidemia, unspecified; E03.9 Hypothyroidism, unspecified; N18.30 Chronic kidney disease, stage 3 unspecified; I12.9 Hypertensive chronic kidney disease with stage 1 through stage 4 chronic kidney disease, or unspecified chronic kidney disease; E11.22 Type 2 diabetes mellitus with diabetic chronic kidney disease; M25.551 Pain in right hip; Z79.899 Other long term (current) drug therapy
CPT/HCPCS: 36415; 80048; 85025; 85610; 93005; 99212

== ENCOUNTER → 2025-06-05 09:45 | Outpatient (REF) | payer MEDICARE, SELFPAY ==
--- OUTSIDE RECORDS SUMMARY | 2025-06-01 09:30 | XMS_ITS | Encounter Summary ---
Author Organization [facility] Address [address] [place], [place] [id number] Phone Care Team Providers Care Cross Country And Track And Field Coach Name Role Phone Richelle Holcomb Primary Care Provider [phone] Reason for Visit * Physical Therapy (Within 3 days (urgent)) - Authorized Specialty Diagnoses / Procedures Referred By Mirza le Referred To Contact Physical Therapy Diagnoses Right THR Richelle Holcomb PA [address] [place] [address] Phone: tel: fax: [address] [address] Phone: tel: Referral ID Status Reason Start Date Expiration Date V isits Requested Visits Authorized [id number] Authorized 05/22/2025 04/27/2026 99 [phone] Encounter Details Date Type Department Care Team (Late st Contact Info) Description 06/01/2025 9:30 AM EST Office Visit [facility] [address] [place] [address] Richelle Holcomb PA [address] [place], [place] [phone] Keri Hawley, PT 10 [place], [place] [phone] [email or web address] Primary osteoarthritis of right hip (Primary Dx); Right hip pain; Presence of artificial hip joint, right Social History Tobacco Use Types Packs/Day Years [...] on file documented as of this encounter Progress Notes * Keri Hawely, PT - 06/01/2025 9:30 AM EST Subject Line: Treatment Note Physical Therapy Treatment Note Patient Name: Sol Mott Date of : 1945 Referring MD: Richelle Holcomb PA [address] [place] [address] Evaluation Date: SOC Date: 05/24/25 Diagnosis: ICD-10-CM 1. Primary osteoarthritis of right hip M16.11 2. Right hip pain M25.551 3. Presence of artificial hip joint, right Z96.641 Precautions/ Safety: Status Post R THR with the anterior approach This patient has attended 3 visits since the onset Physical Therapy. SUBJECTIVE: Patient denies any increased in R hip pain. However, she states that her back has been bothering her more recently. OBJECTIVE: Treatment Interventions: See encounter report for minutes associated with each intervention. Therapeutic Exercise: Hip ADD ball squeeze in supine 5 second holds 2x10 Hip ABD in supine with green TB 3x10 SLR 2x10 bilateral SAQ with 2# weights 2x10 bilateral LAQ with 2# weights 2x10 bilateral Therapeutic Activities: Bridges with increased cues for core activation 2x10 Sit to stand from 20 in plinth without use of UE 2x8 Standing hip ABD with 2# weights with UE support 2x10 bilateral Standing hip EXT with 2# weights with UE support 2x10 bilateral Standing march with 2# weights with UE support 2x10 bilateral 6 in anterior step ups x10 bilateral Home Exercise Program: Bridges 2x10 Sit to stand without use of UE 2x10 Hip ABD in standing with UE support 2x10 bilateral Standing march with UE support 2x10 bilateral Hip EXT in standing with UE support 2x10 bilateral Mini squat x10 Not Performed Today but will be used in future visits: Anterior and lateral step ups Lateral walk Monster walk Balance exercises including narrow base of support standing, semi tandem/ tandem stance Mini squats 6 in lateral step ups x10 bilateral ASSESSMENT: Session started with LE strengthening exercises on the treatment table. She was progressed to the green TB with supine hip ABD strengthening exercises. She reported appropriate challenge with this progression. Increased cues were provided with bridges in order to activate core with this exercise. To further address LE strength and quad activation, LAQ and SAQ with 2# weights were added into session. She tolerated SAQ and LAQ exercises well without exacerbations in pain reported. She reported slight increases in R hip pain when performing L LE anterior step ups. This increases in R hip pain may be due to increased pressure placed on the hip when in single leg stance. Increased muscular soreness was reported at the end of session. Patient would benefit from skilled physical therapy to address the above functional limitations, improve strength, increase mobility, and decrease pain so they can improve their quality of lift and return to prior level of function. PLAN: Continue to focus on functional strength and mobility at a rate of 2x/week in order to improve functional strength/ ROM so the patient can improve their quality of life. Keri Hawley, [place] [phone] documented in this encounter Plan of Treatment Upcoming Encounters Date Type Department Care Team (Late st Contact Info) Description 06/05/2025 1:30 PM EST Office Visit [facility] [address] [place] [address] Richelle Holcomb PA [address] [place] [address] Kristan Sims PTA 10 [place] [address] 06/08/2025 9:30 AM EST Office Visit [address] [address] Richelle Holcomb, [place] [address] [place], [place] [phone] Keri Hawley, PT 10 [place] [address] 06/11/2025 9:45 AM EST Office Visit [address] [address] Richelle Holcomb PA [address] [place] [address] [phone] Keri Hawley, PT 10 [place] [address] 06/15/2025 9:30 AM EST Office Visit [address] [address] Richelle Holcomb PA [address] [place] [address] [phone] Kristan Sims, ELECTRIC STOVE MECHANIC 10 [place] [address] 06/19/2025 10:15 AM EST Office Visit [address] [address] Richelle Holcomb PA [address] [place] [address] [phone] Kristan Sims, ELECTRIC STOVE MECHANIC 10 [place], [place] [phone] 06/22/2025 9:30 AM EST Office Visit [address] [address] Richelle Holcomb PA [address] [place] [address] Keri Hawley, PT 10 [place] [address] 06/26/2025 10:15 AM EST Office Visit [address] [address] Richelle Holcomb PA [address] [place] [address] Keri Hawley, PT 10 [place] [address] 06/29/2025 8:00 AM EST Office Visit [address] [address] Richelle Holcomb PA [address] [place] [address] Keri Hawley, PT 10 [place] [address] 07/11/2025 9:00 AM EST Office Visit [address] [address] Richelle Holcomb PA [address] [place] [address] Keri Hawley, PT 10 [place] [address] documented as of this encounter Visit Diagnoses Diagnosis Primary osteoarthritis of right hip- Primary Right hip pain Pain in joint, pelvic region and thigh Presence of artificial hip joint, right documented in this encounter Care Teams Cross Country And Track And Field Coach Relationship Specialty Start Date End Date Richelle Holcomb PA [address] [place] [address] [phone] PCP - General Physician Geriatric Social Worker 3/10/25 documented as of this encounter Additional Source Comments The information contained in this document represents components of the legal health record. It is not the complete legal health record.[facility]
--- NOTE | 2025-06-05 09:48 | CA_ITS ---
Transthoracic Echocardiogram Patient (Last, First, Middle): Sol Mott, Gender: F Date of : 1945 Age: 79 Procedure Date: 06/05/2025 Procedure Type: Transthoracic Echocardiogram Location: OP Height: 149.86 cm Weight: 72.58 kg BSA: 1.68 m2 Heart Rate: 88 bpm BP: 134 / 72 mmHg [place]lower [place]ast Furnace: DOUG Referring MD: Richelle Holcomb PA-C Medical Records Custodian: Kishore Guthrie MD Symptoms: I10 - Essential (primary) hypertension Study Quality: Fair but adequate ECG Rhythm: Sinus Conclusions: - 1. Mildly reduced LV ejection fraction 45-50% with possible underlying regional wall motion abnormality consistent with coronary disease with impaired relaxation filling pattern 2. Cardiac valvular Dopplers within normal limits 3. Mildly dilated ascending aorta 3.8 cm 4. No gross pericardial effusion Findings Left Ventricle Normal left ventricular cavity size. There is normal left ventricular wall thickness. The left ventricular systolic function is mildly decreased. The visually estimated ejection fraction is between 45-50%. Spectral Doppler is indicative of an impaired relaxation filling pattern. E/E prime ratio is between 8 and 15 consistent with indeterminate filling pressures. Wall Motion Rest Echo Findings The inferoseptal wall and basal inferior segment are hypokinetic. All other scored wall segments showed normal motion. Right Ventricle Normal right ventricular cavity size and systolic function. Atria The left atrium is likely dilated. There is no evidence of interatrial shunt. The right atrium is normal in size. Aortic Valve There is mild calcification of the aortic valve. There is no aortic valve stenosis. There is no aortic valve regurgitation. Mitral Valve There is mild anterior and posterior mitral leaflet thickening. There is mild mitral annular calcification. There is trace mitral valve regurgitation. There is no mitral valve stenosis. Pulmonic Valve The pulmonic valve is likely normal. Tricuspid Valve Normal tricuspid valve structure. Tricuspid regurgitation envelope is inadequate for calculation of right ventricular systolic pressure. Normal right atrial pressure. Great Vessels The pulmonary artery was not well visualized. There is mild dilatation of the ascending aorta measuring 3.80 cm. Small plaque is seen in the sino tubular ridge. Venous The inferior vena cava is normal in size and collapses greater than 50% with inspiration. Pericardium/Pleural There is no evidence of pericardial effusion. Prior Study Comparison No prior study available for comparison. Measurements 2D Linear Measurements IVSd: 1.01 0.6-0.9/0.6-1.0 cm LVIDd: 5.02 3.9-5.3/4.2-5.9 cm LVIDd Index: 2.99 2.4-3.2/2.2-3.1 cm/m2 LVIDs: 3.33 2.0-3.6 cm LVPWd: 0.78 0.7-1.1 cm LA Diam: 3.90 2.7-3.8/3.0-4.0 cm LAIDs Index: 2.32 1.5-2.3 cm/m2 LV Mass: 196.16 67-162/88-224 g LV Mass Index: 116.76 43-95/49-115 g/m2 LVOT Diam: 2.10 3.0+(-)1.3 cm 2D Systolic Function EF 4C: 41.50 >55% EF 2C: 54.10 >55% EF BiP: 46.60 >55% Mitral Valve MV Pk E: 0.55 MV PK A: 1.17 MV Decel Time: 207.00 E/A: 0.50 E'Lateral: 4.46 E'Medial: 2.94 E/E' Med: 18.60 E/E' Lat: 12.30 PHT: 61.00 MVA PHT: 3.61 Decel [place]: 2.64 Aortic Valve AoV Pk Best: 1.40 AoV Pk Grad: 8.00 LATOYA: 2.00 LVOT LVOT Pk Best: 0.81 LVOT Mn Best: 0.55 LVOT VTI: 0.19 LVOT Pk Grad: 3.00 LVOT Mn Grad: 1.00 LVOT Diam: 2.10 LVOT Area: 3.46 Diastolic Function MV Pk E: 0.55 MV Pk A: 1.17 E/A: 0.50 E'Medial: 2.94 E/E' Med: 18.60 E' Laterial: 4.46 E/E' Lat: 12.30 Right Ventricle TAPSE (mm): 16.70 TVS' Best: 13.60 Tricuspid Valve RA Press: 3.00 Great Vessels Aorta Sinus of Valsalva: 3.30 2.0-3.5 cm Ao Asc: 3.80 2.1-3.4 cm Ao Arch: 2.40 Ao Desc: 1.40 Pulmonary Veins Pulm Vein S/D 1.90 Pulmonary Valve PV Pk Best: 0.86 Peak PV Grad: 3.00 Updated in Other Vendor System with Status of Final Kishore Guthrie MD electronically signed on 06/05/2025 1:54:43 PM with status of Final
--- OUTSIDE RECORDS SUMMARY | 2025-06-05 11:36 | XMS_ITS | Encounter Summary ---
Author Organization [facility] Address [address] [place] [address] Phone Care Team Providers Care Music Executive Name Role Phone Noel Paul MD Primary Care Provider Marija Muniz MD Primary Care Provider [phone] Richelle Holcomb Primary Care Provider [phone] Encounter Details Date Type Department Care Team (Late st Contact Info) Description 12/27/2017 Ancillary Orders [address] [address] Irina Velasquez MD [address] [place] [address] Orthopedics & Sports Medicine, [place] [address] [email or web address] Left hip pain Social History Tobacco Use [...] as of this encounter Plan of Treatment Upcoming Encounters Date Type Department Care Team (Late st Contact Info) Description 06/05/2025 1:30 PM EST Office Visit [facility] [address] [place] [address] Richelle Holcomb PA [address] [place] [address] Kristan Sims, POLISHING MACHINE OPERATOR HELPER 10 [place] [address] [email or web address] 06/08/2025 9:30 AM EST Office Visit [address] [address] Richelle Holcomb, [place] [address] [place] [address] Keri Hawley, PT 10 [place] [address] [email or web address] 06/11/2025 9:45 AM EST Office Visit [address] [address] Richelle Holcomb, [place] [address] [place] [address] Keri Hawley, PT [address] [place], [place] [phone] [email or web address] 06/15/2025 9:30 AM EST Office Visit [address] [address] Richelle Holcomb PA [address] [place] [address] Kristan Sims, POLISHING MACHINE OPERATOR HELPER [address] [place] [address] [email or web address] 06/19/2025 10:15 AM EST Office Visit [address] [address] Richelle Holcomb, [place] [address] [place] [address] Kristan Sims, POLISHING MACHINE OPERATOR HELPER [address] [place] [address] 06/22/2025 9:30 AM EST Office Visit [address] [address] Richelle Holcomb, [place] [address] [place] [address] [phone] Keri Hawley, PT 10 [place] [address] 06/26/2025 10:15 AM EST Office Visit [address] [address] Richelle Holcomb, [place] [address] [place] [address] [phone] Keri Hawley, PT 10 [place] [address] [email or web address] 06/29/2025 8:00 AM EST Office Visit [address] [address] Richelle Holcomb, [place] [address] [place] [address] [phone] Keri Hawley, PT [address] [place] [address] [email or web address] 07/11/2025 9:00 AM EST Office Visit [address] [address] Richelle Holcomb, [place] [address] [place] [address] [phone] Keri Hawley, PT [address] [place] [address] Pending Results Name Type Priority Associated Diagnoses [...] thigh documented in this encounter Care Teams Music Executive Relationship Specialty Start Date End Date Noel Paul MD PCP - General Internal Medicine 12/08/17 09/07/18 Marija Schultz MD [address] [place] [address] [place] [address] [email or web address] PCP - General Internal Medicine 09/08/18 08/27/24 Richelle Holcomb PA [address] [place] [address] PCP - General Physician Coating Line Worker 08/28/24 documented as of this encounter Additional Source Comments The information contained in this document represents components of the legal health record. It is not the complete legal health record.[facility]
--- OUTSIDE RECORDS SUMMARY | 2025-06-05 11:36 | XMS_ITS | Encounter Summary ---
Author Organization [facility] Address [address] [place] [address] Phone Care Team Providers Care Bottle Line Worker Name Role Phone Noel Paul MD Primary Care Provider Marija Muniz MD Primary Care Provider [phone] Richelle Holcomb Primary Care Provider [phone] Encounter Details Date Type Department Care Team (Late st Contact Info) Description 12/27/2017 Ancillary Orders [facility] [address] [place] [address] Irina Velasquez MD [address] [place] [address] Orthopedics & Sports Medicine, [facility] [place] [address] [email or web address] Social History [...] Description 06/05/2025 1:30 PM EST Office Visit [facility] [address] [place] [address] Richelle Holcomb PA [address] [place] [address] Kristan Sims, TAXI PROPRIETOR 10 [place] [address] [email or web address] 06/08/2025 9:30 AM EST Office Visit [address] [address] Richelle Holcomb PA [address] [place] [address] Keri Hawley, PT 10 [place] [address] [email or web address] 06/11/2025 9:45 AM EST Office Visit [address] [address] Richelle Holcomb PA [address] [place] [address] Keri Hawley, PT 10 [place], [place] [phone] [email or web address] 06/15/2025 9:30 AM EST Office Visit [address] [address] Richelle Holcomb PA [address] [place] [address] Kristan Sims, TAXI PROPRIETOR 10 [place] [address] [email or web address] 06/19/2025 10:15 AM EST Office Visit [address] [address] Richelle Holcomb, [place] [address] [place] [address] Kristan Sims, TAXI PROPRIETOR [address] [place] [address] [email or web address] 06/22/2025 9:30 AM EST Office Visit [address] [address] Richelle Holcomb, [place] [address] [place] [address] [phone] Keri Hawley, PT 10 [place] [address] [email or web address] 06/26/2025 10:15 AM EST Office Visit [address] [address] Richelle Holcomb, MON[place] [address] [place] [address] [phone] Keri Hawley, PT 10 [place], [place] [phone] [email or web address] 06/29/2025 8:00 AM EST Office Visit [address] [address] Richelle Holcomb, MON[place] [address] [place] [address] [phone] Keri Hawley, PT [address] [place], [place] [phone] [email or web address] 07/11/2025 9:00 AM EST Office Visit [address] [address] Richelle Holcmob, [place] [address] [place] [address] [phone] Keri Hawley, PT [address] [place], [place] [phone] [email or web address] documented as of this encounter Visit Diagnoses Not on filedocumented in this encounter Care Teams Bottle Line Worker Relationship Specialty Start Date End Date Noel Paul MD PCP - General Internal Medicine 12/08/17 09/07/18 Marija Schultz MD [address] [place] [address] [email or web address] PCP - General Internal Medicine 09/08/18 08/27/24 Richelle Holcomb PA [address] [place] [address] PCP - General Physician Acute Care Physician 08/28/24 documented as of this encounter Additional Source Comments The information contained in this document represents components of the legal health record. It is not the complete legal health record.[facility]
--- OUTSIDE RECORDS SUMMARY | 2025-06-05 11:36 | XMS_ITS | Encounter Summary ---
Author Organization [facility] Address [address] [place] [address] Phone Care Team Providers Care Store Protection Specialist Name Role Phone Marija Schultz MD Primary Care Provider [phone] Richelle Holcomb Primary Care Provider [phone] Encounter Details Date Type Department Care Team (Late st Contact Info) Description 09/28/2018 Procedure Pass OR Admitting Dept - Virtual Department [address] [place] [address] Social History Tobacco Use Types Packs/Day Years [...] Description 06/05/2025 1:30 PM EST Office Visit [facility] [address] [place] [address] Richelle Holcomb PA [address] [place] [address] Kristan Sims PTA 10 [place] [address] 06/08/2025 9:30 AM EST Office Visit [address] [address] Richelle Holcomb, [place] [address] [place] [address] [phone] Keri Hawley, PT 10 [place] [address] 06/11/2025 9:45 AM EST Office Visit [address] [address] Richelle Holcomb, [place] [address] [place] [address] [phone] Keri Hawley, PT 10 [place] [address] 06/15/2025 9:30 AM EST Office Visit [address] [address] Richelle Holcomb PA [address] [place] [address] [phone] Kristan Sims, TANK HOUSE OPERATOR HELPER [address] [place] [address] 06/19/2025 10:15 AM EST Office Visit [address] [address] Richelle Holcomb, [place] [address] [place] [address] Kristan Sims, TANK HOUSE OPERATOR HELPER [address] [place] [address] 06/22/2025 9:30 AM EST Office Visit [address] [address] Richelle Holcomb PA [address] [place] [address] Keri Hawley, PT [address] [place] [address] 06/26/2025 10:15 AM EST Office Visit [address] [address] Richelle Holcomb, PA [address] [place] [address] [phone] Keri Hawley, PT [address] [place] [address] 06/29/2025 8:00 AM EST Office Visit [address] [address] Richelle Holcomb, [place] [address] [place] [address] Keri Hawley, PT [address] [place] [address] 07/11/2025 9:00 AM EST Office Visit [address] [address] Richelle Holcomb, PA [address] [place] [address] [phone] Keri Hawley, PT [address] [place] [address] documented as of this encounter Visit Diagnoses Not on filedocumented in this encounter Care Teams Store Protection Specialist Relationship Specialty Start Date End Date Marija Schultz MD [address] [place] [address] [email or web address] PCP - General Internal Medicine 09/08/18 08/27/24 Richelle Holcomb PA [address] [place] [address] PCP - General Physician Tile Molder 08/28/24 documented as of this encounter Additional Source Comments The information contained in this document represents components of the legal health record. It is not the complete legal health record.[facility]
--- OUTSIDE RECORDS SUMMARY | 2025-06-05 11:36 | XMS_ITS | Clinical Summary ---
Author Organization [facility] Address [address] [place] [id number] Phone Care Team Providers Care Right Of Way Maintenance Supervisor Name Role Phone Richelle Holcomb Primary Care Provider [phone]- [phone] Allergies Active Allergy Reactions Criticality Noted Date [...] Encounters Date Type Department Care Team Description 06/01/2025 9:30 AM EST Office Visit [address] [address] Richelle Holcomb PA Casares, Sabrina, PT Primary osteoarthritis of right hip (Primary Dx); Right hip pain; Presence of artificial hip joint, right 05/28/2025 9:45 AM EST Office Visit [address] [address] Richelle Holcomb PA Casares, Sabrina, PT Primary osteoarthritis of right hip (Primary Dx); Right hip pain; Presence of artificial hip joint, right 05/24/2025 9:30 AM EST Office Visit [address] [address] Richelle Holcomb PA Casares, Sabrina, PT Primary osteoarthritis of right hip (Primary Dx); Right hip pain; Presence of artificial hip joint, right 05/24/2025 Plan of Care Documentation [address] [address] 04/27/2025 Transcribe Orders [facility] [address] [place] [address] Jazz Hdz Encounter for rehabilitation (Primary Dx) from Last 3 Months Immunizations [...] 10/31/2018 11:04 AM EDT Plan of Treatment Upcoming Encounters Date Type Department Care Team (Late st Contact Info) Description 06/05/2025 1:30 PM EST Office Visit [facility] [address] [address] Richelle Holcomb, [place] [address] [place] [address] [phone] Kristan Sims, EXHAUST AND MUFFLER REPAIRER [address] [place] [address] [email or web address] 06/08/2025 9:30 AM EST Office Visit [address] [address] Richelle Holcomb PA [address] [place] [address] [phone] Keri Hawley, PT [address] [place] [address] 06/11/2025 9:45 AM EST Office Visit [address] [address] Richelle Holcomb, [place] [address] [place] [phone] Keri Hawley, PT [address] [place] [address] 06/15/2025 9:30 AM EST Office Visit [address] [address] Richelle Holcomb PA [address] [place] [phone] Kristan Sims, EXHAUST AND MUFFLER REPAIRER [address] [place] [address] [email or web address] 06/19/2025 10:15 AM EST Office Visit [address] [address] Richelle Holcomb PA [address] [place] [address] [phone] Kristan Sims, EXHAUST AND MUFFLER REPAIRER [address], [place] [phone] [email or web address] 06/22/2025 9:30 AM EST Office Visit [address] [address] Richelle Holcomb, [place] [address] [place] [address] [phone] Keri Hawley, PT [address], [place] [phone] [email or web address] 06/26/2025 10:15 AM EST Office Visit [address] [address] Richelle Holcomb, [place] [address] [place] [address] [phone] Keri Hawley, PT [address], [place] [phone] [email or web address] 06/29/2025 8:00 AM EST Office Visit [address] [address] Richelle Holcomb, [place] [address] [place] [address] [phone] Keri Hawley, PT [address], [place] [phone] [email or web address] 07/11/2025 9:00 AM EST Office Visit [address] [phone] Richelle Holcomb, [place] [address] [place] [address] [phone] Keri Hawley, PT [address], [place] [phone] [email or web address] Health Maintenance Due Date Last Done Comments [...] this topic Medical Devices Implanted Type Area Grain Elevator Agent Device Identifier Shelf Expiration Date Model / Serial / Lot Bilateral Knee Replacements Permanent Oral Bridges Acetabular Shell 54mm Size F G7 Porous Plasma [place] [employer] Hole - [id number] Implanted:Qty: 1 on 09/28/2018 by Gaurav Hyaden MD at [facility] Left: Hip [employer] 07/17/2028 [id number] / / [id number] Screw Dome 6.5x35mm G7 Aceetabular Low Profile Hip - [id number] Implanted:Qty: 1 on 09/28/2018 by Gaurav Hayden MD at [facility] Left: Hip [employer] 07/20/2023 [id number] / / [id number] Acetabular Liner 36 Mmf G7 Polyethylene Arcomxl Neutral - [id number] Implanted:Qty: 1 on 09/28/2018 by Gaurav Hayden MD at [facility] Left: Hip [employer] 07/27/2023 [id number] / / [id number] Hip Stem [id number] 135deg Echo Bimetric Revision Titanium Porous Reduced Proximalimal Profile Neck - [id number] Implanted:Qty: 1 on 09/28/2018 by Gaurav Hayden MD at [facility] Left: Hip [employer] 08/23/2028 [id number] / / [id number] Hip Head 1 36mm Minus 3 Implant Femoral Hd Modular [place] 05 - [id number] Implanted:Qty: 1 on 09/28/2018 by Gaurav Hayden MD at [facility] Left: Hip [employer] 07/15/2028 [id number] / / [id number] Procedures Procedure Name Priority Date/Time Associated Diagnosis Comments BASIC METABOLIC PANEL (BMP) Routine 09/29/2018 4:39 AM EDT from Last 3 Months or Most Recently Relevant to Health Maintenance Results * (ABNORMAL) Basic metabolic panel (09/29/2018 4:39 AM EDT) SODIUM 135 133 - 146 mmol/L [facility] CHLORIDE 99 96 - 108 mmol/L [facility] POTASSIUM 4.6 3.3 - 5.1 mmol/L [facility] CO2 23 21 - 35 mmol/L [facility] BUN 19 6 - 19 mg/dL [facility] CREATININE 0.90 0.5 - 1.5 mg/dL [facility] GLUCOSE 189(H) 70 - 99 mg/dL [facility] CALCIUM 8.6 8.4 - 10.3 mg/dL [facility] EGFR 63 >59 mL/min/1.7 3m2 [facility] Comment:If patient is black, multiply result by 1.159. Estimated glomerular filtration rate calculated using the CKD-EPI equation. ANION GAP 18 10 - 20 mmol/L [facility] Blood 09/29/2018 4:39 AM EDT 09/29/2018 5:07 AM EDT us Gaurav Hayden MD LAB BLOOD BKR ORDERABLES Fin al Result [facility] [address] [place] [address] from Last 3 Months or Most Recently Relevant to Health Maintenance Insurance [facility] [place] PART A & B [employer] MEDEX SUPPLEMENT [facility] [place] B [employer] MEDEX SUPPLEMENT MEDICARE PART A & B [employer] MEDEX SUPPLEMENT [employer] MEDEX SUPPLEMENT MEDICARE PART A & B [employer] MEDEX SUPPLEMENT MEDICARE PART A & B [employer] MED[employer] SUPPLEMENT MEDICARE PART A & B [employer] MED[employer] SUPPLEMENT MEDICARE PART A & B [employer] MEDEX SUPPLEMENT MEDICARE PART A & B [employer] MEDEX SUPPLEMENT Advance Directives For more information, please contact: [phone] (9AM - 5PM Cathy/[facility], Wednesday-Wednesday) Documents on File Type Date Recorded Patient Information Systems Security Manager Expl anation Healthcare Proxy 10/03/2018 11:50 AM * Full Code (Presumed) (Latest Code Status on File) Date Activated Date Inactivated Comments 09/28/2018 7:58 PM 10/01/2018 2:50 PM * Full Code (Presumed) Date Activated Date Inactivated Comments 09/28/2018 11:42 AM 09/28/2018 7:58 PM Care Teams Right Of Way Maintenance Supervisor Relationship Specialty Start Date End Date Richelle Holcomb PA [address] [place] [id number] PCP - General Physician Washing Machine Installer 08/28/24 Additional Source Comments The information contained in this document represents components of the legal health record. It is not the complete legal health record.[facility]
--- OUTSIDE RECORDS SUMMARY | 2025-06-05 11:36 | XMS_ITS | Encounter Summary ---
Author Organization [facility] Address [address] [place] [address] Phone Care Team Providers Care Orthopaedic Nurse Name Role Phone Noel Paul MD Primary Care Provider Marija Muniz MD Primary Care Provider Richelle Holcomb Primary Care Provider [phone]- [phone] Encounter Details Date Type Department Care Team (Late st Contact Info) Description 05/30/2018 Ancillary Orders [facility] [address] [place] [address] Irina Velasquez MD [address] [place] [address] Orthopedics & Sports Medicine, [facility] [place] [address] [email or web address] Social History Tobacco Use Types Packs/Day Years [...] Description 06/05/2025 1:30 PM EST Office Visit [facility] [address] [place] [address] Richelle Holcomb PA [address] [place] [phone] Kristan Sims, CASHIER OFFICE [address] [place] [address] [email or web address] 06/08/2025 9:30 AM EST Office Visit [address] [address] Richelle Holcomb PA [address] [place] [phone] Keri Hawley, PT [address] [place] [address] [email or web address] 06/11/2025 9:45 AM EST Office Visit [address] [address] Richelle Holcomb PA [address] [place] [address] Keri Hawley, PT [address] [place], [place] [phone] [email or web address] 06/15/2025 9:30 AM EST Office Visit [address] [address] Richelle Holcomb PA [address] [place] [phone] Kristan Sims, CASHIER OFFICE [address] [place] [address] [email or web address] 06/19/2025 10:15 AM EST Office Visit [address] [address] Richelle Holcomb, [place] [address] [place] [address] Kristan Sims, CASHIER OFFICE [address] [place] [address] [email or web address] 06/22/2025 9:30 AM EST Office Visit [address] [address] Richelle Holcomb, [place] [address] [place] [address] [phone] Keri Hawley, PT [address] [place] [address] [email or web address] 06/26/2025 10:15 AM EST Office Visit [address] [address] Richelle Holcomb, [place] [address] [place] [address] [phone] Keri Hawley, PT [address] [place], [place] [phone] [email or web address] 06/29/2025 8:00 AM EST Office Visit [address] [address] Richelle Holcomb, [place] [address] [place] [address] [phone] Keri Hawley, PT [address] [place], [place] [phone] [email or web address] 07/11/2025 9:00 AM EST Office Visit [address] [address] Richelle Holcomb, [place] [address] [place] [address] [phone] Keri Hawley, PT [address] [place], [place] [phone] [email or web address] documented as of this encounter Visit Diagnoses Not on filedocumented in this encounter Care Teams Orthopaedic Nurse Relationship Specialty Start Date End Date Noel Paul MD PCP - General Internal Medicine 12/08/17 09/07/18 Marija Schultz MD [address] [place] [address] [place] [address] [email or web address] PCP - General Internal Medicine 09/08/18 08/27/24 Richelle Holcomb PA [address] [place] [address] PCP - General Physician Adjunct Business Instructor 08/28/24 documented as of this encounter Additional Source Comments The information contained in this document represents components of the legal health record. It is not the complete legal health record[facility]
== END ==
LOC: HO.CARD 09:45
PROVIDERS: PCP Physician Assistant; Visit Provider Physician Assistant
DX: I10 Essential (primary) hypertension (principal); R94.31 Abnormal electrocardiogram [ECG] [EKG]
CPT/HCPCS: 93306

== ENCOUNTER → 2025-06-05 09:48 | Outpatient (BNV) | payer MEDICARE, SELFPAY | PROVIDERS: PCP Physician Assistant; Visit Provider Internal Medicine Cardiovascular Disease | DX: I51.89 Other ill-defined heart diseases (principal); I77.810 Thoracic aortic ectasia | CPT/HCPCS: 93306 ==